=== PATIENT | male | born 1940 | race Caucasian/White ===

== ENCOUNTER 2019-02-28 17:36 | Inpatient (IN) ==
--- OUTSIDE RECORDS SUMMARY | 2019-02-28 17:40 | External Medical Summary | Continuity of Care Document ---
:1940 Author Name Taurus Albarado Address Unavailable Unavailable , Care Team Providers Name Role Phone NonMNPG Verena Unavailable [email or web address] Unavailable Unavailable Unavailable Unavailable Unavailable Problems Active medical history not documented Allergies and Adverse Reactions No Known Drug Allergies (Allergy) Medications MiraLax Oral Powder; MIX 1 CAPFUL (17GM) IN 8 OUNCES OF WATER, JUICE, OR TEA AND DRINK DAILY. Start: 23-May-2017 Refills: 0 Latanoprost 0.005 % Ophthalmic Solution; INSTILL 1 DROP IN BOTH EYES AT BEDTIME. Start: 23-May-2017 Refills: 0 2.5 ML Bottle Aspirin 81 MG Oral Tablet Delayed Release; TAKE 1 TABLET OUMAR LY DIRECTED. Start: 23-May-2017 Refills: 0 Labetalol HCl - 100 MG Oral Tablet; TAKE 1/2 TABLET EVERY 12 HOURS DAILY. Start: 23-May-2017 Refills: 0 Cosopt 22.3-6.8 MG/ML Ophthalmic Solutio n; INSTILL 1 DROP INTO BOTH EYES 2 TIMES DAILY. Start: 23-May-2017 Refills: 0 10 ML Bottle NovoLOG FlexPen 100 UNIT/ML Subcutaneous Solution Pen-injector; Inject 11 units with breakfast Start: 23-May-2017 Refills: 0 5 x 3 ML Pen Vitamin D3 2000 UNIT Oral Capsule; TAKE 3 CAPSULES DAILY Start: 23-May-2017 Refills: 0 amLODIPine Besylate 10 MG Oral Tablet; TAKE 1 TABLET DAILY. Start: 23-May-2017 Refills: 0 30 Tablet Bottle HumuLIN N KwikPen 100 UNIT/ML Subcutaneo us Suspension Pen-injector; Inject 11 units with breakfastm 12 units at bedtime Start: Refills: 0 3 ML Pen Atorvastatin Calcium 40 MG Oral Tablet; TAKE 1 TABLET DAILY. Start: 23-May-2017 Quantity: 90 Refills: 3 Finasteride 5 MG Oral Tablet; TAKE 1 TABLET DAILY. Start: 23-May-2017 Refills: 0 Tamsulosin HCl - 0.4 MG Oral Capsule; TAKE 1 CAPSULE BY LANDON H DAILY Start: 23-May-2017 Refills: 0 Renal Multivitamin Formula Oral Tablet; TAKE DIRECTED. Start: 23-May-2017 Refills: 0 Calcium Acetate (Phos Binder) 667 MG Ora l Capsule; TAKE 1 CAPSULE 3 TIMES DAILY WITH MEALS. Start: 23-May-2017 Refills: 0 Procedures History of laminectomy Status: Completed Immunizations Varicella On: 09-Apr-2016 Tdap On: 26-May-2016 Pneumovax 23 25 MCG/0.5ML Injection Injectable On: 09-Apr-20 17 Influenza On: 12-May-2017 Family History Unknown Family Member Family history of ESRD (end stage renal Status: Active Comments: Family History disease) (585.6) (N18.6) Social History - Smoking Status Former smoker Plan of Treatment Planned Observations Planned Goals not documented Results No Known Results Results not documented Encounters Appointment; Hilton Mosley PA-C 24-May-2017 15:00 Encounter Diagnosis: Problem not documented Appointment; Donna Gifford R.D. 24-May-2017 14:00 Encounter Diagnosis: Problem not documented
[2019-02-28] MEDS ORDERED: ALBUT/IPRATROP 3MG/0.5MG NEB 3 ML VIAL NEB STA (17:49)
[2019-02-28] MEDS ORDERED: ONDANSETRON INJ 2 MG/ML 2 ML VIAL IV STA (17:49)
[2019-02-28] MEDS ORDERED: ALBUTEROL 0.083% NEBU SOLN 3 ML VIAL ONE (17:50)
[2019-02-28] MEDS ORDERED: ALBUTEROL 0.083% NEBU SOLN 3 ML VIAL NEB STA (17:55)
[2019-02-28 18:21] LABS: Basophils # (auto) 0.02 K/uL (0-0.2); Basophils % (auto) 0.1 %; Eosinophils # (auto) 0.05 K/uL (0-0.5); Eosinophils % (auto) 0.4 %; Hematocrit (blood only) 29.2 % (42-52); Hemoglobin 9.4 g/dL (14.0-18.0); Immature Granulocytes # (auto) 0.04 K/uL (0.00-0.02); Immature Granulocytes % (auto) 0.3 %; Lymphocytes # (auto) 0.99 K/uL (1.2-3.4); Lymphocytes % (auto) 7.3 %; Mean Corpuscular Hgb Conc 32.2 g/dL (32-36); Mean Corpuscular Volume 99.3 fL (80-100); Mean Platelet Volume 9.6 fL (7.4-10.4); Monocytes % (auto) 8.9 %; Neutrophils # (auto) 11.23 K/uL (1.4-6.5); Platelet Count 303 K/uL (130-400); RDW Coefficient of Variation 17.4 % (11.5-14.5); Red Blood Count 2.94 M/uL (4.7-6.1); White Blood Count 13.53 K/uL (4.8-10.8)
[2019-02-28 18:28] LABS: iSTAT Creatinine 8.2 mg/dl (0.6-1.3); iSTAT Hemoglobin 9.9 g/dl (14.0-18.0); iSTAT Ionized Calcium 1.07 mmol/l (1.12-1.32); iSTAT Potassium 4.1 mEq/L (3.3-5.0)
[2019-02-28 19:06] LABS: Alanine Aminotransferase < 6 U/L (12-78); Albumin Globulin Ratio 0.6 (0.9-2); Albumin Level 2.3 gm/dl (3.4-5.0); Alkaline Phosphatase 111 U/L (45-117); Aspartate Aminotransferase 41 U/L (15-37); BUN Creatinine Ratio 9.8 (10-20); Bilirubin,Total 0.5 mg/dl (0.2-1); Blood Urea Nitrogen 79 mg/dl (7-18); Calcium 8.3 mg/dl (8.5-10.1); Carbon Dioxide 28 mmol/L (21-32); Chloride 93 mmol/L (98-107); Creatine Kinase 156 U/L (39-308); Est GFR (African American) 6.8; Est GFR (Non-African American) 5.9; Globulin 4.1 gm/dl (2.5-4.0); Glucose 225 mg/dl (70-99); Potassium 4.1 mmol/L (3.5-5.1); Sodium 131 mmol/L (136-145); Total Protein 6.4 gm/dl (6.4-8.2)
--- NOTE | 2019-02-28 19:12 | XRay Report ---
SINGLE VIEW CHEST CLINICAL HISTORY: Generalized weakness. FINDINGS: An AP, portable, upright chest radiograph is obtained. No prior studies are available for c omparison at the time of dictation. The examination is degraded by portable technique and patient rot ation. The heart is enlarged and there is atherosclerotic calcification of the thoracic aorta. There is pulmonary vascular congestion and interstitial edema. There are layering pleural effusions with b ibasilar consolidation. No pneumothorax is seen. The skeletal structures are osteopenic. The bony tho rax is grossly intact. Degenerative change is noted in the shoulders and thoracic spine. IMPRESSION: 1. Cardiomegaly with evidence of congestive failure and interstitial edema. 2. Layering pleural effusions with bibasilar consolidation. This likely represents atelectasis. Jess elijah clinically for evidence of superimposed pneumonia. Electronically signed by: Jeevan Puente M.D. 02/28/2019 7:11 PM
[2019-02-28] MEDS ORDERED: FUROSEMIDE 80 MG in SYRINGE 0 ML IV ONE (19:13)
[2019-02-28] MEDS ORDERED: ASPIRIN CHEW 324 MG PO STA (19:18)
--- NOTE | 2019-02-28 20:17 | Emergency Department Note ---
Entered by Rochelle Stroud acting as a scribe for Fam Sanchez DO History of Present Illness General Chief complaint: Shortness of Breath/Dyspnea Stated complaint: SOB Time Seen by Provider: 02/28/19 17:42 Source: patient History of Present Illness Provider complaint: breathing isues Onset (ago): hour(s) 10 Location: chest Pain Consistency: + intermittent Quality: + other (raspy breahting) Relieved By: + none Exacerbated By: + none Associated symptoms: + denies other symptoms and + nausea/vomiting The patient is a 78 y/o male who presents to the emergency department for evaluation of intermittent vomiting and breathing difficulty. The patient was brought in by EMS from [facility] where he was admitted for renal failure. They state that he was on CPAP when they brought him in but he has been vomiting. The patient states that he is not feeling well in his upper half. He reports that he is nauseous and has raspy breathing. The patient states that he has a cough and a little mucous out of his nose. He notes he is on home dialysis. He denies having trouble breathing, abdominal pain, and any other symptoms. Home Medications Home Medications Medication Instructions Recorded Confirmed Type B complex with C#20-folic acid 1 cap PO DAILY 02/28/19 02/28/19 History [Renal Caps] acetaminophen 650 mg PO Q4H PRN 02/28/19 02/28/19 History aspirin 81 mg PO DAILY 02/28/19 02/28/19 History atorvastatin 40 mg PO DAILY 02/28/19 02/28/19 History bisacodyl 10 mg NE DAILY PRN 02/28/19 02/28/19 History clopidogrel 75 mg PO DAILY 02/28/19 02/28/19 History docusate sodium 100 mg PO BID 02/28/19 02/28/19 History dorzolamide-timolol 1 drp OPB BID 02/28/19 02/28/19 History finasteride 5 mg PO DAILY 02/28/19 02/28/19 History heparin (porcine) 5,000 unit SUBCUT Q12H 02/28/19 02/28/19 History insulin aspart U-100 [Novolog 8 unit SUBCUT TIDM 02/28/19 02/28/19 History Flexpen U-100 Insulin] insulin aspart U-100 [Novolog 1 sliding scale dose SUBCUT 02/28/19 02/28/19 History U-100 Insulin aspart] USEASDIRECTD insulin glargine 14 unit SUBCUT DAILY 02/28/19 02/28/19 History latanoprost 1 drp OPB HS 02/28/19 02/28/19 History magnesium hydroxide [Milk Of 30 ml PO DAILY PRN 02/28/19 02/28/19 History Magnesia Concentrated] nitroglycerin 0.4 mg SUBLINGUAL DIRECTED PRN 02/28/19 02/28/19 History nystatin 1 applic TOPICAL BID 02/28/19 02/28/19 History oxycodone-acetaminophen 1 tab PO Q6H PRN 02/28/19 02/28/19 History pantoprazole 40 mg PO QAM 02/28/19 02/28/19 History polyethylene glycol 3350 [Miralax] 17 g PO .Q LUNCH PRN 02/28/19 02/28/19 History polyethylene glycol 3350 [Miralax] 17 g PO DAILY 02/28/19 02/28/19 History sennosides-docusate sodium 1 tab PO .Q LUNCH PRN 02/28/19 02/28/19 History [Senokot-S] sertraline 50 mg PO DAILY 02/28/19 02/28/19 History sevelamer carbonate 1,600 mg PO TIDM 02/28/19 02/28/19 History sodium phosphates [Fleet Enema] 133 ml NE DAILY PRN 02/28/19 02/28/19 History tamsulosin 0.4 mg PO DAILY 02/28/19 02/28/19 History Allergies Allergy/AdvReac Type Severity Reaction Status Date / Time No Known Allergies Allergy Verified 02/28/19 19:45 Past Med/Surg History Medical History Dialysis patient (Chronic) Social History Feels Safe at Home: Yes Review of Systems See HPI for pertinent positives & negatives. and A total of 10 systems reviewed and were otherwise negative Physical Exam Vital Signs Vital Signs - 24 hr 02/28/19 17:53 02/28/19 17:56 02/28/19 18:25 Temperature 36.8 C Temperature Source Oral Sepsis Recent Fever Within 48 Hours No Sepsis New/Unexplained Change in Mental Status No Sepsis Action Taken by Nursing No Action Required Fraction of Inspired Oxygen - Titration Pulse Oximetry Post Tiitration Pulse Rate 113 H Pulse Rate [Apical] 112 H Respiratory Rate 35 H 38 H Respiratory Effort / Characteristics Labored Short of Breath Spontaneous Short of Breath Respiratory Depth Respiratory Pattern Tachypnea Blood Pressure 105/73 Blood Pressure [Right Arm] Blood Pressure Mean 83 Blood Pressure Mean [Right Arm] Blood Pressure Position Left Lateral Pulse Oximetry 94 94 95 Oxygen Delivery Method Oxymask Oxymask Oxymask Oxygen Flow Rate 7 7 7 02/28/19 18:32 02/28/19 18:44 02/28/19 20:07 Temperature Temperature Source Sepsis Recent Fever Within 48 Hours Sepsis New/Unexplained Change in Mental Status Sepsis Action Taken by Nursing Fraction of Inspired Oxygen - Titration 7 Pulse Oximetry Post Tiitration 94 Pulse Rate Pulse Rate [Apical] 98 H 90 Respiratory Rate 26 H 20 Respiratory Effort / Characteristics Non-Labored Spontaneous Non-Labored Spontaneous Respiratory Depth Normal Normal Respiratory Pattern Blood Pressure Blood Pressure [Right Arm] 98/56 L 85/53 L Blood Pressure Mean Blood Pressure Mean [Right Arm] 70 63 Blood Pressure Position Pulse Oximetry 88 L 100 92 Oxygen Delivery Method Nasal Cannula Oxymask Room Air Oxygen Flow Rate 6 6 CONSTITUTIONAL/VITAL SIGNS: Reviewed / noted above. GENERAL: Non-toxic in appearance. INTEGUMENTARY: Warm, dry, and [place]. HEAD: Normocephalic. EYES: without scleral icterus or trauma. ENT/OROPHARYNX: clear and moist. LYMPHADENOPATHY/NECK: Is supple without lymphadenopathy or meningismus. RESPIRATORY: Rhonchi in bilateral lungs. Tachypnea CARDIOVASCULAR: Regular rate and rhythm. GI/ABDOMEN: Soft and nontender. No organomegaly or pulsatile mass. No rebound or guarding. Normal bowel sounds. Dialysis catheter in place in the left lower EXTREMITIES: Warm and well perfused. BACK: No CVA tenderness. NEUROLOGICAL: Intact without focal deficits. PSYCHIATRIC: normal affect. MUSCULOSKELETAL: Normally developed with good muscle tone. Course 1743: Past medical records reviewed. The patient was evaluated in room A03. A complete history and physical exam was performed. 1919:I checked on the patient and his family. They were updated him on his results. 1954: I spoke with Brigette DANIELS [facility] hospitalist. She will evaluate for further management. Consultations Consultation #1: I spoke with Brigette DANIELS [facility] hospitalist. She will evaluate for further management. Time: 19:55 Administered Medications Discontinued Medications Albuterol (Ventolin 0.083% 2.5mg/3ml) Confirm Administered Dose 2.5 mg .ROUTE .STK-MED ONE Stop: 02/28/19 17:51 Last Admin: 02/28/19 18:42 Dose: Not Given Documented by: [id number] Albuterol (Duoneb) 3 ml NEB NOW STA Stop: 02/28/19 17:50 Last Admin: 02/28/19 17:54 Dose: Not Given Documented by: [id number] Albuterol (Ventolin 0.083% 2.5mg/3ml) 2.5 mg NEB NOW STA Stop: 02/28/19 17:56 Last Admin: 02/28/19 17:56 Dose: 2.5 mg Documented by: [id number] Aspirin (Aspirin) 324 mg PO NOW STA Stop: 02/28/19 19:19 Last Admin: 02/28/19 19:25 Dose: 324 mg Documented by: [id number] Ondansetron HCl (Zofran) 4 mg IV NOW STA Stop: 02/28/19 17:50 Last Admin: 02/28/19 18:42 Dose: 4 mg Documented by: [id number] Medical Decision Making Differential Diagnosis Differential includes acute coronary syndrome, myocardial infarction, CVA, TIA, anemia, infection, pneumonia, UTI, pyelonephritis, poor nutrition, dehydration, electrolyte disturbance,hypoglycemia. Medical Records Attestation: I reviewed the patient's medical records. Home Medications Current Medication List: was personally reviewed by me Laboratory Data Attestation: I reviewed the patient's lab results. Result diagrams: 02/28/19 18:00 02/28/19 18:00 Lab Results 02/28/19 02/28/19 02/28/19 Range/Units 18:00 18:00 18:11 WBC 13.53 H (4.8-10.8) K/uL RBC 2.94 L (4.7-6.1) M/uL Hgb 9.4 L (14.0-18.0) g/dL POC Hgb (14.0-18.0) g/dl Hct 29.2 L (42-52) % POC Hct (42-52) % MCV 99.3 (80-100) fL MCH 32.0 (25-34) pg MCHC 32.2 (32-36) g/dL RDW Std Deviation 63.0 H (36.4-46.3) fL RDW Coeff of Mp 17.4 H (11.5-14.5) % Plt Count 303 (130-400) K/uL MPV 9.6 (7.4-10.4) fL Immature Gran % (Auto) 0.3 % Neut % (Auto) 83.0 % Lymph % (Auto) 7.3 % Burnett % (Auto) 8.9 % Eos % (Auto) 0.4 % Baso % (Auto) 0.1 % Immature Gran # (Auto) 0.04 H (0.00-0.02) K/uL Neut # (Auto) 11.23 H (1.4-6.5) K/uL Lymph # (Auto) 0.99 L (1.2-3.4) K/uL Burnett # (Auto) 1.20 H (0.11-0.59) K/uL Eos # (Auto) 0.05 (0-0.5) K/uL Baso # (Auto) 0.02 (0-0.2) K/uL POC Sodium (135-144) mEq/L Sodium 131 L (136-145) mmol/L POC Potassium (3.3-5.0) mEq/L Potassium 4.1 (3.5-5.1) mmol/L POC Chloride (101-112) mEq/L Chloride 93 L (98-107) mmol/L Carbon Dioxide 28 (21-32) mmol/L POC Total CO2 (24-31) mEq/l Anion Gap 10.0 (3-11) POC Anion Gap (16-25) mmol/L POC BUN (7-18) mg/dl BUN 79 H (7-18) mg/dl Creatinine 7.98 H* (0.6-1.4) mg/dl POC Creatinine (0.6-1.3) mg/dl Est Cr Clr Drug Dosing 10.0 ml/min Est GFR ( Amer) 6.8 Est GFR (Non-Af Amer) 5.9 BUN/Creatinine Ratio 9.8 L (10-20) Glucose 225 H (70-99) mg/dl POC Glucose (other) (70-99) mg/dl POC Lactic Acid Darell 1.45 (0.90-1.70) mmol/L Calcium 8.3 L (8.5-10.1) mg/dl POC Ioniz Calcium Jonah (1.12-1.32) mmol/l Total Bilirubin 0.5 (0.2-1) mg/dl AST 41 H (15-37) U/L ALT < 6 L (12-78) U/L Alkaline Phosphatase 111 (45-117) U/L Total Creatine Kinase 156 (39-308) U/L Troponin I 6.080 H* (0-0.045) ng/ml Total Protein 6.4 (6.4-8.2) gm/dl Albumin 2.3 L (3.4-5.0) gm/dl Globulin 4.1 H (2.5-4.0) gm/dl Albumin/Globulin Ratio 0.6 L (0.9-2) 07/17/19 Range/Units 18:15 WBC (4.8-10.8) K/uL RBC (4.7-6.1) M/uL Hgb (14.0-18.0) g/dL POC Hgb 9.9 L (14.0-18.0) g/dl Hct (42-52) % POC Hct 29 L (42-52) % MCV (80-100) fL MCH (25-34) pg MCHC (32-36) g/dL RDW Std Deviation (36.4-46.3) fL RDW Coeff of Mp (11.5-14.5) % Plt Count (130-400) K/uL MPV (7.4-10.4) fL Immature Gran % (Auto) % Neut % (Auto) % Lymph % (Auto) % Burnett % (Auto) % Eos % (Auto) % Baso % (Auto) % Immature Gran # (Auto) (0.00-0.02) K/uL Neut # (Auto) (1.4-6.5) K/uL Lymph # (Auto) (1.2-3.4) K/uL Burnett # (Auto) (0.11-0.59) K/uL Eos # (Auto) (0-0.5) K/uL Baso # (Auto) (0-0.2) K/uL POC Sodium 131 L (135-144) mEq/L Sodium (136-145) mmol/L POC Potassium 4.1 (3.3-5.0) mEq/L Potassium (3.5-5.1) mmol/L POC Chloride 91 L (101-112) mEq/L Chloride (98-107) mmol/L Carbon Dioxide (21-32) mmol/L POC Total CO2 25 (24-31) mEq/l Anion Gap (3-11) POC Anion Gap 20.0 (16-25) mmol/L POC BUN 76 H (7-18) mg/dl BUN (7-18) mg/dl Creatinine (0.6-1.4) mg/dl POC Creatinine 8.2 H* (0.6-1.3) mg/dl Est Cr Clr Drug Dosing ml/min Est GFR ( Amer) Est GFR (Non-Af Amer) BUN/Creatinine Ratio (10-20) Glucose (70-99) mg/dl POC Glucose (other) 231 H (70-99) mg/dl POC Lactic Acid Darell (0.90-1.70) mmol/L Calcium (8.5-10.1) mg/dl POC Ioniz Calcium Jonah 1.07 L (1.12-1.32) mmol/l Total Bilirubin (0.2-1) mg/dl AST (15-37) U/L ALT (12-78) U/L Alkaline Phosphatase (45-117) U/L Total Creatine Kinase (39-308) U/L Troponin I (0-0.045) ng/ml Total Protein (6.4-8.2) gm/dl Albumin (3.4-5.0) gm/dl Globulin (2.5-4.0) gm/dl Albumin/Globulin Ratio (0.9-2) ECG Data Attestation: I personally reviewed and interpreted this ECG as follows: Indication: SOB/dyspnea and vomiting Rate (beats per minute): 103 Rhythm: sinus tachycardia Findings: + 1st degree AV block and + T-wave inversion (Inferior, lateral ) Comparison ECG Date: no prior available Blood Pressure Blood Pressure Findings: Low blood pressure Blood Pressure Disposition: further management by hospitalist ANEESH Zapata This is a 78-year-old male who presents to the ED from [facility]. He is there for rehab. The patient normally goes to [facility]. He came in with a chief complaint of nausea all day today. He has an off-and-on cough. The patient denies any chest pains or shortness of breath. He denies any abdominal pains. Family reports history of stent 3 months ago. Family also reports history of congestive heart failure for which he was recently discharged from [facility] [address]. They also reported that his blood pressure has regularly been around 80 during cardiac rehab. His physical exam today reveals he appears to be tachypneic and having some mild increased work of breathing but denies shortness of breath. His CBC reveals a white count of 13.5. His hemog lobin is 9.4. Troponin was elevated at 6.08. BUN is 79 and creatinine is 7.98. He does do peritoneal dialysis. Wvrhj-ry-[id number] lactic was normal. Glucose was 239. EKG shows a sinus tach at a rate of 103 with a first-degree AV block and some T wave inversions inferior and lateral. No old EKG was available for comparison. The patient was treated with IV Zofran. This improved his nausea. Lasix IV was ordered but this was held because of his blood pressure in the 80s. On reassessment, the patient is on a couple of liters of oxygen and saturating around 95%. He appears to be comfortable and in no acute distress. He was given aspirin p.o. for the elevated troponin. [facility] for further inpatient evaluation and care. Impression & Plan Congestive heart failure, Elevated troponin Discharge Plan Visit Data Chief Complaint: Shortness of Breath/Dyspnea Stated Complaint: SOB ED Provider: Fam Sanchez Discharge Problem: Congestive heart failure, Elevated troponin Patient Disposition: Being Evaluated by Hospitalist Forms Stand Alone Forms: My [facility] [employer] Prescriptions Prescriptions: No Action latanoprost 0.005 % drops 1 drp OPB HS RF: 0 atorvastatin 40 mg tablet 40 mg PO DAILY RF: 0 acetaminophen 325 mg Tablet 650 mg PO Q4H PRN (Reason: Pain) RF: 0 insulin glargine 100 unit/mL Solution 14 unit SUBCUT DAILY RF: 0 sennosides-docusate sodium [Senokot-S] 8.6-50 mg Tablet 1 tab PO .Q LUNCH PRN (Reason: Constipation) RF: 0 clopidogrel 75 mg tablet 75 mg PO DAILY RF: 0 oxycodone-acetaminophen 5-325 mg Tablet 1 tab PO Q6H PRN (Reason: Pain) RF: 0 tamsulosin 0.4 mg capsule 0.4 mg PO DAILY RF: 0 Novolog U-100 Insulin aspart 100 unit/mL Solution 1 sliding scale dose SUBCUT USEASDIRECTD RF: 0 bisacodyl 10 mg Suppository 10 mg NE DAILY PRN (Reason: Constipation) RF: 0 pantoprazole 40 mg Tablet,Delayed Release (Dr/Ec) 40 mg PO QAM RF: 0 Fleet Enema 19-7 gram/118 mL Enema 133 ml NE DAILY PRN (Reason: Constipation) RF: 0 nitroglycerin 0.4 mg tablet, sublingual 0.4 mg sublingual DIRECTED PRN (Reason: Chest Pain) RF: 0 docusate sodium 100 mg Capsule 100 mg PO BID RF: 0 aspirin 81 mg Tablet,Chewable 81 mg PO DAILY RF: 0 dorzolamide-timolol 22.3-6.8 mg/mL drops 1 drp OPB BID RF: 0 nystatin 100,000 unit/gram Powder 1 applic TOPICAL BID RF: 0 Renal Caps 1 mg Capsule 1 cap PO DAILY RF: 0 polyethylene glycol 3350 [Miralax] 17 gram/dose Powder 17 g PO DAILY RF: 0 polyethylene glycol 3350 [Miralax] 17 gram/dose Powder 17 g PO .Q LUNCH PRN (Reason: Constipation) RF: 0 sertraline 50 mg Tablet 50 mg PO DAILY RF: 0 heparin (porcine) 5,000 unit/mL Solution 5,000 unit SUBCUT Q12H RF: 0 finasteride 5 mg tablet 5 mg PO DAILY RF: 0 Novolog Flexpen U-100 Insulin 100 unit/mL (3 mL) insulin pen 8 unit subcut TIDM RF: 0 Milk Of Magnesia Concentrated 2,400 mg/10 mL Suspension 30 ml PO DAILY PRN (Reason: Constipation) RF: 0 sevelamer carbonate 800 mg tablet 1,600 mg PO TIDM RF: 0 Referrals Referrals: PCP,NO [Primary Care Provider] - Discharge Problem: Congestive heart failure Qualifiers: Heart failure type: unspecified Heart failure chronicity: unspecified Qualified Code(s): I50.9 - Heart failure, unspecified The scribe's documentation has been prepared under my direction and personally reviewed by me in its entirety. I confirm that the note above accurately reflects all work, treatment, procedures, and medical decision making performed by me.
[2019-02-28] MEDS ORDERED: CONSULT PHARMACY STA (21:16)
--- NOTE | 2019-02-28 21:18 | History & Physical Report ---
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 In ED upon arrival initially patient was hypoxic, tachypneic He received albuterol nebulizer treatment and required oxygen mask supplementation His W BC was 13.53, H&H 9.4 and 29.2, platelet 303 Sodium 131, potassium 4.1, CO2 28, BUN 79, creatinine 7.98, glucose 220 His initial troponin was 6.08 Chest x-ray reveals cardiomegaly with evidence of congestive heart failure and interstitial edema along with layering pleural effusions with bibasilar consolidation likely representing atelectasis but correlate clinically for superimposed pneumonia. Initially patient was ordered Lasix 80 mg IV given CXR x-ray results however this was not given due to patient continuing to be hypotensive. He was able to be weaned off oxygen after albuterol nebulizer treatment. Possible Sepsis Upon admission pt met Sepsis criteria with hypotension, leukocytosis, tachypnea, tachycardia His lactate was WNL Blood cultures were obtained IV fluid was not administered given patient's end-stage renal disease Source: Possible aspiration pneumonitis; however sepsis criteria also met possibly secondary to respiratory distress given the pneumonitis and reactive airway disease admit to PCU Initiate broad spectrum IV antibiotics with Rocephin and Flagyl (avoid QT prolonging agents given QTC) aggressive pulmonary toilet with duoneb, incentive spirometry, flutter valve IV methylprednisolone 40 mg every 8 hours (2) CAD (coronary artery disease): Patient with known CAD and PCI to RCA with ANNIE 10/2018 On dual antiplatelet therapy with aspirin and Plavix Off coreg and lisinopril due to hypotension Continue high intensity statin last echo 01/2019 revealed slight improvement of EF to 40% with inferior, posterior, septal wall severe hypokinesia Troponin elevated today at 6.080, ECG with T wave inversion anterior laterally Patient currently without active chest pain or shortness of breath Will trend troponin every 6 hours Obtain repeat echocardiogram in a.m. consult cardiology - Dr. Sanchez spoke to Dr. Valerio who recommended conservative measures and monitoring for now (3) Ischemic cardiomyopathy: as above (4) Systolic CHF: as above daily weights strict I and Os [facility] baseline weight 98-100kg, today 108kg cardiology consulted (5) ESRD (end stage renal disease) on dialysis: Pt on nightly PD given hypotension will not tolerate PD this evening consult nephro renal diet continue sevelamer (6) IDDM (insulin dependent diabetes mellitus): Last A1c 6.0 on 10/2018 Currently on Lantus 14 units daily along with NovoLog with meals consult glycemic pharmacist for management given addition of steroids, appreciate their input given co morbidities loose control is acceptable to prevent hypoglycemia (7) ANI on CPAP: CPAP at bedtime (8) Anemia: H/H stable at 9.4 and 29.2 Monitor CBC closely (9) DVT prophylaxis: SQ Heparin, TEDS, SCDS Disposition: to be determined, case management consulted Follow up: PCP Dr. St upon discharge along with appropriate cardiology and nephrology follow up Patient was seen and examined in collaboration with Dr. Paulson, please see addendum for further details regarding assessment and plan Starting 03/01/2019 patient will be under the care of Dr. Cuba History of Present Illness Chief Complaint: Nausea, emesis and SOB x 1 day. 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 Brother is at bedside. Pt currently at [facility] for acute rehab. He recently underwent kyphoplasty for acute lumbar compression fracture in early February. When at rehab today he overall didn't feel well, nauseated and had episode of emesis. Per brother when patient was eating lunch today he had episode of choking. The choking episode preceded his other symptoms. Since choking he developed moist cough, rhinorrhea and SOB. He denies any fever, chills, sweats, lightheadedness, dizziness, chest pain, abdominal pain, diarrhea. He makes minimal urine given PD. According to brother he has been compliant with PD but he is unaware of patient's weights because he did not seem to be measuring his weights. Appetite has overall been poor. According to brother he has had fluctuating blood sugars. Of significant note patient was hospitalized at [facility] [place] 10/2018. Initially he was hospitalized at [facility] and was transferred to [facility] secondary to elevated troponin. He underwent heart catheterization and had ANNIE to RCA. He was diagnosed with ischemic cardiomyopathy and an EF of 35%. He was started on dual antiplatelet regimen of aspirin and Plavix, high intensity statin as well as carvedilol and lisinopril. Subsequent during hospitalization he developed acute anemia and was diagnosed with a femoral hematoma which required blood transfusion. Patient was discharged home and has been participating in cardiac rehab. He did undergo an echocardiogram on 01/16/2019 which did reveal slight improvement in his EF to 40% with inferior, posterior and septal wall severely hypokinetic. Because of the improvement in the EF at this time and AICD is no longer recommended. Unfortunately patient has been having difficulty with hypotension and due to this his lisinopril and Coreg have since been discontinued. Allergies Allergy/AdvReac Type Severity Reaction Status Date / Time No Known Allergies Allergy Verified 02/28/19 19:45 Home Medications Home Medications Medication Instructions Recorded Confirmed Type B complex with C#20-folic acid 1 cap PO DAILY 02/28/19 02/28/19 History [Renal Caps] acetaminophen 650 mg PO Q4H PRN 02/28/19 02/28/19 History aspirin 81 mg PO DAILY 02/28/19 02/28/19 History atorvastatin 40 mg PO DAILY 02/28/19 02/28/19 History bisacodyl 10 mg [place] DAILY PRN 02/28/19 02/28/19 History clopidogrel 75 mg PO DAILY 02/28/19 02/28/19 History dextrose [Glucose Gel] 15 g PO DIRECTED PRN 02/28/19 02/28/19 History docusate sodium 100 mg PO BID 02/28/19 02/28/19 History dorzolamide-timolol 1 drp OPB BID 02/28/19 02/28/19 History finasteride 5 mg PO DAILY 02/28/19 02/28/19 History glucagon HCl 1 mg SUBCUT DIRECTED PRN 02/28/19 02/28/19 History heparin (porcine) 5,000 unit SUBCUT Q12H 02/28/19 02/28/19 History insulin aspart U-100 [Novolog 8 unit SUBCUT TIDM 02/28/19 02/28/19 History Flexpen U-100 Insulin] insulin aspart U-100 [Novolog 1 sliding scale dose SUBCUT 02/28/19 02/28/19 History U-100 Insulin aspart] USEASDIRECTD insulin glargine 14 unit SUBCUT DAILY 02/28/19 02/28/19 History latanoprost 1 drp OPB HS 02/28/19 02/28/19 History magnesium hydroxide [Milk Of 30 ml PO DAILY PRN 02/28/19 02/28/19 History Magnesia Concentrated] nitroglycerin 0.4 mg SUBLINGUAL DIRECTED PRN 02/28/19 02/28/19 History nystatin 1 applic TOPICAL BID 02/28/19 02/28/19 History oxycodone-acetaminophen 1 tab PO Q6H PRN 02/28/19 02/28/19 History pantoprazole 40 mg PO QAM 02/28/19 02/28/19 History polyethylene glycol 3350 [Miralax] 17 g PO .Q LUNCH PRN 02/28/19 02/28/19 History polyethylene glycol 3350 [Miralax] 17 g PO DAILY 02/28/19 02/28/19 History sennosides-docusate sodium 1 tab PO .Q LUNCH PRN 02/28/19 02/28/19 History [Senokot-S] sertraline 50 mg PO DAILY 02/28/19 02/28/19 History sevelamer carbonate 1,600 mg PO TIDM 02/28/19 02/28/19 History sodium phosphates [Fleet Enema] 133 ml [place] DAILY PRN 02/28/19 02/28/19 History tamsulosin 0.4 mg PO DAILY 02/28/19 02/28/19 History Past Med/Surg History Medical History Ischemic cardiomyopathy (Chronic) Ischemic heart disease (Chronic) CAD (coronary artery disease) (Chronic) s/p ANNIE to RCA 10/2018 [facility] [place] IDDM (insulin dependent diabetes mellitus) (Chronic) ESRD (end stage renal disease) on dialysis (Chronic) ANI on CPAP (Chronic) HTN (hypertension) (Chronic) Anemia (Chronic) Dialysis patient (Chronic) Surgical History History of kyphoplasty (Chronic) History of lumbar laminectomy (Chronic) History of cardiac cath (Chronic) Family History Other Kidney disease Social History Preferred Language: Icelandic Communication Ability: Effective Fluid Pump Operator Required: No Beliefs That Will Affect Care: None marital status: / Current Living Situation: Family Feels Safe at Home: Yes Safety Concerns: Feels Safe At This Time Smoking Status: Former smoker Second Hand Exposure: No Tobacco Cessation Education Requested by Patient: No Hx Alcohol Use: No Hx Substance Use: No Review of Systems Review of Systems: As noted per HPI, 10 systems reviewed and negative unless noted above. Physical Exam Physical Exam: Gen: Tall, elderly, male, appears chronically ill, sitting up in bed, pleasant, conversing easily, mild respiratory distress Head: Normocephalic, Atraumatic, b/l temporal wasting Eyes: Sclera normal, no conjunctival injection, PERRLA, EOMI ENT: Gross hearing intact, normal pharynx, mucous membranes moist Neck: supple, no adenopathy, No JVD, no bruit, Resp: Diffuse inspiratory and expiratory rhonchi and wheezing noted throughout, increased inspiratory effort, abdominal accessory muscle use CV: Regular rate, regular rhythm, no murmur, rub, gallop, or ectopy Abd: +BS x 4, soft, nontender, nondistended Musculoskeletal: moves extremities active rom x 4, strength intact, 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 Extremities: No edema bilaterally Skin: warm, moist, no rash, negative turgor, cap refill < 2sec Neuro: Alert and oriented x 3, speech normal, flat mood/affect, cran nerve 2-12 intact grossly : deferred Results & Data Vital Signs (Past 12 Hours) Vital Signs Temp Pulse Pulse Resp BP BP Pulse Ox 02/28/19 21:15 88 20 84/49 L 93 02/28/19 20:07 90 20 85/53 L 92 02/28/19 18:44 98 H 26 H 98/56 L 100 02/28/19 18:32 88 L 02/28/19 18:25 95 02/28/19 17:56 112 H 38 H 94 02/28/19 17:53 36.8 C 113 H 35 H 105/73 94 Laboratory Results Short CBC 02/28/19 02/28/19 Range/Units 18:00 18:00 WBC 13.53 H (4.8-10.8) K/uL Hgb 9.4 L (14.0-18.0) g/dL Hct 29.2 L (42-52) % Plt Count 303 (130-400) K/uL Troponin I 6.080 H* (0-0.045) ng/ml BMP 02/28/19 18:00 Sodium 131 L Potassium 4.1 Chloride 93 L Carbon Dioxide 28 BUN 79 H Creatinine 7.98 H* Glucose 225 H Calcium 8.3 L Cardiac Enzymes 02/28/19 Range/Units 18:00 Total Creatine Kinase 156 (39-308) U/L Troponin I 6.080 H* (0-0.045) ng/ml Liver Function 02/28/19 Range/Units 18:00 Total Bilirubin 0.5 (0.2-1) mg/dl AST 41 H (15-37) U/L ALT < 6 L (12-78) U/L Alkaline Phosphatase 111 (45-117) U/L Albumin 2.3 L (3.4-5.0) gm/dl Diagnostic Findings CXR: IMPRESSION: 1. Cardiomegaly with evidence of congestive failure and interstitial edema. 2. Layering pleural effusions with bibasilar consolidation. This likely represents atelectasis. Cortical clinically for evidence of superimposed pneumonia. Medications Administered Discontinued Medications Albuterol (Ventolin 0.083% 2.5mg/3ml) Confirm Administered Dose 2.5 mg .ROUTE .[facility] Stop: 02/28/19 17:51 Last Admin: 02/28/19 18:42 Dose: Not Given Documented by: [id number] Albuterol (Duoneb) 3 ml NEB NOW STA Stop: 02/28/19 17:50 Last Admin: 02/28/19 17:54 Dose: Not Given Documented by: [id number] Albuterol (Ventolin 0.083% 2.5mg/3ml) 2.5 mg NEB NOW STA Stop: 02/28/19 17:56 Last Admin: 02/28/19 17:56 Dose: 2.5 mg Documented by: [id number] Aspirin (Aspirin) 324 mg PO NOW STA Stop: 02/28/19 19:19 Last Admin: 02/28/19 19:25 Dose: 324 mg Documented by: [id number] Furosemide 80 mg/ Syringe 8 mls @ 4 mls/min IV ONE ONE Stop: 02/28/19 19:14 Last Admin: 02/28/19 20:33 Dose: Not Given Documented by: [id number] Ondansetron HCl (Zofran) 4 mg IV NOW STA Stop: 02/28/19 17:50 Last Admin: 02/28/19 18:42 Dose: 4 mg Documented by: [id number] ECG Rate (beats per minute): 103 Rhythm: sinus tachycardia Findings: + 1st degree AV block and + T-wave inversion (inferolateral) Code Status & VTE Plan Code Status Full Code VTE Prophylaxis Plan VTE Prophylaxis will be ordered: Yes Supervising Physician Co-Signing Physician Notes I saw this patient with the physician assistant women's tennis coach, I participated in the history, physical, review of systems, and physical exam. I reviewed the medications with the patient and the physician assistant women's tennis coach and helped reconcile the medications. I helped take a detailed family and social history as well. I formulated the assessment and plan personally with the physician assistant women's tennis coach and went over it with the patient. His Troponins have bumped and Cards was notified, I started a heparin gtt, Not on BB sec to BP, is on ASA, Statin, Plavix ROS-No Headache, No Visual Changes, No Nausea, No Vomiting, No Fever, No Chills, No Neck Pain or Stiffness, No Chest Pain, No Palpitations, No SOB, No GALVAN, No Cough, No Sputum, No Wheezing, No Abdominal Pain, No Diarrhea, No Hematemesis, No Hemoptysis, No Unexpected Weight Loss, No Flank pain, No Melena, No Hematochezia, No Frequency, No Urgency, No Burning, No Hematuria, No Rashes, No Diaphoresis. Appetite is Normal, +SOB and Cough Physical Exam Gen-AAO x 3, NAD, Afebrile, Pleasant Head-NCAT, EOMI, PERRLA, Anicteric Sclera, No Posterior Pharyngeal Erythema Neck-Supple, No JVD, No Thyromegaly, No Masses, No LAD, No Bruits Lungs-Coarse BS Bilaterally, No Rales, + Rhonchi, + Wheezing, No Crepitus Chest-No S4, +S1, +S2, No S3, No Murmurs, No Rubs, No Gallops, No Ectopy Abdomen-Soft, Bowel Sounds Present, Non Tender, Non Distended, No Hepatomegaly, No Splenomegaly, No Palpable Masses, No Rebound, No Rigidity, No Guarding Musculoskeletal-Full Range of Motion Bilaterally, No CVAT Extremities-No Cyanosis, No Clubbing, No Edema Nuero-Cranial Nerves II-XII grossly intact, Motor WNL, DTRs WNL, Strength WNL, Non Focal Psych-Normal Mood
[2019-02-28] MEDS ORDERED: CARBOHYDRATES FOR HYPOGLYCEMIA PO PRN (22:12)
[2019-02-28] MEDS ORDERED: GLUCAGON FOR INJ 1 MG VIAL SQ PRN ×2 (22:12→22:45)
[2019-02-28] MEDS ORDERED: GLUCOSE 10 TABS/TUBE PO PRN ×2 (22:12→22:45)
[2019-02-28] MEDS ORDERED: GLUCOSE 40% GEL 15 GM TUBE PO PRN ×2 (22:12→22:45)
[2019-02-28] MEDS ORDERED: DEXTROSE 50% 50 ML SYRINGE IV PRN ×2 (22:12→22:45)
[2019-02-28] MEDS ORDERED: ACETAMINOPHEN 325 MG TAB PO PRN (22:12)
[2019-02-28] MEDS ORDERED: ONDANSETRON INJ 2 MG/ML 2 ML VIAL IV PRN (22:12)
[2019-02-28] MEDS ORDERED: POLYETHYLENE (MIRALAX) 17 GM PACK PO PRN (22:12)
[2019-02-28] MEDS ORDERED: NITROGLYCERIN SL 0.4 MG/TAB TAB SL PRN (22:12)
[2019-02-28] MEDS ORDERED: PHARMACY GLYCEMIC MGMT CONSULT PRN (22:28)
[2019-02-28] MEDS ORDERED: METRONIDAZOLE CONSULT ACTIVE PRN (22:29)
[2019-02-28] MEDS ORDERED: ROCEPHIN~PHARMACY CONSULT IN PROGRESS PRN (22:30)
[2019-02-28] MEDS ORDERED: INSULIN GLARGINE SOLOSTAR 100 UNITS/ML 3 ML PEN SC SCH (22:45)
[2019-02-28 22:53] LABS: INR 1.1 (0.9-1.1); Prothrombin Time 10.9 Seconds (9.0-12.0)
[2019-02-28] MEDS ORDERED: cefTRIAXone SODIUM 2,000 MG in DEXTROSE 5% 50 ML IV SCH (23:00)
[2019-02-28] MEDS: methylPREDNISolone 40 MG in SYRINGE 0 ML IV SCH (23:05)
[2019-02-28] MEDS: INSULIN ASPART 100 UNITS/ML 3 ML PEN SC SCH (23:10)
[2019-03-01] MEDS ORDERED: HEPARIN SOD 5,000 UNIT/0.5 ML VIAL SQ SCH
[2019-03-01] MEDS: metroNIDAZOLE 500 MG/100 ML BAG IV SCH ×2 (00:07→08:10)
[2019-03-01] MEDS ORDERED: Heparin Adult STANDARD Wt-Based Dextrose 5% 25,000 units/500 mL IV SCH (02:00)
[2019-03-01] MEDS ORDERED: HEPARIN IV BOLUS 7,000 UNITS in SYRINGE 0 ML IV ONE (02:00)
[2019-03-01] MEDS ORDERED: INSULIN ASPART 100 UNITS/ML 3 ML PEN SC SCH (02:00)
[2019-03-01 02:22] LABS: Hematocrit (blood only) 25.9 % (42-52); Hemoglobin 8.4 g/dL (14.0-18.0); Mean Corpuscular Hgb Conc 32.4 g/dL (32-36); Mean Corpuscular Volume 99.6 fL (80-100); Mean Platelet Volume 9.5 fL (7.4-10.4); Platelet Count 232 K/uL (130-400); RDW Coefficient of Variation 17.6 % (11.5-14.5); RDW Standard Deviation 63.9 fL (36.4-46.3); White Blood Count 11.68 K/uL (4.8-10.8)
[2019-03-01 02:31] LABS: Partial Thromboplastin Ratio 1.2; Partial Thromboplastin Time 32.2 Seconds (21.0-31.0)
[2019-03-01 02:51] LABS: Albumin Globulin Ratio 0.5 (0.9-2); Albumin Level 2.2 gm/dl (3.4-5.0); BUN Creatinine Ratio 10.3 (10-20); Bilirubin,Total 0.4 mg/dl (0.2-1); Creatinine Clr Calc Pharmacy 9.1 ml/min; Est GFR (African American) 6.6; Est GFR (Non-African American) 5.7; Globulin 4.1 gm/dl (2.5-4.0); Magnesium 3.2 mg/dl (1.8-2.4); Potassium 4.5 mmol/L (3.5-5.1); Total Protein 6.3 gm/dl (6.4-8.2)
[2019-03-01 03:04] LABS: Basophils # (auto) 0.01 K/uL (0-0.2); Basophils % (auto) 0.1 %; Eosinophils # (auto) 0.01 K/uL (0-0.5); Eosinophils % (auto) 0.1 %; Immature Granulocytes # (auto) 0.04 K/uL (0.00-0.02); Immature Granulocytes % (auto) 0.3 %; Lymphocytes # (auto) 0.55 K/uL (1.2-3.4); Lymphocytes % (auto) 4.7 %; Monocytes # (auto) 0.49 K/uL (0.11-0.59); Monocytes % (auto) 4.2 %; Neutrophils # (auto) 10.58 K/uL (1.4-6.5); Neutrophils % (auto) 90.6 %
[2019-03-01 06:05] LABS: Estimated Average Glucose 140 mg/dl; Hemoglobin A1C 6.5 % (4.5-5.6)
[2019-03-01] MEDS: methylPREDNISolone 40 MG in SYRINGE 0 ML IV SCH ×3 (06:14→20:31)
[2019-03-01] MEDS: ALBUT/IPRATROP 3MG/0.5MG NEB 3 ML VIAL NEB SCH ×4 (07:20→19:37)
[2019-03-01] MEDS ORDERED: HEPARIN SOD (PORCINE) 1000 UNIT/ML 10 ML VIAL IV SCH (07:47)
[2019-03-01] MEDS ORDERED: IRON SUCROSE 100 MG in SYRINGE 0 ML IV ONE ×2 (07:47→08:04)
[2019-03-01] MEDS ORDERED: SODIUM CHLORIDE 0.9% 1000ML 1,000 ML IV PRN ×2 (07:47→08:04)
[2019-03-01] MEDS ORDERED: EPOETIN ALFA 20,000 UNITS/ML VIAL IV ONE ×2 (07:47→08:04)
--- NOTE | 2019-03-01 07:57 | Nephrology Consultation ---
Date of Consultation March 01, 2019 Assessment & Plan (1) ESRD (end stage renal disease) on dialysis: pt is traditionally on PD but has functional AVF; will do daily HD gentle in interest of optimizing volume and not having him tied up on cycler in case urgent procedure needed. he was on hd in the past but did not tolerate d/t travel time and labile blood pressures on tx; plan to return to pd -for HD today; plan tentatively tomorrow and Sat as well depending on clinical status Present on Admission?: Yes (2) Congestive heart failure: f/u TTE from this AM and cardiology recs; work at optimizing volumes status Present on Admission?: Yes (3) Anemia: aggressive epo, IV iron on dialysis; add t stn to labs this am; no heparin since on gtt Present on Admission?: Yes (4) Pneumonia: on steroids, zosyn; will optimize volume status Present on Admission?: Yes History of Present Illness Reason for Consultation: ESRD on dialysis Requesting Physician: Dr Paulson Attending Physician: Byron Cuba MD History of Present Illness 78 y/o M admitted yesterday w/ acute respiratory failure suspected from aspiration PNA whom I'm asked to see for dialysis needs. PMH incdlues CAD w/ stent 10/2018, ischemic [employer] w/ EF 40% as of last month, ESRD on PD, IDDM, ANI on CPAP, anemia of chronic disease, vertebral kyphoplasty last month after fracture from a fall, depression. His brother is very involved in his care. Pt was sent from [facility] rehab d/t acutely worsened respiratory status late yesterday afternoon. He had N cough and choking yesterday AM at a meal, went and did PT at 1 pm; then by 5 pm was acutely short of breath. The pt is on PD; I have been directing this at [facility]. For each of the past 6 nights prior to admission he has been about 1 L negative. Wts have not been consistently obtained but are generally stable per report. Blood sugars have per brother's report been labile. The patient was admitted to [facility] last month w/ volume overload, acute l umbar vertebral fracture, and volume overload. We did hemodialysis for several days during that admission to optimize his volume status. On presentation here, pt noted to have troponin in teens and trending up as of this am. Cxr showed BL layering pleural effusions and interstitial edema. Cardiology is following; he had TTE today. I saw pt this am on rounds at 0850. Given volume overload and potential need for urgent cardiac procedures, I held PD w/ plan to do HD for a few treatments. Allergies Allergy/AdvReac Type Severity Reaction Status Date / Time No Known Allergies Allergy Verified 02/28/19 19:45 Home Medications Home Medications Medication Instructions Recorded Confirmed Type B complex with C#20-folic acid 1 cap PO DAILY 02/28/19 02/28/19 History [Renal Caps] acetaminophen 650 mg PO Q4H PRN 02/28/19 02/28/19 History aspirin 81 mg PO DAILY 02/28/19 02/28/19 History atorvastatin 40 mg PO DAILY 02/28/19 02/28/19 History bisacodyl 10 mg DC DAILY PRN 02/28/19 02/28/19 History clopidogrel 75 mg PO DAILY 02/28/19 02/28/19 History dextrose [Glucose Gel] 15 g PO DIRECTED PRN 02/28/19 02/28/19 History docusate sodium 100 mg PO BID 02/28/19 02/28/19 History dorzolamide-timolol 1 drp OPB BID 02/28/19 02/28/19 History finasteride 5 mg PO DAILY 02/28/19 02/28/19 History glucagon HCl 1 mg SUBCUT DIRECTED PRN 02/28/19 02/28/19 History heparin (porcine) 5,000 unit SUBCUT Q12H 02/28/19 02/28/19 History insulin aspart U-100 [Novolog 8 unit SUBCUT TIDM 02/28/19 02/28/19 History Flexpen U-100 Insulin] insulin aspart U-100 [Novolog 1 sliding scale dose SUBCUT 02/28/19 02/28/19 History U-100 Insulin aspart] USEASDIRECTD insulin glargine 14 unit SUBCUT DAILY 02/28/19 02/28/19 History latanoprost 1 drp OPB HS 02/28/19 02/28/19 History magnesium hydroxide [Milk Of 30 ml PO DAILY PRN 02/28/19 02/28/19 History Magnesia Concentrated] nitroglycerin 0.4 mg SUBLINGUAL DIRECTED PRN 02/28/19 02/28/19 History nystatin 1 applic TOPICAL BID 02/28/19 02/28/19 History oxycodone-acetaminophen 1 tab PO Q6H PRN 02/28/19 02/28/19 History pantoprazole 40 mg PO QAM 02/28/19 02/28/19 History polyethylene glycol 3350 [Miralax] 17 g PO .Q LUNCH PRN 02/28/19 02/28/19 History polyethylene glycol 3350 [Miralax] 17 g PO DAILY 02/28/19 02/28/19 History sennosides-docusate sodium 1 tab PO .Q LUNCH PRN 02/28/19 02/28/19 History [Senokot-S] sertraline 50 mg PO DAILY 02/28/19 02/28/19 History sevelamer carbonate 1,600 mg PO TIDM 02/28/19 02/28/19 History sodium phosphates [Fleet Enema] 133 ml DC DAILY PRN 02/28/19 02/28/19 History tamsulosin 0.4 mg PO DAILY 02/28/19 02/28/19 History Patient History Medical History Ischemic cardiomyopathy (Chronic) Ischemic heart disease (Chronic) CAD (coronary artery disease) (Chronic) s/p ANNIE to RCA 10/2018 [facility] IDDM (insulin dependent diabetes mellitus) (Chronic) ESRD (end stage renal disease) on dialysis (Chronic) ANI on CPAP (Chronic) HTN (hypertension) (Chronic) Anemia (Chronic) Dialysis patient (Chronic) Surgical History History of kyphoplasty (Chronic) History of lumbar laminectomy (Chronic) History of cardiac cath (Chronic) Family History Other Kidney disease Social History Preferred Language: Sinhala Communication Ability: Effective Hoist Operator Required: No Beliefs That Will Affect Care: None marital status: / Current Living Situation: Family Feels Safe at Home: Yes Safety Concerns: Feels Safe At This Time Smoking Status: Former smoker Second Hand Exposure: No Tobacco Cessation Education Requested by Patient: No Hx Alcohol Use: No Hx Substance Use: No Review of Systems Review of Systems: All systems reviewed & are unremarkable except as noted in HPI & below Constitutional: + fatigue, + malaise and + weakness; no weight gain Eyes: no worsening vision Ear, Nose, Mouth, Throat: no dry mouth Respiratory: as per Subjective / HPI, + cough, + chest congestion, + dyspnea and + dyspnea on exertion Cardiovascular: + dyspnea, + dyspnea on exertion and + orthopnea; no chest pain Gastrointestinal: as per Subjective / HPI, + nausea and + vomiting; no abdominal pain, no change in bowel habits and no constipation Genitourinary: + problem reported (makes minimal urine output daily; no change to chronic voiding habits) Musculoskeletal: + back pain, + stiffness and + body aches Integumentary: no rash and no non-healing lesions Neurologic: + generalized weakness Psychiatric: + depression Endocrine: + fatigue Hematologic / Lymphatic: no easy bleeding Physical Exam Constitutional: well developed, well nourished, + frail appearing and cooperative on RA, frequent cough in exam Eyes: EOM intact bilaterally ENMT: Ears: no external ear abnormality Nose: no external nose abnormality Mouth: + dry oral mucous membranes Neck: no nuchal rigidity Respiratory: normal respiratory effort, + cough and able to speak in complete sentences Auscultation: + diminished lung sounds (chance bl bases) and + crackles Cardiovascular: Rate/Rhythm: regular rate and regular rhythm Extremities: + AV fistula (+ t/b); no edema Gastrointestinal (Abdomen): Inspection/Auscultation: normal bowel sounds Percussion/Palpation: abdomen soft; abdomen nontender PD catheter present Musculoskeletal: Extremities: strength 5/5 throughout Skin: no rashes, warm and dry Neurologic: mojica, fluent speech, no tremor Psychiatric: Orientation: alert and oriented x 3 Affect: + depressed affect Results & Data Vital Signs (Past 12 Hours) Vital Signs Temp Pulse Pulse Resp BP Pulse Ox 03/01/19 07:41 36.8 C 86 20 119/63 96 03/01/19 07:26 85 20 92 03/01/19 06:30 96 03/01/19 04:11 36.6 C 88 20 101/66 99 03/01/19 00:16 96 H 03/01/19 00:03 36.6 C 93 H 19 94/58 L 92 02/28/19 22:39 96 H 36 H 95 02/28/19 22:21 36.9 C 89 23 91/56 L 90 02/28/19 21:15 88 20 84/49 L 93 02/28/19 20:07 90 20 85/53 L 92 Laboratory Results Abnormal lab results 02/28/19 02/28/19 02/28/19 Range/Units 18:00 18:00 18:00 WBC 13.53 H (4.8-10.8) K/uL RBC 2.94 L (4.7-6.1) M/uL Hgb 9.4 L (14.0-18.0) g/dL POC Hgb (14.0-18.0) g/dl Hct 29.2 L (42-52) % POC Hct (42-52) % RDW Std Deviation 63.0 H (36.4-46.3) fL RDW Coeff of Mp 17.4 H (11.5-14.5) % Immature Gran # (Auto) 0.04 H (0.00-0.02) K/uL Neut # (Auto) 11.23 H (1.4-6.5) K/uL Lymph # (Auto) 0.99 L (1.2-3.4) K/uL [place] # (Auto) 1.20 H (0.11-0.59) K/uL APTT (21.0-31.0) Seconds POC Sodium (135-144) mEq/L Sodium 131 L (136-145) mmol/L POC Chloride (101-112) mEq/L Chloride 93 L (98-107) mmol/L POC BUN (7-18) mg/dl BUN 79 H (7-18) mg/dl Creatinine 7.98 H* (0.6-1.4) mg/dl POC Creatinine (0.6-1.3) mg/dl BUN/Creatinine Ratio 9.8 L (10-20) Glucose 225 H (70-99) mg/dl POC Glucose (70-99) POC Glucose (other) (70-99) mg/dl Hemoglobin A1c (4.5-5.6) % Calcium 8.3 L (8.5-10.1) mg/dl POC Ioniz Calcium Jonah (1.12-1.32) mmol/l Magnesium (1.8-2.4) mg/dl AST 41 H (15-37) U/L ALT < 6 L (12-78) U/L Troponin I 6.080 H* (0-0.045) ng/ml Total Protein (6.4-8.2) gm/dl Albumin 2.3 L (3.4-5.0) gm/dl Globulin 4.1 H (2.5-4.0) gm/dl Albumin/Globulin Ratio 0.6 L (0.9-2) Procalcitonin 0.59 H (0-0.5) ng/ml 02/28/19 02/28/19 02/28/19 Range/Units 18:15 20:25 22:05 WBC (4.8-10.8) K/uL RBC (4.7-6.1) M/uL Hgb (14.0-18.0) g/dL POC Hgb 9.9 L (14.0-18.0) g/dl Hct (42-52) % POC Hct 29 L (42-52) % RDW Std Deviation (36.4-46.3) fL RDW Coeff of Mp (11.5-14.5) % Immature Gran # (Auto) (0.00-0.02) K/uL Neut # (Auto) (1.4-6.5) K/uL Lymph # (Auto) (1.2-3.4) K/uL [place] # (Auto) (0.11-0.59) K/uL APTT (21.0-31.0) Seconds POC Sodium 131 L (135-144) mEq/L Sodium (136-145) mmol/L POC Chloride 91 L (101-112) mEq/L Chloride (98-107) mmol/L POC BUN 76 H (7-18) mg/dl BUN (7-18) mg/dl Creatinine (0.6-1.4) mg/dl POC Creatinine 8.2 H* (0.6-1.3) mg/dl BUN/Creatinine Ratio (10-20) Glucose (70-99) mg/dl POC Glucose 202 H 199 H (70-99) POC Glucose (other) 231 H (70-99) mg/dl Hemoglobin A1c (4.5-5.6) % Calcium (8.5-10.1) mg/dl POC Ioniz Calcium Jonah 1.07 L (1.12-1.32) mmol/l Magnesium (1.8-2.4) mg/dl AST (15-37) U/L ALT (12-78) U/L Troponin I (0-0.045) ng/ml Total Protein (6.4-8.2) gm/dl Albumin (3.4-5.0) gm/dl Globulin (2.5-4.0) gm/dl Albumin/Globulin Ratio (0.9-2) Procalcitonin (0-0.5) ng/ml 02/28/19 03/01/19 03/01/19 Range/Units 23:42 01:51 02:04 WBC 11.68 H (4.8-10.8) K/uL RBC 2.60 L (4.7-6.1) M/uL Hgb 8.4 L (14.0-18.0) g/dL POC Hgb (14.0-18.0) g/dl Hct 25.9 L (42-52) % POC Hct (42-52) % RDW Std Deviation 63.9 H (36.4-46.3) fL RDW Coeff of Mp 17.6 H (11.5-14.5) % Immature Gran # (Auto) 0.04 H (0.00-0.02) K/uL Neut # (Auto) 10.58 H (1.4-6.5) K/uL Lymph # (Auto) 0.55 L (1.2-3.4) K/uL [place] # (Auto) (0.11-0.59) K/uL APTT (21.0-31.0) Seconds POC Sodium (135-144) mEq/L Sodium (136-145) mmol/L POC Chloride (101-112) mEq/L Chloride (98-107) mmol/L POC BUN (7-18) mg/dl BUN (7-18) mg/dl Creatinine (0.6-1.4) mg/dl POC Creatinine (0.6-1.3) mg/dl BUN/Creatinine Ratio (10-20) Glucose (70-99) mg/dl POC Glucose 182 H (70-99) POC Glucose (other) (70-99) mg/dl Hemoglobin A1c (4.5-5.6) % Calcium (8.5-10.1) mg/dl POC Ioniz Calcium Jonah (1.12-1.32) mmol/l Magnesium (1.8-2.4) mg/dl AST (15-37) U/L ALT (12-78) U/L Troponin I 11.700 H* (0-0.045) ng/ml Total Protein (6.4-8.2) gm/dl Albumin (3.4-5.0) gm/dl Globulin (2.5-4.0) gm/dl Albumin/Globulin Ratio (0.9-2) Procalcitonin (0-0.5) ng/ml 03/01/19 03/01/19 03/01/19 Range/Units 02:04 02:04 02:04 WBC (4.8-10.8) K/uL RBC (4.7-6.1) M/uL Hgb (14.0-18.0) g/dL POC Hgb (14.0-18.0) g/dl Hct (42-52) % POC Hct (42-52) % RDW Std Deviation (36.4-46.3) fL RDW Coeff of Mp (11.5-14.5) % Immature Gran # (Auto) (0.00-0.02) K/uL Neut # (Auto) (1.4-6.5) K/uL Lymph # (Auto) (1.2-3.4) K/uL [place] # (Auto) (0.11-0.59) K/uL APTT 32.2 H (21.0-31.0) Seconds POC Sodium (135-144) mEq/L Sodium 131 L (136-145) mmol/L POC Chloride (101-112) mEq/L Chloride 94 L (98-107) mmol/L POC BUN (7-18) mg/dl BUN 86 H (7-18) mg/dl Creatinine 8.26 H* (0.6-1.4) mg/dl POC Creatinine (0.6-1.3) mg/dl BUN/Creatinine Ratio (10-20) Glucose 180 H (70-99) mg/dl POC Glucose (70-99) POC Glucose (other) (70-99) mg/dl Hemoglobin A1c 6.5 H (4.5-5.6) % Calcium 8.0 L (8.5-10.1) mg/dl POC Ioniz Calcium Jonah (1.12-1.32) mmol/l Magnesium 3.2 H (1.8-2.4) mg/dl AST 64 H (15-37) U/L ALT 7 L (12-78) U/L Troponin I (0-0.045) ng/ml Total Protein 6.3 L (6.4-8.2) gm/dl Albumin 2.2 L (3.4-5.0) gm/dl Globulin 4.1 H (2.5-4.0) gm/dl Albumin/Globulin Ratio 0.5 L (0.9-2) Procalcitonin (0-0.5) ng/ml 03/01/19 03/01/19 Range/Units 05:42 07:27 WBC (4.8-10.8) K/uL RBC (4.7-6.1) M/uL Hgb (14.0-18.0) g/dL POC Hgb (14.0-18.0) g/dl Hct (42-52) % POC Hct (42-52) % RDW Std Deviation (36.4-46.3) fL RDW Coeff of Mp (11.5-14.5) % Immature Gran # (Auto) (0.00-0.02) K/uL Neut # (Auto) (1.4-6.5) K/uL Lymph # (Auto) (1.2-3.4) K/uL [place] # (Auto) (0.11-0.59) K/uL APTT (21.0-31.0) Seconds POC Sodium (135-144) mEq/L Sodium (136-145) mmol/L POC Chloride (101-112) mEq/L Chloride (98-107) mmol/L POC BUN (7-18) mg/dl BUN (7-18) mg/dl Creatinine (0.6-1.4) mg/dl POC Creatinine (0.6-1.3) mg/dl BUN/Creatinine Ratio (10-20) Glucose (70-99) mg/dl POC Glucose 204 H (70-99) POC Glucose (other) (70-99) mg/dl Hemoglobin A1c (4.5-5.6) % Calcium (8.5-10.1) mg/dl POC Ioniz Calcium Jonah (1.12-1.32) mmol/l Magnesium (1.8-2.4) mg/dl AST (15-37) U/L ALT (12-78) U/L Troponin I 19.200 H* (0-0.045) ng/ml Total Protein (6.4-8.2) gm/dl Albumin (3.4-5.0) gm/dl Globulin (2.5-4.0) gm/dl Albumin/Globulin Ratio (0.9-2) Procalcitonin (0-0.5) ng/ml Diagnostic Findings cxr 1. Cardiomegaly with evidence of congestive failure and interstitial edema. 2. Layering pleural effusions with bibasilar consolidation. This likely represents atelectasis. Cortical clinically for evidence of superimposed pneumonia. (1) Congestive heart failure Heart failure chronicity: unspecified Heart failure type: unspecified Qualified Code(s): I50.9 - Heart failure, unspecified
[2019-03-01] MEDS: ASPIRIN 81 MG ECTAB PO SCH (08:10)
[2019-03-01] MEDS: DOCUSATE SODIUM 100 MG CAP PO SCH ×2 (08:10→20:31)
[2019-03-01] MEDS: PANTOprazole 40 MG TAB PO SCH (08:10)
[2019-03-01] MEDS: INSULIN ASPART 100 UNITS/ML 3 ML PEN SC SCH ×4 (08:10→20:32)
[2019-03-01] MEDS: SERTRALINE HCL 50 MG TABLET PO SCH (08:11)
[2019-03-01] MEDS: NEPHROCAPS PO SCH (08:11)
[2019-03-01] MEDS: DORZOLAMIDE/TIMOLOL 22.3/6.8MG/ML 10 ML BTL OPB SCH ×2 (08:11→20:31)
[2019-03-01] MEDS: SEVELAMER HCL 800 MG TABLET PO SCH ×3 (08:11→17:00)
[2019-03-01] MEDS: CLOPIDOGREL BISULFATE 75 MG TAB PO SCH (08:11)
[2019-03-01] MEDS: ATORVASTATIN 40 MG TAB PO SCH (08:11)
--- NOTE | 2019-03-01 08:51 | Pharmacy Report ---
Glycemic Control Consultation - Date of Service March 01, 2019 - Scope Scope: Glycemic Pharmacist consulted by Brigette Butcher PA-C on 02/28/19 for glycemic control and to write orders per [facility] inpatient glycemic control protocol - Objective Weight: 93.4 kg Accuchecks BSG (last 24hrs): 02/28/19 02/28/19 02/28/19 18:00 18:15 20:25 Glucose 225 H POC Glucose 202 H POC Glucose (other) 231 H 02/28/19 03/01/19 03/01/19 22:05 01:51 02:04 Glucose 180 H POC Glucose 199 H 182 H POC Glucose (other) 03/01/19 07:27 Glucose POC Glucose 204 H POC Glucose (other) Laboratory Data (last 24hrs): 02/28/19 03/01/19 18:00 02:04 Potassium 4.1 4.5 Carbon Dioxide 28 28 Anion Gap 10.0 9.0 Creatinine 7.98 H* 8.26 H* Est Cr Clr Drug Dosing 10.0 9.1 HbA1c: Hemoglobin A1c 6.5 % (4.5-5.6) H 03/01/19 02:04 - Recent Pertinent Medications Outpatient Anti-diabetic Regimen: * Novolog 8 units TID with meals + Sliding scale 0-12 units * Lantus 14 units Daily * A1c = 6.5 % 03/01/19 Risk Factors for Insulin Resistance: * Steroids: Solu-medrol 40mg IV Q8H * Infection: Sepsis, aspiration pneumonitis, IV Rocephin and Flagyl * Diet: Type 2 DM - Assessment & Plan Assessment & Plan: ASSESSMENT: * 78 year old male admitted with sepsis, aspiration pneumonitis, on broad spectrum IV Antibiotics, avoiding QT prolonging agents, ESRD, CHF, CAD. * Type 2 diabetic on Novolog and Lantus at home, started last evening on admission, blood sugars above goal, will use higher doses at this time for IV steroids ATC. * Elevated troponin this morning, NPO this morning until cardiology sees patient. PLAN FOR INPATIENT GLYCEMIC CONTROL: * Basal insulin * Lantus 15 units SQ x 1 last night * Lantus 20 units daily starting today * Bolus insulin * NovoLog per scale ACHS or Q6hrs while NPO * Goal Range: Low 110 mg/dL - High 140 mg/dL * Correction Factor: 15 mg/dL/unit (tighten from 25mg/dL/unit started last night) * Nutritional / Prandial insulin per carb ratio of 1 unit per 5 grams CHO consumed (tightened from 8 started last night) * Please note that the plan above was derived based on current level of insulin resistance and hospital stress. These recommendations are appropriate for inpatient admission only. Plan of care upon discharge will need to be reassessed to avoid potential outpatient hypo/hyperglycemia. Thank you.
[2019-03-01] MEDS ORDERED: INSULIN GLARGINE SOLOSTAR 100 UNITS/ML 3 ML PEN SC SCH ×2 (09:00)
[2019-03-01 09:17] LABS: Partial Thromboplastin Ratio > 5.1
[2019-03-01 09:19] LABS: Partial Thromboplastin Time > 139.0 Seconds (21.0-31.0)
[2019-03-01 09:24] LABS: Iron 28 mcg/dl (35-175); Transferrin 136 mg/dl (200-360); Transferrin Percent Saturation 15 % (20-50)
[2019-03-01] MEDS ORDERED: CONSULT PHARMACY STA (09:36)
--- NOTE | 2019-03-01 09:38 | Cardiology Consultation ---
Date of Consultation March 01, 2019 Assessment & Plan (1) Non-ST elevation (NSTEMI) myocardial infarction: (2) Acute on chronic systolic and diastolic heart failure, NYHA class 4: (3) Ischemic cardiomyopathy: (4) CAD (coronary artery disease): (5) Pneumonia: (6) ESRD (end stage renal disease) on dialysis: (7) Hypotension: 78-year-old patient admitted with nausea and hypoxia. Ultimately diagnosed with acute decompensated systolic heart failure, pneumonia, and elevated troponin suggestive of NSTEMI. Volume status typically managed by peritoneal dialysis however scheduled for hemodialysis today to remove fluid. Await nephrology input however, consider transitioning to permanent hemodialysis to improve volume management. Elevated troponin may represent significant demand ischemia event in the setting of known fix coronary disease as described above in the setting of pneumonia and acute decompensated systolic heart failure. Plaque rupture event is possible however, there are no new regional wall motion abnormalities on echocardiogram which demonstrates posterior inferior severe hypokinesis to akinesis as documented on previous echocardiograms. Agree with treatment with intravenous heparin at this time. Currently, no indication for urgent cardiac catheterization as patient is asymptomatic. Recommend optimization volume status with hemodialysis and continue treatment with intravenous antibiotics at this time. Add low-dose beta-alexandria therapy, Toprol XL 12.5 mg daily as blood pressure allows. Continue aspirin, Plavix, and statin therapy as previously ordered. 45 minutes critical care time spent formulating plan of care, reviewing data and studies, discussion of plan of care with consultants, as well as reviewing plan of care with family member at bedside. History of Present Illness Reason for Consultation: Elevated troponin, congestive heart failure Requesting Physician: Dr. Byron Cuba Attending Physician: Byron Cuba MD History of Present Illness 78-year-old patient presented to the emergency department with nausea and a feeling of unwellness. Noted to be hypoxic in the ER. No chest pain reported. X-ray demonstrates congestive heart failure with bibasilar consolidations. Patient coughing with scant sputum production. Approximately 7 pound weight gain noted. Carries a history of chronic complex cardiovascular disease including multivessel coronary disease status post RCA intervention October 2018. During catheterization chronic proximal left circumflex occlusion filling via left to left collaterals as well as 70% PDA stenosis noted. The PDA was not treated with percutaneous intervention due to small caliber of the vessel. Patient treated with intravenous Lasix, IV heparin, and antibiotic therapy overnight. Currently resting comfortably. No dysrhythmias on telemetry. Brother, who is his primary engine installer, present at bedside. Patient denies any chest pain. Brother notes patient denied any chest pain at the time of myocardial infarction October 2018. EKGs demonstrate lateral ST-T wave abnormality which is chronic. 2D transthoracic echocardiogram demonstrates inferior posterior wall motion abnormality with severely reduced LV function. The inferior posterior wall motion abnormality is present on echocardiograms dating back to October 2018. Patient denies fever, chills, or sick contacts. He is a resident of [facility]. Brother typically manages his peritoneal dialysis watches his weight and edema closely. Patient denies orthopnea, paroxysmal nocturnal dyspnea, or worsening edema. In general his fluid accumulation tends to occur in his mid abdominal region. Allergies Allergy/AdvReac Type Severity Reaction Status Date / Time No Known Allergies Allergy Verified 02/28/19 19:45 Home Medications Home Medications Medication Instructions Recorded Confirmed Type B complex with C#20-folic acid 1 cap PO DAILY 02/28/19 02/28/19 History [Renal Caps] acetaminophen 650 mg PO Q4H PRN 02/28/19 02/28/19 History aspirin 81 mg PO DAILY 02/28/19 02/28/19 History atorvastatin 40 mg PO DAILY 02/28/19 02/28/19 History bisacodyl 10 mg MO DAILY PRN 02/28/19 02/28/19 History clopidogrel 75 mg PO DAILY 02/28/19 02/28/19 History dextrose [Glucose Gel] 15 g PO DIRECTED PRN 02/28/19 02/28/19 History docusate sodium 100 mg PO BID 02/28/19 02/28/19 History dorzolamide-timolol 1 drp OPB BID 02/28/19 02/28/19 History finasteride 5 mg PO DAILY 02/28/19 02/28/19 History glucagon HCl 1 mg SUBCUT DIRECTED PRN 02/28/19 02/28/19 History heparin (porcine) 5,000 unit SUBCUT Q12H 02/28/19 02/28/19 History insulin aspart U-100 [Novolog 8 unit SUBCUT TIDM 02/28/19 02/28/19 History Flexpen U-100 Insulin] insulin aspart U-100 [Novolog 1 sliding scale dose SUBCUT 02/28/19 02/28/19 History U-100 Insulin aspart] USEASDIRECTD insulin glargine 14 unit SUBCUT DAILY 02/28/19 02/28/19 History latanoprost 1 drp OPB HS 02/28/19 02/28/19 History magnesium hydroxide [Milk Of 30 ml PO DAILY PRN 02/28/19 02/28/19 History Magnesia Concentrated] nitroglycerin 0.4 mg SUBLINGUAL DIRECTED PRN 02/28/19 02/28/19 History nystatin 1 applic TOPICAL BID 02/28/19 02/28/19 History oxycodone-acetaminophen 1 tab PO Q6H PRN 02/28/19 02/28/19 History pantoprazole 40 mg PO QAM 02/28/19 02/28/19 History polyethylene glycol 3350 [Miralax] 17 g PO .Q LUNCH PRN 02/28/19 02/28/19 History polyethylene glycol 3350 [Miralax] 17 g PO DAILY 02/28/19 02/28/19 History sennosides-docusate sodium 1 tab PO .Q LUNCH PRN 02/28/19 02/28/19 History [Senokot-S] sertraline 50 mg PO DAILY 02/28/19 02/28/19 History sevelamer carbonate 1,600 mg PO TIDM 02/28/19 02/28/19 History sodium phosphates [Fleet Enema] 133 ml MO DAILY PRN 02/28/19 02/28/19 History tamsulosin 0.4 mg PO DAILY 02/28/19 02/28/19 History Patient History Medical History Ischemic cardiomyopathy (Chronic) Ischemic heart disease (Chronic) CAD (coronary artery disease) (Chronic) s/p ANNIE to RCA 10/2018 [facility] IDDM (insulin dependent diabetes mellitus) (Chronic) ESRD (end stage renal disease) on dialysis (Chronic) ANI on CPAP (Chronic) HTN (hypertension) (Chronic) Anemia (Chronic) Dialysis patient (Chronic) Surgical History History of kyphoplasty (Chronic) History of lumbar laminectomy (Chronic) History of cardiac cath (Chronic) Family History Other Kidney disease Social History Preferred Language: French Communication Ability: Effective Business Attorney Required: No Beliefs That Will Affect Care: None marital status: / Current Living Situation: Family Feels Safe at Home: Yes Safety Concerns: Feels Safe At This Time Smoking Status: Former smoker Second Hand Exposure: No Tobacco Cessation Education Requested by Patient: No Hx Alcohol Use: No Hx Substance Use: No Review of Systems Review of Systems: All systems reviewed & are unremarkable except as noted in HPI & below Physical Exam Physical Exam: General: NAD, AAO x3, chronically ill. HEENT: Normocephalic. Atraumatic. Conjunctiva pink, no scleral icterus. Neck: No carotid bruits, the carotid upstrokes are brisk. No JVD. No HJR Heart: Regular normal S-1 and S-2 no S-3 or S-4 gallop. 2/6 mid peaking systolic ejection murmur heard best at the right second intercostal space. PMI is not displaced. No RV heave. Lungs: Diminished breath sounds at the bases bilaterally. Crackles noted at the left base and mid lung sykes. Scattered rhonchi. Abdomen: Mild distention, no tenderness or guarding. Normal bowel sounds. No masses or organomegaly. No abdominal bruits. Extremities: Left upper extremity fistula with palpable thrill. No clubbing, cyanosis, or edema. Pulses: Diminished femoral pulses bilaterally. Radial=1/4 on right. Neuro: Cranial nerves grossly intact. No focal motor deficit. Results & Data Vital Signs (Past 12 Hours) Vital Signs Temp Pulse Pulse Resp BP Pulse Ox 03/01/19 07:41 36.8 C 86 20 119/63 96 03/01/19 07:26 85 20 92 03/01/19 06:30 96 03/01/19 04:11 36.6 C 88 20 101/66 99 03/01/19 00:16 96 H 03/01/19 00:03 36.6 C 93 H 19 94/58 L 92 02/28/19 22:39 96 H 36 H 95 02/28/19 22:21 36.9 C 89 23 91/56 L 90
[2019-03-01] MEDS ORDERED: PIPERACILL/TAZOBAC CONSULT ACTIVE PRN (10:00)
[2019-03-01] MEDS ORDERED: PIPERACILLIN/TAZOBACTAM 3.375 GM in DEXTROSE 5% 100 ML IV ONE (10:15)
[2019-03-01 10:56] LABS: Partial Thromboplastin Ratio > 5.1
[2019-03-01 10:59] LABS: Partial Thromboplastin Time > 139.0 Seconds (21.0-31.0)
[2019-03-01] MEDS: HEPARIN SOD (PORCINE) 1000 UNIT/ML 10 ML VIAL IV SCH ×2 (11:58→11:59)
[2019-03-01 13:01] LABS: Partial Thromboplastin Ratio > 5.1
[2019-03-01 13:04] LABS: Partial Thromboplastin Time > 139.0 Seconds (21.0-31.0)
[2019-03-01] MEDS: DOXYCYCLINE HYCLATE 100 MG CAP PO SCH ×2 (14:19→20:31)
[2019-03-01] MEDS: METOPROLOL SUCC 25MG EXT REL TAB PO SCH (14:19)
[2019-03-01 15:02] LABS: Partial Thromboplastin Ratio 2.2
--- NOTE | 2019-03-01 15:03 | Communication Note ---
Date of Service: March 01, 2019 Notified by nursing that pt's PTT remains elevated > 139 s , despite having held heparin. Pt did not received additional heparin with hemodialysis. Will continue to hold, and will transition to low dose protocol.
[2019-03-01 15:08] LABS: Partial Thromboplastin Time 59.5 Seconds (21.0-31.0)
[2019-03-01] MEDS ORDERED: Heparin IV Low Dose *NO* Bolus IV SCH (15:30)
[2019-03-01] MEDS: PIPERACILLIN/TAZOBACTAM 4.5 GM in DEXTROSE 5% 100 ML IV SCH (15:56)
[2019-03-01] MEDS: HEPARIN SODIUM/DEXTROSE 25,000 UNITS/500 ML BAG IV SCH (15:56)
[2019-03-01] MEDS ORDERED: PIPERACILLIN/TAZOBACTAM 3.375 GM in DEXTROSE 5% 100 ML IV SCH (16:00)
--- NOTE | 2019-03-01 17:50 | Hospitalist Progress Note ---
Date of Service March 01, 2019 Assessment & Plan (1) Acute on chronic systolic and diastolic heart failure, NYHA class 4: Updated echo ordered Volume management with hemodialysis per wire annealer (2) Pneumonia: With possible sepsis Possible aspiration pneumonia versus healthcare associated pneumonia Sputum culture, blood cultures ordered, follow-up Lactate checked, normal Change antibiotic from ceftriaxone and Flagyl to Zosyn and doxycycline Check nasal MRSA Speech therapist ordered for evaluation of possible dysphasia, aspiration risk (3) Non-ST elevation (NSTEMI) myocardial infarction: Troponin trended up, highest 16,000 Chest pain-free Discussed with maintenance inspector Dr. Valerio In light of ongoing pneumonia, volume overload, will continue medical management at this time Continue heparin drip (4) CAD (coronary artery disease): Patient with known CAD and PCI to RCA with ANNIE 10/2018 On dual antiplatelet therapy with aspirin and Plavix Off coreg and lisinopril due to hypotension Continue high intensity statin last echo 01/2019 revealed slight improvement of EF to 40% with inferior, posterior, septal wall severe hypokinesia Management per above (5) ESRD (end stage renal disease) on dialysis: On peritoneal dialysis Discussed with Dr. Mendoza, for hemodialysis today for volume management (6) IDDM (insulin dependent diabetes mellitus): Last A1c 6.0 on 10/2018 Currently on Lantus 14 units daily along with NovoLog with meals consult glycemic pharmacist for management given addition of steroids, appreciate their input given co morbidities loose control is acceptable to prevent hypoglycemia (7) ANI on CPAP: CPAP at bedtime (8) Anemia: Hemoglobin 8.4 No signs of active bleeding Continue to monitor (9) DVT prophylaxis: SQ Heparin, TEDS, SCDS Disposition: to be determined, case management consulted Follow up: PCP Dr. St upon discharge along with appropriate cardiology and nephrology follow up Subjective Follow-up for shortness of breath, non-ST elevation IA, pneumonia, ESRD Seen sitting up in bed, not in distress but appears weak Awake alert oriented x3 Reports cough productive of thick sputum Denies chest pain, shortness of breath Abdominal pain, nausea vomiting Denies other symptoms Review of Systems Review of Systems: All systems reviewed & are unremarkable except as noted in HPI & below Physical Exam Physical Exam: General- oriented x 3, not in distress, speaks in sentences with no effort or accessory muscle use Eyes- anicteric Neck- no JVD Lungs-decreased breath sounds bilateral bases, occasional rales, no wheezing Heart- normal rate, regular rhythm; no murmurs Abdomen- normal bowel sounds, nondistended, soft, nontender Extremities- no pretibial edema, no calf tenderness Neuro- alert, oriented x 3; no gross focal neurologic deficits Skin- warm & dry Results & Data Vital Signs (Past 12 Hours) Vital Signs Temp Pulse Pulse Resp BP BP Pulse Ox 03/01/19 16:00 83 03/01/19 15:54 37.0 C 97 H 19 97/63 L 97 03/01/19 15:30 76 18 95 03/01/19 14:45 36.8 C 90 110/70 03/01/19 14:34 90 110/70 03/01/19 14:15 83 104/56 L 03/01/19 14:00 97 H 88/65 L 03/01/19 13:45 97 H 112/74 03/01/19 13:30 87 114/56 L 03/01/19 13:15 85 103/70 03/01/19 13:00 86 117/71 03/01/19 12:45 100 H 121/69 03/01/19 12:30 100 H 121/69 03/01/19 12:15 84 107/67 03/01/19 12:00 36.7 C 83 83 18 118/72 113/59 L 98 03/01/19 11:45 83 120/73 03/01/19 11:30 82 122/72 03/01/19 11:15 98 H 117/72 03/01/19 11:00 83 104/73 03/01/19 10:45 83 114/72 03/01/19 10:34 82 112/68 03/01/19 10:30 36.8 C 84 03/01/19 10:00 36.9 C 84 18 102/57 L 96 03/01/19 07:41 36.8 C 86 20 119/63 96 03/01/19 07:26 85 20 92 03/01/19 06:30 96
[2019-03-01] MEDS: LATANOPROST 0.005% OP SOLN 2.5 ML BTL OPB SCH (20:31)
[2019-03-01] MEDS ORDERED: COUGH DROP (SUGAR FREE) LOZ 24 LOZ/1 BOX BUCCAL PRN (21:18)
[2019-03-01 22:56] LABS: Partial Thromboplastin Ratio 1.6; Partial Thromboplastin Time 44.7 Seconds (21.0-31.0)
[2019-03-01] MEDS ORDERED: HEPARIN IV BOLUS 3,000 UNITS in SYRINGE 0 ML IV ONE (23:15)
[2019-03-02] MEDS: PIPERACILLIN/TAZOBACTAM 4.5 GM in DEXTROSE 5% 100 ML IV SCH ×2 (03:30→20:35)
[2019-03-02] MEDS: methylPREDNISolone 40 MG in SYRINGE 0 ML IV SCH ×3 (04:55→20:35)
[2019-03-02 06:15] LABS: Partial Thromboplastin Ratio 4.6
[2019-03-02 06:17] LABS: Partial Thromboplastin Time 124.3 Seconds (21.0-31.0)
[2019-03-02] MEDS: ALBUT/IPRATROP 3MG/0.5MG NEB 3 ML VIAL NEB SCH ×4 (07:00→20:14)
[2019-03-02] MEDS ORDERED: SODIUM CHLORIDE 0.9% 1000ML 1,000 ML IV PRN (07:54)
[2019-03-02] MEDS ORDERED: IRON SUCROSE 100 MG in SYRINGE 0 ML IV ONE (07:54)
[2019-03-02] MEDS ORDERED: EPOETIN ALFA 20,000 UNITS/ML VIAL IV ONE (07:54)
[2019-03-02] MEDS: PANTOprazole 40 MG TAB PO SCH (07:59)
[2019-03-02] MEDS: ATORVASTATIN 40 MG TAB PO SCH (07:59)
[2019-03-02] MEDS: SEVELAMER HCL 800 MG TABLET PO SCH ×3 (07:59→16:58)
[2019-03-02] MEDS: DOXYCYCLINE HYCLATE 100 MG CAP PO SCH ×2 (08:00→20:36)
[2019-03-02] MEDS: SERTRALINE HCL 50 MG TABLET PO SCH (08:00)
[2019-03-02] MEDS: ASPIRIN 81 MG ECTAB PO SCH (08:00)
[2019-03-02] MEDS: CLOPIDOGREL BISULFATE 75 MG TAB PO SCH (08:00)
[2019-03-02] MEDS: NEPHROCAPS PO SCH (08:00)
[2019-03-02] MEDS: DORZOLAMIDE/TIMOLOL 22.3/6.8MG/ML 10 ML BTL OPB SCH ×2 (08:09→20:36)
[2019-03-02] MEDS: INSULIN ASPART 100 UNITS/ML 3 ML PEN SC SCH ×4 (08:09→21:31)
[2019-03-02] MEDS ORDERED: INSULIN GLARGINE SOLOSTAR 100 UNITS/ML 3 ML PEN SC SCH (09:00)
[2019-03-02] MEDS: METOPROLOL SUCC 25MG EXT REL TAB PO SCH (09:32)
[2019-03-02] MEDS: DOCUSATE SODIUM 100 MG CAP PO SCH ×2 (09:32→20:36)
--- NOTE | 2019-03-02 09:39 | Cardiology Progress Note ---
Date of Service March 02, 2019 Assessment & Plan (1) Non-ST elevation (NSTEMI) myocardial infarction: (2) Acute on chronic systolic and diastolic heart failure, NYHA class 4: (3) Ischemic cardiomyopathy: (4) CAD (coronary artery disease): (5) Pneumonia: (6) ESRD (end stage renal disease) on dialysis: (7) Hypotension: 78-year-old patient admitted with nausea and hypoxia. Ultimately diagnosed with acute decompensated systolic heart failure, pneumonia, and elevated troponin suggestive of NSTEMI. Volume status improving with hemodialysis treatment. Weight is down 2 kg overnight. Respiratory status improved. Hypoxia has resolved. O2 saturations within normal limits on room air. Patient scheduled for repeat hemodialysis treatment today without heparin boluses due to labile APTT is noted. Continue low-dose Toprol-XL, aspirin Plavix in addition to IV heparin infusion. Invasive strategy versus conservative medical management discussed with patient and family at bedside. We will continue conservative medical management at this time. Cardiology will continue to follow during hospitalization. Will titrate metoprolol as tolerated. Antibiotics per internal medicine. Subjective Patient seen and examined at the bedside. Feeling better from a cardiovascular perspective. Notes sore throat overnight. Cough with minimal sputum production noted. No chest discomfort. Troponin trending down to 8.9 this morning. Re peat ECG pending. No chest discomfort or heaviness. No dysrhythmias on telemetry. Brother is present at bedside. Offers no additional concerns/complaints. Nursing reports labile APTT levels. Transition to low dose heparin protocol yesterday afternoon. Patient is scheduled for dialysis today without heparin boluses. Review of Systems Review of Systems: All systems reviewed & are unremarkable except as noted in HPI & below Physical Exam Physical Exam: General: NAD, AAO x3, chronically ill. HEENT: Normocephalic. Atraumatic. Conjunctiva pink, no scleral icterus. Neck: No carotid bruits, the carotid upstrokes are brisk. No JVD. No HJR Heart: Regular normal S-1 and S-2 no S-3 or S-4 gallop. 2/6 mid peaking systolic ejection murmur heard best at the right second intercostal space. PMI is not displaced. No RV heave. Lungs: Diminished breath sounds at the bases bilaterally. Crackles noted at the left base and mid lung sykes. Scattered rhonchi. Abdomen: Mild distention, no tenderness or guarding. Normal bowel sounds. No masses or organomegaly. No abdominal bruits. Extremities: Left upper extremity fistula with palpable thrill. No clubbing, cyanosis, or edema. Pulses: Diminished femoral pulses bilaterally. Radial=1/4 on right. Femoral pulse: 1/4 on right, 3/4 on the left. Neuro: Cranial nerves grossly intact. No focal motor deficit. Results & Data Vital Signs (Past 12 Hours) Vital Signs Temp Pulse Pulse Resp BP Pulse Ox 03/02/19 08:05 36.5 C 90 18 117/72 94 03/02/19 07:04 88 16 96 03/02/19 03:31 36.8 C 88 16 118/76 92 03/01/19 23:24 36.8 C 90 16 123/67 98 03/01/19 22:23 87 16 96 Laboratory Results Laboratory Results - last 24 hr 03/01/19 03/01/19 03/01/19 10:22 10:30 11:24 APTT > 139.0 H* PTT Ratio > 5.1 POC Glucose 133 H Troponin I Nasal Screen MRSA (PCR) Negative 03/01/19 03/01/19 03/01/19 12:34 14:29 19:18 APTT > 139.0 H* 59.5 H* PTT Ratio > 5.1 2.2 POC Glucose 170 H Troponin I Nasal Screen MRSA (PCR) 03/01/19 03/01/19 03/02/19 20:26 22:37 05:30 APTT 44.7 H 124.3 H* PTT Ratio 1.6 4.6 POC Glucose 156 H Troponin I Nasal Screen MRSA (PCR) 03/02/19 03/02/19 05:31 07:29 APTT PTT Ratio POC Glucose 177 H Troponin I 8.560 H* Nasal Screen MRSA (PCR)
[2019-03-02] MEDS ORDERED: INSULIN GLARGINE SOLOSTAR 100 UNITS/ML 3 ML PEN SC STA (12:07)
--- NOTE | 2019-03-02 13:05 | Pharmacy Report ---
Pharmacy Glycemic Short Note 2 - Date of Service March 02, 2019 - Glycemic Short BSG Results (Last 24 hours): 03/01/19 03/01/19 03/02/19 19:18 20:26 07:29 POC Glucose 170 H 156 H 177 H 03/02/19 11:24 POC Glucose 205 H Outpatient Anti-diabetic Regimen: * Novolog 8 units TID with meals + Sliding scale 0-12 units * Lantus 14 units Daily * A1c = 6.5 % 03/01/19 Risk Factors for Insulin Resistance: * Steroids: Solu-medrol 40mg IV Q8H * Infection: Sepsis 2nd aspiration pneumonitis - on Zosyn and doxycycline * Diet: T2DM ASSESSMENT: * 78 yo M with hx IDDM, ESRD admitted with sepsis 2nd aspiration pneumonitis. He utilizes peritoneal dialysis as an outpatient but has been transitioned to HD as inpatient, last session x4 hours on 03/01 with anticipated daily schedule for now per nephrology * BSG's ranged 133-204 mg/dL yesterday. * CHO ratio was tightened yesterday AM, but patient did not consume significant CHO yesterday. 30 g CHO consumed at breakfast today with slight increase in BSG noted from 177 to 205 mg/dL. Hesitant to tighten further as parameters are already tighter than weight-based severe stress estimate and this is the only CHO coverage the patient has thus far received. * Will increase Lantus dose slightly 2nd fasting BSG of 177 mg/dL this AM. Patient received a total of 29 units yesterday with minimal po intake. Will therefore increase Lantus to a total of 30 units today (as 20+10 units). Will give additional 5 units tonight for persistent BSG >180 mg/dL IN THE ABSCENCE OF STEROID TAPER * Patient will require a significant adjustment of his glycemic regimen if/when steroids are tapered. PLAN FOR INPATIENT GLYCEMIC CONTROL: * Basal insulin: Lantus * 20 units x1 this AM * Additional 10 units x1 at lunch * 5 units tonight if BSG >180 mg/dL AND steroids have not been tapered * Ongoing Lantus tomorrow not currently ordered to allow for assessment of steroid taper * Bolus insulin * NovoLog per scale ACHS or Q6hrs while NPO * Goal Range: Low 110 mg/dL - High 140 mg/dL * Correction Factor: 15 mg/dL/unit * Nutritional / Prandial insulin per carb ratio of 1 unit per 5 grams CHO co nsumed
[2019-03-02] MEDS: HEPARIN SODIUM/DEXTROSE 25,000 UNITS/500 ML BAG IV SCH (13:09)
--- NOTE | 2019-03-02 13:14 | Fluoroscopy Report ---
MODIFIED BARIUM SWALLOW CLINICAL HISTORY: assess for aspiration COMPARISON STUDY: None. FLUOROSCOPY TIME: 2.5 minutes. TECHNIQUE: A modified barium swallow was performed in conjunction with Speech Pathology. The patient ingested varying consistencies of barium containing material. Video fluoroscopy was performed. FINDINGS: Penetration was noted with thin liquids by spoon. There were multiple episodes of tracheal aspiration with swallows of thin liquids. There was no aspiration with nectar thick liquids, pudding or crackers with paste. Moderate to severe esophageal dysmotility was noted. The esophagus is subopti debra assessed utilizing this technique. IMPRESSION: 1. Several episodes of tracheal aspiration with swallows of thin liquids. No aspiration with the rafaela gustavo of the consistencies. 2. Moderate to severe esophageal dysmotility. 3. Full recommendations by speech pathology to follow. Electronically signed by: Brian Daniels M.D. 03/02/2019 1:13 PM
[2019-03-02 13:45] LABS: Partial Thromboplastin Ratio 1.7
[2019-03-02 13:47] LABS: Partial Thromboplastin Time 46.8 Seconds (21.0-31.0)
[2019-03-02] MEDS: NYSTATIN SUSP 500,000 U/5 ML UDC PO SCH ×2 (16:57→20:35)
--- NOTE | 2019-03-02 17:38 | Hospitalist Progress Note ---
Date of Service March 02, 2019 Assessment & Plan (1) Acute on chronic systolic and diastolic heart failure, NYHA class 4: Updated echo, noted Improved today For hemodialysis again today Volume management with hemodialysis per manufacturing recruiter (2) Pneumonia: With possible sepsis Possible aspiration pneumonia versus healthcare associated pneumonia Sputum culture, blood cultures ordered, pending results Next nasal MRSA: Negative Lactate checked, normal Changed antibiotic from ceftriaxone and Flagyl to Zosyn and doxycycline day 2 Afebrile, breath sounds improving Speech therapist ordered for evaluation of failure, aspiration risk VFSS performed today: Positive for aspiration of thin liquids, silent Recommending slippery diet, thin liquids with chin tuck Patient therapist will be monitoring patient over the weekend We need to transition to Thick if patient does not tolerate thin liquids in the coming days (3) Non-ST elevation (NSTEMI) myocardial infarction: Troponin trended up, highest 16,000 Randy chest pain-free Discussed with developer architect Dr. Valerio In light of ongoing pneumonia, volume overload, will continue medical management at this time Continue heparin drip (4) CAD (coronary artery disease): Patient with known CAD and PCI to RCA with ANNIE 10/2018 On dual antiplatelet therapy with aspirin and Plavix Off coreg and lisinopril due to hypotension Continue high intensity statin last echo 01/2019 revealed slight improvement of EF to 40% with inferior, posterior, septal wall severe hypokinesia Management per above (5) ESRD (end stage renal disease) on dialysis: On peritoneal dialysis Discussed with Dr. Mendoza, for hemodialysis today for volume management (6) IDDM (insulin dependent diabetes mellitus): Last A1c 6.0 on 10/2018 Currently on Lantus 14 units daily along with NovoLog with meals consult glycemic pharmacist for management given addition of steroids, appreciate their input given co morbidities loose control is acceptable to prevent hypoglycemia (7) ANI on CPAP: CPAP at bedtime (8) Anemia: Hemoglobin 8.4 No signs of active bleeding Continue to monitor (9) DVT prophylaxis: SQ Heparin, TEDS, SCDS Disposition: to be determined, case management consulted Follow up: PCP Dr. St upon discharge along with appropriate cardiology and nephrology follow up Subjective Follow-up for acute CHF exacerbation, pneumonia Seen resting in bed, comfortable, not in distress States he feels improved compared to yesterday Shortness of breath, still has cough, productive of white phlegm Denies chills, chest pain, dizziness, palpitations Patient said he tolerated diet today No other symptoms Review of Systems Review of Systems: All systems reviewed & are unremarkable except as noted in HPI & below Physical Exam Physical Exam: General- oriented x 3, not in distress, speaks in sentences with no effort or accessory muscle use Eyes- anicteric Neck- no JVD Lungs-positive rales at the bases, improved air entry compared to yesterday, no wheezing Heart- normal rate, regular rhythm; no murmurs Abdomen- normal bowel sounds, nondistended, soft, nontender Extremities- no pretibial edema, no calf tenderness Neuro- alert, oriented x 3; no gross focal neurologic deficits Skin- warm & dry Results & Data Vital Signs (Past 12 Hours) Vital Signs Temp Pulse Pulse Pulse Resp BP BP 03/02/19 17:20 81 197/89 H 03/02/19 17:00 79 194/78 H 03/02/19 16:42 80 193/90 H 03/02/19 16:20 74 178/87 H 03/02/19 16:00 80 193/84 H 03/02/19 15:40 80 152/108 H 03/02/19 15:20 81 164/114 H 03/02/19 15:11 37.1 C 65 65 139/91 03/02/19 14:53 81 16 03/02/19 11:39 37.3 C 84 18 107/65 03/02/19 11:08 83 16 03/02/19 08:05 36.5 C 90 18 117/72 03/02/19 07:04 88 16 Pulse Ox 03/02/19 17:20 03/02/19 17:00 03/02/19 16:42 03/02/19 16:20 03/02/19 16:00 03/02/19 15:40 03/02/19 15:20 03/02/19 15:11 03/02/19 14:53 99 03/02/19 11:39 98 03/02/19 11:08 100 03/02/19 08:05 94 03/02/19 07:04 96 Laboratory Results Laboratory Results - last 24 hr 03/01/19 03/01/19 03/01/19 19:18 20:26 22:37 APTT 44.7 H PTT Ratio 1.6 POC Glucose 170 H 156 H Troponin I 03/02/19 03/02/19 03/02/19 05:30 05:31 07:29 APTT 124.3 H* PTT Ratio 4.6 POC Glucose 177 H Troponin I 8.560 H* 03/02/19 03/02/19 03/02/19 11:24 13:06 16:52 APTT 46.8 H* PTT Ratio 1.7 POC Glucose 205 H 84 Troponin I
--- NOTE | 2019-03-02 20:30 | Nephrology Progress Note ---
Date of Service March 02, 2019 Assessment & Plan (1) ESRD (end stage renal disease) on dialysis: pt is traditionally on PD but has functional AVF; will do daily HD gentle in interest of optimizing volume and not having him tied up on cycler. challenging case b/c he has had multiple admissions in past w/ symptomatic hypotension on HD; also did not tolerate d/t travel time and labile blood pressures on tx; plan to return to pd after hospital and rehab d/c but for now intensive dialysis. 5.5 L off so far this admission -for HD tmorrow and reassess on 03/04 depending on clinical status -consider CXR 03/[address]usions after aggressive hd (2) Congestive heart failure: carddiology following closely; for conservative mgt; work at optimizing volumes status (3) Anemia: aggressive epo, IV iron on dialysis; t stn 15% this admission; no heparin since on gtt (4) Pneumonia: on steroids, zosyn; will optimize volume status Subjective seen on rounds at 1445; pt resting quietly; feels breathing a bit better, marked fatigue. got 3L fluid off yesterday, 2.5 off today. Review of Systems Review of Systems: All systems reviewed & are unremarkable except as noted in HPI & below Cardiovascular: + edema; no chest pain and no palpitations Gastrointestinal: + early satiety Musculoskeletal: + back pain Physical Exam Constitutional: well developed, well nourished, + frail appearing and cooperative on RA Eyes: EOM intact bilaterally ENMT: Ears: no external ear abnormality Nose: no external nose abnormality Mouth: + dry oral mucous membranes Neck: no nuchal rigidity Respiratory: normal respiratory effort, + cough and able to speak in complete sentences Auscultation: + diminished lung sounds (chance bl bases) and + crackles Cardiovascular: Rate/Rhythm: regular rate and regular rhythm Heart Sounds: + murmur Extremities: + AV fistula (+ t/b); no edema Gastrointestinal (Abdomen): Inspection/Auscultation: normal bowel sounds Percussion/Palpation: abdomen soft; abdomen nontender Musculoskeletal: Extremities: strength 5/5 throughout Skin: no rashes, warm and dry Neurologic: mojica, fluent speech Psychiatric: Orientation: oriented x 3 Affect: + depressed affect Results & Data Vital Signs (Past 12 Hours) Vital Signs Temp Pulse Pulse Pulse Pulse Resp BP 03/02/19 20:16 94 H 20 07/19/19 20:02 37.1 C 93 H 16 03/02/19 19:34 36.7 C 60 03/02/19 19:11 60 134/70 03/02/19 18:20 59 L 118/68 03/02/19 18:00 79 117/68 03/02/19 17:40 74 107/74 03/02/19 17:20 81 197/89 H 03/02/19 17:00 79 194/78 H 03/02/19 16:42 80 193/90 H 03/02/19 16:20 74 178/87 H 03/02/19 16:00 80 193/84 H 03/02/19 15:40 80 152/108 H 03/02/19 15:20 81 164/114 H 03/02/19 15:11 37.1 C 65 65 139/91 03/02/19 14:53 81 16 03/02/19 11:39 37.3 C 84 18 03/02/19 11:08 83 16 BP Pulse Ox 03/02/19 20:16 92 03/02/19 20:02 120/73 100 03/02/19 19:34 134/70 03/02/19 19:11 03/02/19 18:20 03/02/19 18:00 03/02/19 17:40 03/02/19 17:20 03/02/19 17:00 03/02/19 16:42 03/02/19 16:20 03/02/19 16:00 03/02/19 15:40 03/02/19 15:20 03/02/19 15:11 03/02/19 14:53 99 03/02/19 11:39 107/65 98 03/02/19 11:08 100 Laboratory Results Abnormal lab results 03/01/19 03/01/19 03/02/19 Range/Units 20:26 22:37 05:30 APTT 44.7 H 124.3 H* (21.0-31.0) Seconds POC Glucose 156 H (70-99) Troponin I (0-0.045) ng/ml 03/02/19 03/02/19 03/02/19 Range/Units 05:31 07:29 11:24 APTT (21.0-31.0) Seconds POC Glucose 177 H 205 H (70-99) Troponin I 8.560 H* (0-0.045) ng/ml 03/02/19 Range/Units 13:06 APTT 46.8 H* (21.0-31.0) Seconds POC Glucose (70-99) Troponin I (0-0.045) ng/ml (1) Congestive heart failure Heart failure chronicity: unspecified Heart failure type: unspecified Qualified Code(s): I50.9 - Heart failure, unspecified
[2019-03-02] MEDS: LATANOPROST 0.005% OP SOLN 2.5 ML BTL OPB SCH (20:36)
[2019-03-02] MEDS: INSULIN GLARGINE SOLOSTAR 100 UNITS/ML 3 ML PEN SC SCH (21:31)
[2019-03-03] MEDS: PIPERACILLIN/TAZOBACTAM 4.5 GM in DEXTROSE 5% 100 ML IV SCH (04:20)
[2019-03-03 06:01] LABS: Hematocrit (blood only) 25.4 % (42-52); Immature Granulocytes # (auto) 0.02 K/uL (0.00-0.02); Immature Granulocytes % (auto) 0.2 %; Lymphocytes # (auto) 0.98 K/uL (1.2-3.4); Lymphocytes % (auto) 10.2 %; Mean Corpuscular Hgb Conc 31.5 g/dL (32-36); Mean Corpuscular Volume 101.6 fL (80-100); Mean Platelet Volume 9.7 fL (7.4-10.4); Monocytes # (auto) 1.44 K/uL (0.11-0.59); Monocytes % (auto) 14.9 %; Neutrophils # (auto) 7.21 K/uL (1.4-6.5); Neutrophils % (auto) 74.7 %; Nucleated RBC # (auto) 0.06 K/uL (0-0); Nucleated RBC % (auto) 0.6 %; Platelet Count 231 K/uL (130-400); RDW Coefficient of Variation 18.1 % (11.5-14.5); RDW Standard Deviation 67.6 fL (36.4-46.3); White Blood Count 9.65 K/uL (4.8-10.8)
[2019-03-03] MEDS: methylPREDNISolone 40 MG in SYRINGE 0 ML IV SCH ×2 (06:04→14:29)
[2019-03-03 06:44] LABS: BUN Creatinine Ratio 8.2 (10-20); Calcium 7.4 mg/dl (8.5-10.1); Creatinine Clr Calc Pharmacy 17.1 ml/min; Est GFR (African American) 15.6; Est GFR (Non-African American) 13.5; Potassium 3.4 mmol/L (3.5-5.1)
[2019-03-03] MEDS ORDERED: EPOETIN ALFA 20,000 UNITS/ML VIAL IV SCH (07:00)
[2019-03-03] MEDS ORDERED: SODIUM CHLORIDE 0.9% 1000ML 1,000 ML IV PRN (07:00)
[2019-03-03] MEDS ORDERED: IRON SUCROSE 100 MG in SYRINGE 0 ML IV ONE (07:00)
[2019-03-03] MEDS: ALBUT/IPRATROP 3MG/0.5MG NEB 3 ML VIAL NEB SCH ×4 (07:05→19:05)
[2019-03-03 07:46] LABS: Partial Thromboplastin Ratio 1.3; Partial Thromboplastin Time 36.3 Seconds (21.0-31.0)
[2019-03-03] MEDS: SERTRALINE HCL 50 MG TABLET PO SCH (07:52)
[2019-03-03] MEDS: ASPIRIN 81 MG ECTAB PO SCH (07:52)
[2019-03-03] MEDS: NEPHROCAPS PO SCH (07:52)
[2019-03-03] MEDS: PANTOprazole 40 MG TAB PO SCH (07:52)
[2019-03-03] MEDS: DOCUSATE SODIUM 100 MG CAP PO SCH ×2 (07:52→20:30)
[2019-03-03] MEDS: METOPROLOL SUCC 25MG EXT REL TAB PO SCH (07:52)
[2019-03-03] MEDS: SEVELAMER HCL 800 MG TABLET PO SCH ×3 (07:52→16:35)
[2019-03-03] MEDS: DORZOLAMIDE/TIMOLOL 22.3/6.8MG/ML 10 ML BTL OPB SCH ×2 (07:52→20:29)
[2019-03-03 07:53] LABS: BUN Creatinine Ratio 9.3 (10-20); Calcium 8.4 mg/dl (8.5-10.1); Creatinine Clr Calc Pharmacy 16.6 ml/min; Est GFR (African American) 15.1; Potassium 3.8 mmol/L (3.5-5.1)
[2019-03-03] MEDS: NYSTATIN SUSP 500,000 U/5 ML UDC PO SCH ×4 (07:53→20:27)
[2019-03-03] MEDS: INSULIN ASPART 100 UNITS/ML 3 ML PEN SC SCH ×4 (07:53→20:27)
[2019-03-03] MEDS: ATORVASTATIN 40 MG TAB PO SCH (07:53)
[2019-03-03] MEDS: DOXYCYCLINE HYCLATE 100 MG CAP PO SCH ×2 (07:53→20:30)
[2019-03-03] MEDS: CLOPIDOGREL BISULFATE 75 MG TAB PO SCH (07:53)
--- NOTE | 2019-03-03 08:59 | Cardiology Progress Note ---
Date of Service March 03, 2019 Assessment & Plan (1) Non-ST elevation (NSTEMI) myocardial infarction: (2) Acute on chronic systolic and diastolic heart failure, NYHA class 4: (3) Ischemic cardiomyopathy: (4) CAD (coronary artery disease): (5) Pneumonia: (6) ESRD (end stage renal disease) on dialysis: (7) Hypotension: 78-year-old patient admitted with nausea and hypoxia. Ultimately diagnosed with acute decompensated systolic heart failure, pneumonia, and elevated troponin suggestive of NSTEMI. Volume status improving with hemodialysis treatment. Weight is down 6 Kg since admission with hemodialysis. Diagnosed with silent aspiration. Currently followed closely by speech therapy. Respiratory status and hypoxia have improved. Oxygen saturation normal on room air. Increase Toprol-XL to 25 mg daily. Continue aspirin and Plavix. Will continue IV heparin for a total of 48 hours then discontinue. Nursing instructed to not give additional bolus of heparin at this time. Drip will be increased per protocol with repeat aptt as scheduled. Will continue to follow during h ospitalization. Subjective Patient seen and examined at the bedside. Diagnosed with silent aspiration. Prescribed slippery diet and allowed to continue thin liquids for the time being. He may be transition to thick liquids. Patient denies chest pain or palpitations. Shortness of breath improved. No orthopnea, PND, or or lower extremity edema. Tolerating hemodialysis. No other concerns/complaints at this time. Review of Systems Review of Systems: All systems reviewed & are unremarkable except as noted in HPI & below Physical Exam Physical Exam: General: NAD, AAO x3, chronically ill. HEENT: Normocephalic. Atraumatic. Conjunctiva pink, no scleral icterus. Neck: No carotid bruits, the carotid upstrokes are brisk. No JVD. No HJR Heart: Regular normal S-1 and S-2 no S-3 or S-4 gallop. 2/6 mid peaking systolic ejection murmur heard best at the right second intercostal space. PMI is not displaced. No RV heave. Lungs: Diminished breath sounds at the bases bilaterally. Crackles noted at the left base and mid lung sykes. No rhonchi or wheeze. Abdomen: Mild distention, no tenderness or guarding. Normal bowel sounds. No masses or organomegaly. No abdominal bruits. Extremities: Left upper extremity fistula with palpable thrill. No clubbing, cyanosis, or edema. Pulses: Diminished femoral pulses bilaterally. Radial=1/4 on right. Femoral pulse: 1/4 on right, 3/4 on the left. Neuro: Cranial nerves grossly intact. No focal motor deficit. Results & Data Vital Signs (Past 12 Hours) Vital Signs Temp Pulse Pulse Pulse Resp BP Pulse Ox 03/03/19 07:14 90 20 95 03/03/19 06:45 36.6 C 85 18 129/76 97 03/03/19 03:04 37.1 C 78 16 99/58 L 98 03/02/19 23:09 36.6 C 88 16 124/75 100 03/02/19 23:02 87 03/02/19 22:39 85 18 91
[2019-03-03] MEDS ORDERED: INSULIN GLARGINE SOLOSTAR 100 UNITS/ML 3 ML PEN SC SCH (09:00)
[2019-03-03 15:39] LABS: Partial Thromboplastin Ratio 1.9
[2019-03-03 15:42] LABS: Partial Thromboplastin Time 52.4 Seconds (21.0-31.0)
--- NOTE | 2019-03-03 15:59 | Nephrology Progress Note ---
Date of Service March 03, 2019 Assessment & Plan (1) ESRD (end stage renal disease) on dialysis: pt is traditionally on PD but has functional AVF; will do daily HD gentle in interest of optimizing volume and not having him tied up on cycler. challenging case b/c he has had multiple admissions in past w/ symptomatic hypotension on HD; also did not tolerate d/t travel time and labile blood pressures on tx; plan to return to pd after hospital and rehab d/c but for now intensive dialysis. Patient tolerating HD well today. Next HD Tuesday (2) Congestive heart failure: carddiology following closely; for conservative mgt; work at optimizing volumes status (3) Anemia: aggressive epo, IV iron on dialysis; t stn 15% this admission; no heparin since on gtt (4) Pneumonia: on steroids, zosyn; will optimize volume status Subjective ESRD patient seen and examined on dialysis. No SOB or pain. Has PD catheter but now doing HD. Eating well. Review of Systems Review of Systems: All systems reviewed & are unremarkable except as noted in HPI & below Physical Exam Physical Exam: General exam: Appears comfortable, no acute distress HEENT: Pupils are equal and reactive to light Neck: No JVD, neck is supple trachea is midline Respiratory system: Clear breath sounds bilaterally. Gastrointestinal: Abdomen is soft, non distended, non tender, bowel sounds are present. PD catheter present CVS: Regular rate and rhythm. No murmurs, rubs or gallops Musculoskeletal: No joint or muscle tenderness Extremities: Non tender, no edema, peripheral pulses are present Neuro: Oriented, no tremors, no focal neurological deficits Skin: No rashes Access: left UA AVF, good bruit Results & Data Vital Signs (Past 12 Hours) Vital Signs Temp Pulse Pulse Resp BP Pulse Ox 03/03/19 15:00 37.1 C 76 19 112/65 99 03/03/19 07:14 90 20 95 03/03/19 06:45 36.6 C 85 18 129/76 97 Diagnostic Findings Laboratory Results - last 24 hr 03/02/19 03/02/19 03/03/19 16:52 20:26 05:43 WBC 9.65 RBC 2.50 L Hgb 8.0 L Hct 25.4 L MCV 101.6 H MCH 32.0 MCHC 31.5 L RDW Std Deviation 67.6 H RDW Coeff of Mp 18.1 H Plt Count 231 MPV 9.7 Immature Gran % (Auto) 0.2 Neut % (Auto) 74.7 Lymph % (Auto) 10.2 [place] % (Auto) 14.9 Eos % (Auto) 0.0 Baso % (Auto) 0.0 Immature Gran # (Auto) 0.02 Neut # (Auto) 7.21 H Lymph # (Auto) 0.98 L [place] # (Auto) 1.44 H Eos # (Auto) 0.00 Baso # (Auto) 0.00 Absolute Nucleated RBC 0.06 H Nucleated RBC % (auto) 0.6 APTT PTT Ratio Sodium Potassium Chloride Carbon Dioxide Anion Gap BUN Creatinine Est Cr Clr Drug Dosing Est GFR ( Amer) Est GFR (Non-Af Amer) BUN/Creatinine Ratio Glucose POC Glucose 84 112 H Calcium Beta-Hydroxybutyric Acd Specimen Hemolysis 03/03/19 03/03/19 03/03/19 05:43 06:44 07:18 WBC RBC Hgb Hct MCV MCH MCHC RDW Std Deviation RDW Coeff of Mp Plt Count MPV Immature Gran % (Auto) Neut % (Auto) Lymph % (Auto) [place] % (Auto) Eos % (Auto) Baso % (Auto) Immature Gran # (Auto) Neut # (Auto) Lymph # (Auto) [place] # (Auto) Eos # (Auto) Baso # (Auto) Absolute Nucleated RBC Nucleated RBC % (auto) APTT PTT Ratio Sodium 129 L 135 L Potassium 3.4 L 3.8 Chloride 87 L 95 L Carbon Dioxide 28 30 Anion Gap 14.0 H 10.0 BUN 33 H 39 H Creatinine 4.03 H 4.16 H Est Cr Clr Drug Dosing 17.1 16.6 Est GFR ( Amer) 15.6 15.1 Est GFR (Non-Af Amer) 13.5 13.0 BUN/Creatinine Ratio 8.2 L 9.3 L Glucose 425 H* 119 H POC Glucose 117 H Calcium 7.4 L 8.4 L Beta-Hydroxybutyric Acd Specimen Hemolysis 03/03/19 03/03/19 03/03/19 07:18 07:18 07:34 WBC RBC Hgb Hct MCV MCH MCHC RDW Std Deviation RDW Coeff of Mp Plt Count MPV Immature Gran % (Auto) Neut % (Auto) Lymph % (Auto) [place] % (Auto) Eos % (Auto) Baso % (Auto) Immature Gran # (Auto) Neut # (Auto) Lymph # (Auto) [place] # (Auto) Eos # (Auto) Baso # (Auto) Absolute Nucleated RBC Nucleated RBC % (auto) APTT 36.3 H PTT Ratio 1.3 Sodium Potassium Chloride Carbon Dioxide Anion Gap BUN Creatinine Est Cr Clr Drug Dosing Est GFR ( Amer) Est GFR (Non-Af Amer) BUN/Creatinine Ratio Glucose POC Glucose 116 H Calcium Beta-Hydroxybutyric Acd 2.06 Specimen Hemolysis 03/03/19 03/03/19 12:16 15:01 WBC RBC Hgb Hct MCV MCH MCHC RDW Std Deviation RDW Coeff of Mp Plt Count MPV Immature Gran % (Auto) Neut % (Auto) Lymph % (Auto) [place] % (Auto) Eos % (Auto) Baso % (Auto) Immature Gran # (Auto) Neut # (Auto) Lymph # (Auto) [place] # (Auto) Eos # (Auto) Baso # (Auto) Absolute Nucleated RBC Nucleated RBC % (auto) APTT 52.4 H* PTT Ratio 1.9 Sodium Potassium Chloride Carbon Dioxide Anion Gap BUN Creatinine Est Cr Clr Drug Dosing Est GFR ( Amer) Est GFR (Non-Af Amer) BUN/Creatinine Ratio Glucose POC Glucose 117 H Calcium Beta-Hydroxybutyric Acd Specimen Hemolysis (1) Congestive heart failure Heart failure chronicity: unspecified Heart failure type: unspecified Qualified Code(s): I50.9 - Heart failure, unspecified
[2019-03-03] MEDS: HEPARIN SODIUM/DEXTROSE 25,000 UNITS/500 ML BAG IV SCH (16:36)
[2019-03-03] MEDS: PIPERACILLIN/TAZOBACTAM 3.375 GM in DEXTROSE 5% 100 ML IV SCH (16:36)
--- NOTE | 2019-03-03 18:01 | Hospitalist Progress Note ---
Date of Service March 03, 2019 Assessment & Plan (1) Acute on chronic systolic and diastolic heart failure, NYHA class 4: Updated echo, noted improving For hemodialysis again today Volume management with hemodialysis per windlace machine operator (2) Pneumonia: With possible sepsis Possible aspiration pneumonia versus healthcare associated pneumonia Sputum culture, blood cultures ordered, pending results Next nasal MRSA: Negative Lactate checked, normal Changed antibiotic from ceftriaxone and Flagyl to Zosyn and doxycycline day 3 remains afebrile, improving Speech therapist ordered for evaluation of failure, aspiration risk VFSS performed: Positive for aspiration of thin liquids, silent Recommending slippery diet, thin liquids with chin tuck Patient therapist will be monitoring patient over the weekend We need to transition to Thick if patient does not tolerate thin liquids in the coming days (3) Non-ST elevation (NSTEMI) myocardial infarction: Troponin trended up, highest 16,000 Randy chest pain-free Discussed with tool rental technician Dr. Valerio In light of ongoing pneumonia, volume overload, will continue medical management at this time Continue heparin drip (4) CAD (coronary artery disease): Patient with known CAD and PCI to RCA with ANNIE 10/2018 On dual antiplatelet therapy with aspirin and Plavix Off coreg and lisinopril due to hypotension Continue high intensity statin last echo 01/2019 revealed slight improvement of EF to 40% with inferior, posterior, septal wall severe hypokinesia Management per above (5) ESRD (end stage renal disease) on dialysis: On peritoneal dialysis Discussed with Dr. Mendoza, for hemodialysis today for volume management (6) IDDM (insulin dependent diabetes mellitus): Last A1c 6.0 on 10/2018 Currently on Lantus 14 units daily along with NovoLog with meals consult glycemic pharmacist for management given addition of steroids, appr eciate their input given co morbidities loose control is acceptable to prevent hypoglycemia (7) ANI on CPAP: CPAP at bedtime (8) Anemia: Hemoglobin 8.4 No signs of active bleeding Continue to monitor (9) DVT prophylaxis: SQ Heparin, TEDS, SCDS Disposition: to be determined, case management consulted Follow up: PCP Dr. St upon discharge along with appropriate cardiology and nephrology follow up Subjective ff up for CHF, Pneumonia, ESRD seen resting in bed, just completed HD states he feels improved, just tired denies dyspnea, less cough and sputum no chest pain no other symptoms Review of Systems Review of Systems: All systems reviewed & are unremarkable except as noted in HPI & below Physical Exam Physical Exam: General- oriented x 2, not in distress, speaks in sentences with no effort or accessory muscle use Eyes- anicteric Neck- no JVD Lungs- clear BS BL, no wheezing Heart- normal rate, regular rhythm; no murmurs Abdomen- normal bowel sounds, nondistended, soft, nontender Extremities- no pretibial edema, no calf tenderness Neuro- alert, oriented x 3; no gross focal neurologic deficits Skin- warm & dry Results & Data Vital Signs (Past 12 Hours) Vital Signs Temp Pulse Pulse Resp BP Pulse Ox 03/03/19 16:14 79 20 92 03/03/19 15:00 37.1 C 76 19 112/65 99 03/03/19 07:14 90 20 95 03/03/19 06:45 36.6 C 85 18 129/76 97 Laboratory Results Laboratory Results - last 24 hr 03/02/19 03/03/19 03/03/19 20:26 05:43 05:43 WBC 9.65 RBC 2.50 L Hgb 8.0 L Hct 25.4 L MCV 101.6 H MCH 32.0 MCHC 31.5 L RDW Std Deviation 67.6 H RDW Coeff of Mp 18.1 H Plt Count 231 MPV 9.7 Immature Gran % (Auto) 0.2 Neut % (Auto) 74.7 Lymph % (Auto) 10.2 [place] % (Auto) 14.9 Eos % (Auto) 0.0 Baso % (Auto) 0.0 Immature Gran # (Auto) 0.02 Neut # (Auto) 7.21 H Lymph # (Auto) 0.98 L [place] # (Auto) 1.44 H Eos # (Auto) 0.00 Baso # (Auto) 0.00 Absolute Nucleated RBC 0.06 H Nucleated RBC % (auto) 0.6 APTT PTT Ratio Sodium 129 L Potassium 3.4 L Chloride 87 L Carbon Dioxide 28 Anion Gap 14.0 H BUN 33 H Creatinine 4.03 H Est Cr Clr Drug Dosing 17.1 Est GFR ( Amer) 15.6 Est GFR (Non-Af Amer) 13.5 BUN/Creatinine Ratio 8.2 L Glucose 425 H* POC Glucose 112 H Calcium 7.4 L Beta-Hydroxybutyric Acd Specimen Hemolysis 03/03/19 03/03/19 03/03/19 06:44 07:18 07:18 WBC RBC Hgb Hct MCV MCH MCHC RDW Std Deviation RDW Coeff of Mp Plt Count MPV Immature Gran % (Auto) Neut % (Auto) Lymph % (Auto) [place] % (Auto) Eos % (Auto) Baso % (Auto) Immature Gran # (Auto) Neut # (Auto) Lymph # (Auto) [place] # (Auto) Eos # (Auto) Baso # (Auto) Absolute Nucleated RBC Nucleated RBC % (auto) APTT PTT Ratio Sodium 135 L Potassium 3.8 Chloride 95 L Carbon Dioxide 30 Anion Gap 10.0 BUN 39 H Creatinine 4.16 H Est Cr Clr Drug Dosing 16.6 Est GFR ( Amer) 15.1 Est GFR (Non-Af Amer) 13.0 BUN/Creatinine Ratio 9.3 L Glucose 119 H POC Glucose 117 H Calcium 8.4 L Beta-Hydroxybutyric Acd 2.06 Specimen Hemolysis 03/03/19 03/03/19 03/03/19 07:18 07:34 12:16 WBC RBC Hgb Hct MCV MCH MCHC RDW Std Deviation RDW Coeff of Mp Plt Count MPV Immature Gran % (Auto) Neut % (Auto) Lymph % (Auto) [place] % (Auto) Eos % (Auto) Baso % (Auto) Immature Gran # (Auto) Neut # (Auto) Lymph # (Auto) [place] # (Auto) Eos # (Auto) Baso # (Auto) Absolute Nucleated RBC Nucleated RBC % (auto) APTT 36.3 H PTT Ratio 1.3 Sodium Potassium Chloride Carbon Dioxide Anion Gap BUN Creatinine Est Cr Clr Drug Dosing Est GFR ( Amer) Est GFR (Non-Af Amer) BUN/Creatinine Ratio Glucose POC Glucose 116 H 117 H Calcium Beta-Hydroxybutyric Acd Specimen Hemolysis 03/03/19 03/03/19 15:01 16:07 WBC RBC Hgb Hct MCV MCH MCHC RDW Std Deviation RDW Coeff of Mp Plt Count MPV Immature Gran % (Auto) Neut % (Auto) Lymph % (Auto) [place] % (Auto) Eos % (Auto) Baso % (Auto) Immature Gran # (Auto) Neut # (Auto) Lymph # (Auto) [place] # (Auto) Eos # (Auto) Baso # (Auto) Absolute Nucleated RBC Nucleated RBC % (auto) APTT 52.4 H* PTT Ratio 1.9 Sodium Potassium Chloride Carbon Dioxide Anion Gap BUN Creatinine Est Cr Clr Drug Dosing Est GFR ( Amer) Est GFR (Non-Af Amer) BUN/Creatinine Ratio Glucose POC Glucose 121 H Calcium Beta-Hydroxybutyric Acd Specimen Hemolysis
[2019-03-03] MEDS: INSULIN GLARGINE SOLOSTAR 100 UNITS/ML 3 ML PEN SC SCH (20:28)
[2019-03-03] MEDS: LATANOPROST 0.005% OP SOLN 2.5 ML BTL OPB SCH (20:29)
[2019-03-04] MEDS: METOPROLOL SUCC 25MG EXT REL TAB PO SCH ×3 (00:18→20:42)
[2019-03-04] MEDS: PIPERACILLIN/TAZOBACTAM 3.375 GM in DEXTROSE 5% 100 ML IV SCH ×2 (04:13→16:01)
[2019-03-04] MEDS ORDERED: ALBUT/IPRATROP 3MG/0.5MG NEB 3 ML VIAL NEB STA (05:27)
[2019-03-04 06:36] LABS: Basophils # (auto) 0.01 K/uL (0-0.2); Basophils % (auto) 0.1 %; Eosinophils # (auto) 0.01 K/uL (0-0.5); Eosinophils % (auto) 0.1 %; Hematocrit (blood only) 30.7 % (42-52); Hemoglobin 9.9 g/dL (14.0-18.0); Immature Granulocytes # (auto) 0.06 K/uL (0.00-0.02); Immature Granulocytes % (auto) 0.6 %; Lymphocytes # (auto) 1.32 K/uL (1.2-3.4); Lymphocytes % (auto) 13.3 %; Mean Corpuscular Hgb Conc 32.2 g/dL (32-36); Mean Corpuscular Volume 100.7 fL (80-100); Mean Platelet Volume 9.9 fL (7.4-10.4); Monocytes % (auto) 17.1 %; Neutrophils # (auto) 6.84 K/uL (1.4-6.5); Neutrophils % (auto) 68.8 %; Nucleated RBC # (auto) 0.42 K/uL (0-0); Nucleated RBC % (auto) 4.2 %; Platelet Count 267 K/uL (130-400); RDW Coefficient of Variation 18.3 % (11.5-14.5); RDW Standard Deviation 65.6 fL (36.4-46.3); Red Blood Count 3.05 M/uL (4.7-6.1); White Blood Count 9.94 K/uL (4.8-10.8)
[2019-03-04 06:53] LABS: Base Excess ABG 1.5 mEq/L (-9-1.8); HCO3 ABG 24 mmol/L (19-24); Oxygen Saturation ABG 96.1 % (90-95); PCO2 ABG 31 mmHg (35-46); PO2 ABG 82 mm/Hg (80-95)
--- NOTE | 2019-03-04 06:59 | XRay Report ---
XR chest 1V portable CLINICAL HISTORY: sob, cp dyspnea COMPARISON STUDY: 02/28/2019 FINDINGS: Improved exam. Improved aeration both lung bases. Slight decrease in cardiac size. Small re sidual bilateral pleural effusions. IMPRESSION: Improved exam with small residual bilateral pleural effusions. The above report was generated using voice recognition software. It may contain grammatical, syntax or spelling errors. Electronically signed by: Devendra Bishop M.D. 03/04/2019 6:58 AM
[2019-03-04 07:01] LABS: Allen Test Pos (Pos)
[2019-03-04] MEDS: ALBUT/IPRATROP 3MG/0.5MG NEB 3 ML VIAL NEB SCH (07:02)
[2019-03-04 07:03] LABS: pH ABG 7.51 (7.35-7.45)
[2019-03-04 07:05] LABS: Partial Thromboplastin Time 53.1 Seconds (21.0-31.0)
[2019-03-04 07:08] LABS: BUN Creatinine Ratio 8.1 (10-20); Calcium 8.4 mg/dl (8.5-10.1); Creatinine Clr Calc Pharmacy 17.7 ml/min; Est GFR (African American) 16.3; Potassium 3.6 mmol/L (3.5-5.1)
[2019-03-04 07:14] LABS: Anisocytosis Present; Polychromasia 1+
[2019-03-04 07:31] LABS: Troponin I 4.67 ng/ml (0-0.045)
[2019-03-04] MEDS ORDERED: SODIUM CHLORIDE 0.9% 500 ML IV SCH (07:45)
[2019-03-04] MEDS ORDERED: AMIODARONE / D5W 150 MG/100 ML BAG IV STA (07:48)
[2019-03-04] MEDS ORDERED: AMIODARONE IV BOLUS / DRIP IV STA (07:48)
--- NOTE | 2019-03-04 07:54 | Hospitalist Progress Note ---
Date of Service March 04, 2019 Assessment & Plan (1) Acute on chronic systolic and diastolic heart failure, NYHA class 4: Updated echo, noted Euvolemic For hemodialysis tomorrow Volume management with hemodialysis per middle school technology teacher (2) Pneumonia: With possible sepsis Possible aspiration pneumonia versus healthcare associated pneumonia Sputum culture, blood cultures: Negative Next nasal MRSA: Negative Lactate checked, normal Changed antibiotic from ceftriaxone and Flagyl to Zosyn and doxycycline day 4 --> changed to Augmentin, Doxy remains afebrile, improving Speech therapist ordered for evaluation of failure, aspiration risk VFSS performed: Positive for aspiration of thin liquids, silent Recommending slippery diet, thin liquids with chin tuck (3) Non-ST elevation (NSTEMI) myocardial infarction: Troponin trended up, highest 16,000 Randy chest pain-free Discussed with snuff grinder Dr. Valerio In light of ongoing pneumonia, volume overload, and underwent medical management Heparin IV drip, discontinued today March 05, 2019 (4) CAD (coronary artery disease): Patient with known CAD and PCI to RCA with ANNIE 10/2018 On dual antiplatelet therapy with aspirin and Plavix Off coreg and lisinopril due to hypotension Continue high intensity statin last echo 01/2019 revealed slight improvement of EF to 40% with inferior, posterior, septal wall severe hypokinesia Management per above (5) ESRD (end stage renal disease) on dialysis: On peritoneal dialysis Discussed with Dr. Mendoza, for hemodialysis today for volume management (6) IDDM (insulin dependent diabetes mellitus): Last A1c 6.0 on 10/2018 Currently on Lantus 14 units daily along with NovoLog with meals consult glycemic pharmacist for management given addition of steroids, appreciate their input given co morbidities loose control is acceptable to prevent hypoglycemia (7) ANI on CPAP: CPAP at bedtime (8) Anemia: Hemoglobin 9.5 No signs of active bleeding Continue to monitor (9) DVT prophylaxis: TEDS, SCDS Disposition: to be determined, case management consulted Follow up: PCP Dr. St upon discharge along with appropriate cardiology and nephrology follow up Subjective Follow-up for acute CHF, aspiration pneumonia Seen resting in bed, appears weak, but better than yesterday States he feels improved compared to yesterday No shortness of breath, chest pain, palpitations Less coughing, sputum production Tolerated breakfast today No other symptoms Review of Systems Review of Systems: All systems reviewed & are unremarkable except as noted in HPI & below Physical Exam Physical Exam: General- oriented x 3, not in distress, speaks in sentences with no effort or accessory muscle use Eyes- anicteric Neck- no JVD Lungs-very faint rales bilaterally at the bases, no wheezing, good air entry bilaterally Heart- normal rate, regular rhythm; no murmurs Abdomen- normal bowel sounds, nondistended, soft, nontender Extremities-trace pretibial edema, no calf tenderness Neuro- alert, oriented x 3; no gross focal neurologic deficits Skin- warm & dry Results & Data Vital Signs (Past 12 Hours) Vital Signs Temp Pulse Pulse Pulse Resp BP Pulse Ox 03/04/19 07:42 146 H 82/52 L 03/04/19 07:17 36.6 C 113/70 03/04/19 07:02 115 H 20 92 03/04/19 05:37 82 16 95 03/04/19 04:10 36.7 C 81 20 113/70 96 03/03/19 23:14 36.8 C 73 16 113/60 98 03/03/19 23:00 70
--- NOTE | 2019-03-04 07:57 | XRay Report ---
XR chest 1V portable CLINICAL HISTORY: hypoxia dimension COMPARISON STUDY: 5:42 AM 03/04/2019 FINDINGS: Unchanged small bilateral pleural effusions. Mild stable cardiomegaly. IMPRESSION: 1. Small bilateral pleural effusions. Mild stable cardiomegaly. No change from the prior study. The above report was generated using voice recognition software. It may contain grammatical, syntax or spelling errors. Electronically signed by: Devendra Bishop M.D. 03/04/2019 7:54 AM
[2019-03-04] MEDS ORDERED: AMIODARONE / D5W 360 MG/200 ML BAG IV SCH ×3 (08:00→13:48)
[2019-03-04] MEDS: INSULIN ASPART 100 UNITS/ML 3 ML PEN SC SCH ×4 (08:12→20:20)
[2019-03-04] MEDS: SEVELAMER HCL 800 MG TABLET PO SCH ×3 (08:17→16:51)
[2019-03-04] MEDS: PANTOprazole 40 MG TAB PO SCH (08:17)
[2019-03-04] MEDS: DOCUSATE SODIUM 100 MG CAP PO SCH ×2 (08:17→20:44)
[2019-03-04] MEDS: CLOPIDOGREL BISULFATE 75 MG TAB PO SCH (08:18)
[2019-03-04] MEDS: DORZOLAMIDE/TIMOLOL 22.3/6.8MG/ML 10 ML BTL OPB SCH ×2 (08:18→20:44)
[2019-03-04] MEDS: ASPIRIN 81 MG ECTAB PO SCH (08:18)
[2019-03-04] MEDS: NYSTATIN SUSP 500,000 U/5 ML UDC PO SCH ×4 (08:18→20:44)
[2019-03-04] MEDS: NEPHROCAPS PO SCH (08:19)
[2019-03-04] MEDS: SERTRALINE HCL 50 MG TABLET PO SCH (08:19)
[2019-03-04] MEDS: DOXYCYCLINE HYCLATE 100 MG CAP PO SCH ×2 (08:19→20:44)
[2019-03-04] MEDS: ATORVASTATIN 40 MG TAB PO SCH (08:19)
[2019-03-04] MEDS ORDERED: INSULIN GLARGINE SOLOSTAR 100 UNITS/ML 3 ML PEN SC SCH (09:00)
[2019-03-04] MEDS ORDERED: methylPREDNISolone 40 MG in SYRINGE 0 ML IV SCH (09:00)
[2019-03-04] MEDS ORDERED: SODIUM CHLORIDE 0.9% 1000ML 250 ML IV ONE ×2 (09:09→15:57)
--- NOTE | 2019-03-04 10:57 | Nephrology Progress Note ---
Date of Service March 04, 2019 Assessment & Plan (1) ESRD (end stage renal disease) on dialysis: pt is traditionally on PD but has functional AVF; he tolerated HD yesterday. Patient had episode of hypotension and rapid A. fib this morning. They have given about 1.5 L of fluids and on amiodarone drip. Recommend stopping IV fluids as blood pressure has improved. Continue rate control agents. Next dialysis planned for Tuesday (2) Congestive heart failure: Now has rapid A. fib on amiodarone. Cardiology following closely; for conservative mgt; work at optimizing volumes status (3) Anemia: aggressive epo, IV iron on dialysis; t stn 15% this admission; no heparin since on gtt (4) Pneumonia: on steroids, zosyn; will optimize volume status Subjective Patient tolerated HD yesterday. He had an episode of hypotension this morning and rapid A. fib. He is now on amiodarone drip and normal saline bolus. No shortness of breath. He feels better this morning. No palpitations. Blood pressure is now better at 100/62. Heart rate in the 70s Review of Systems Review of Systems: All systems reviewed & are unremarkable except as noted in HPI & below Physical Exam Physical Exam: General exam: Appears comfortable, no acute distress HEENT: Pupils are equal and reactive to light Neck: No JVD, neck is supple trachea is midline Respiratory system: Clear breath sounds bilaterally. Gastrointestinal: Abdomen is soft, non distended, non tender, bowel sounds are present. PD catheter present CVS: Regular rate and rhythm. No murmurs, rubs or gallops Musculoskeletal: No joint or muscle tenderness Extremities: Non tender, no edema, peripheral pulses are present Neuro: Oriented, no tremors, no focal neurological deficits Skin: No rashes Access: AV fistula with good bruit Results & Data Vital Signs (Past 12 Hours) Vital Signs Temp Pulse Pulse Pulse Resp BP BP 03/04/19 10:30 68 20 101/62 03/04/19 10:15 69 19 94/58 L 03/04/19 10:00 65 21 82/50 L 03/04/19 09:45 71 20 86/55 L 03/04/19 09:35 73 22 80/53 L 03/04/19 09:30 71 25 H 77/51 L 03/04/19 09:25 71 22 80/51 L 03/04/19 09:20 71 23 81/50 L 03/04/19 09:15 70 19 79/51 L 03/04/19 09:10 71 23 78/49 L 03/04/19 09:05 70 25 H 75/54 L 03/04/19 09:01 63 19 76/46 L 03/04/19 08:55 72 22 81/49 L 03/04/19 08:50 68 27 H 94/51 L 03/04/19 08:45 72 28 H 85/54 L 03/04/19 08:40 67 18 96/54 L 03/04/19 08:35 68 25 H 94/63 L 03/04/19 08:31 74 28 H 83/54 L 03/04/19 08:25 72 20 89/49 L 03/04/19 08:20 73 21 86/53 L 03/04/19 08:15 73 73 18 92/55 L 92/55 L 03/04/19 08:10 77 20 80/51 L 03/04/19 08:06 118 H 88/54 L 03/04/19 08:05 91 H 22 88/54 L 03/04/19 08:02 112 H 71/52 L 03/04/19 08:01 109 H 19 71/52 L 03/04/19 07:55 124 H 23 91/74 L 03/04/19 07:54 122 H 98/32 L 03/04/19 07:53 119 H 21 98/32 L 03/04/19 07:49 122 H 26 H 64/49 L 03/04/19 07:45 147 H 29 H 03/04/19 07:42 146 H 82/52 L 03/04/19 07:30 151 H 03/04/19 07:17 36.6 C 113/70 03/04/19 07:15 119 H 03/04/19 07:02 115 H 20 03/04/19 07:00 108 H 03/04/19 06:00 100 H 03/04/19 05:37 82 16 03/04/19 05:15 113 H 03/04/19 04:10 36.7 C 81 20 113/70 03/03/19 23:14 36.8 C 73 16 113/60 03/03/19 23:00 70 Pulse Ox 03/04/19 10:30 100 03/04/19 10:15 100 03/04/19 10:00 100 03/04/19 09:45 100 03/04/19 09:35 100 03/04/19 09:30 100 03/04/19 09:25 100 03/04/19 09:20 100 03/04/19 09:15 100 03/04/19 09:10 100 03/04/19 09:05 100 03/04/19 09:01 100 03/04/19 08:55 100 03/04/19 08:50 100 03/04/19 08:45 03/04/19 08:40 100 03/04/19 08:35 100 03/04/19 08:31 03/04/19 08:25 100 03/04/19 08:20 100 03/04/19 08:15 100 03/04/19 08:10 92 03/04/19 08:06 03/04/19 08:05 89 L 03/04/19 08:02 03/04/19 08:01 79 L 03/04/19 07:55 100 03/04/19 07:54 03/04/19 07:53 03/04/19 07:49 03/04/19 07:45 100 03/04/19 07:42 03/04/19 07:30 03/04/19 07:17 03/04/19 07:15 03/04/19 07:02 92 03/04/19 07:00 03/04/19 06:00 03/04/19 05:37 95 03/04/19 05:15 03/04/19 04:10 96 03/03/19 23:14 98 03/03/19 23:00 Laboratory Results Laboratory Results - last 24 hr 03/03/19 03/03/19 03/03/19 12:16 15:01 16:07 WBC RBC Hgb Hct MCV MCH MCHC RDW Std Deviation RDW Coeff of Mp Plt Count MPV Immature Gran % (Auto) Neut % (Auto) Lymph % (Auto) [place] % (Auto) Eos % (Auto) Baso % (Auto) Immature Gran # (Auto) Neut # (Auto) Lymph # (Auto) [place] # (Auto) Eos # (Auto) Baso # (Auto) Absolute Nucleated RBC Nucleated RBC % (auto) Polychromasia Anisocytosis APTT 52.4 H* PTT Ratio 1.9 ABG pH ABG pCO2 ABG pO2 ABG HCO3 ABG O2 Saturation ABG Base Excess [place] Test Barometric Pressure Oxygen Given Sodium Potassium Chloride Carbon Dioxide Anion Gap BUN Creatinine Est Cr Clr Drug Dosing Est GFR ( Amer) Est GFR (Non-Af Amer) BUN/Creatinine Ratio Glucose POC Glucose 117 H 121 H Calcium Troponin I 03/03/19 03/04/19 03/04/19 20:05 06:21 06:21 WBC 9.94 RBC 3.05 L Hgb 9.9 L Hct 30.7 L MCV 100.7 H MCH 32.5 MCHC 32.2 RDW Std Deviation 65.6 H RDW Coeff of Mp 18.3 H Plt Count 267 MPV 9.9 Immature Gran % (Auto) 0.6 Neut % (Auto) 68.8 Lymph % (Auto) 13.3 [place] % (Auto) 17.1 Eos % (Auto) 0.1 Baso % (Auto) 0.1 Immature Gran # (Auto) 0.06 H Neut # (Auto) 6.84 H Lymph # (Auto) 1.32 [place] # (Auto) 1.70 H Eos # (Auto) 0.01 Baso # (Auto) 0.01 Absolute Nucleated RBC 0.42 H Nucleated RBC % (auto) 4.2 Polychromasia 1+ Anisocytosis Present APTT 53.1 H* PTT Ratio 2.0 ABG pH ABG pCO2 ABG pO2 ABG HCO3 ABG O2 Saturation ABG Base Excess [place] Test Barometric Pressure Oxygen Given Sodium Potassium Chloride Carbon Dioxide Anion Gap BUN Creatinine Est Cr Clr Drug Dosing Est GFR ( Amer) Est GFR (Non-Af Amer) BUN/Creatinine Ratio Glucose POC Glucose 170 H Calcium Troponin I 03/04/19 03/04/19 03/04/19 06:21 06:43 07:13 WBC RBC Hgb Hct MCV MCH MCHC RDW Std Deviation RDW Coeff of Mp Plt Count MPV Immature Gran % (Auto) Neut % (Auto) Lymph % (Auto) [place] % (Auto) Eos % (Auto) Baso % (Auto) Immature Gran # (Auto) Neut # (Auto) Lymph # (Auto) [place] # (Auto) Eos # (Auto) Baso # (Auto) Absolute Nucleated RBC Nucleated RBC % (auto) Polychromasia Anisocytosis APTT PTT Ratio ABG pH 7.51 H* ABG pCO2 31 L ABG pO2 82 ABG HCO3 24 ABG O2 Saturation 96.1 H ABG Base Excess 1.5 [place] Test Pos Barometric Pressure 729.7 Oxygen Given RA Sodium 134 L Potassium 3.6 Chloride 94 L Carbon Dioxide 30 Anion Gap 10.0 BUN 32 H Creatinine 3.90 H Est Cr Clr Drug Dosing 17.7 Est GFR ( Amer) 16.3 Est GFR (Non-Af Amer) 14.0 BUN/Creatinine Ratio 8.1 L Glucose 126 H POC Glucose 127 H Calcium 8.4 L Troponin I 4.670 H* (1) Congestive heart failure Heart failure chronicity: unspecified Heart failure type: unspecified Qualified Code(s): I50.9 - Heart failure, unspecified
--- NOTE | 2019-03-04 12:28 | Cardiology Progress Note ---
Date of Service March 04, 2019 Assessment & Plan (1) Paroxysmal atrial fibrillation with RVR: (2) Non-ST elevation (NSTEMI) myocardial infarction: (3) Acute on chronic systolic and diastolic heart failure, NYHA class 4: (4) Ischemic cardiomyopathy: (5) CAD (coronary artery disease): (6) Pneumonia: (7) ESRD (end stage renal disease) on dialysis: (8) Hypotension: 78-year-old patient admitted with aspiration pneumonia, congestive heart failure, and non-STEMI. Developed rapid atrial fibrillation earlier this a.m. I suspect related to volume depletion. Patient treated with IV normal saline bolus and IV amiodarone. Subsequently converted to normal sinus rhythm. IV heparin infusing. Continue IV amiodarone today with plans to transition to at least short-term amiodarone for the next 3 months. 200 mg twice daily will be initiated in the a.m. Continue aspirin, Plavix and IV heparin at this time. Overall prognosis remains guarded. Subjective Patient seen and examined at the bedside. Developed rapid atrial fibrillation earlier this morning. IV amiodarone initiated. Patient subsequently converted to normal sinus rhythm. Patient also treated with IV fluid due to mild volume depletion. Reports chest pressure during episode of atrial fibrillation. Denies syncope or near syncope. Currently resting comfortably. Brother is present at bedside. Review of Systems Review of Systems: All systems reviewed & are unremarkable except as noted in HPI & below Physical Exam Physical Exam: General: NAD, AAO x3, chronically ill. HEENT: Normocephalic. Atraumatic. Conjunctiva pink, no scleral icterus. Neck: No carotid bruits, the carotid upstrokes are brisk. No JVD. No HJR Heart: Regular normal S-1 and S-2 no S-3 or S-4 gallop. 2/6 mid peaking systolic ejection murmur heard best at the right second intercostal space. PMI is not displaced. No RV heave. Lungs: Diminished breath sounds at the bases bilaterally. No rhonchi or wheeze. Abdomen: Mild distention, no tenderness or guarding. Normal bowel sounds. No masses or organomegaly. No abdominal bruits. Extremities: Left upper extremity fistula with palpable thrill. No clubbing, cyanosis, or edema. Pulses: Diminished femoral pulses bilaterally. Radial=1/4 on right. Femoral pulse: 1/4 on right, 3/4 on the left. Neuro: Cranial nerves grossly intact. No focal motor deficit. Results & Data Vital Signs (Past 12 Hours) Vital Signs Temp Pulse Pulse Pulse Resp BP BP 03/04/19 12:01 66 24 80/55 L 03/04/19 11:30 62 22 94/54 L 03/04/19 11:15 68 26 H 96/61 L 03/04/19 11:00 36.5 C 70 69 23 97/60 L 97/60 L 03/04/19 10:45 70 21 100/59 L 03/04/19 10:30 68 20 101/62 03/04/19 10:15 69 19 94/58 L 03/04/19 10:00 65 21 82/50 L 03/04/19 09:45 71 20 86/55 L 03/04/19 09:35 73 22 80/53 L 03/04/19 09:30 71 25 H 77/51 L 03/04/19 09:25 71 22 80/51 L 03/04/19 09:20 71 23 81/50 L 03/04/19 09:15 70 19 79/51 L 03/04/19 09:10 71 23 78/49 L 03/04/19 09:05 70 25 H 75/54 L 03/04/19 09:01 63 19 76/46 L 03/04/19 08:55 72 22 81/49 L 03/04/19 08:50 68 27 H 94/51 L 03/04/19 08:45 72 28 H 85/54 L 03/04/19 08:40 67 18 96/54 L 03/04/19 08:35 68 25 H 94/63 L 03/04/19 08:31 74 28 H 83/54 L 03/04/19 08:25 72 20 89/49 L 03/04/19 08:20 73 21 86/53 L 03/04/19 08:15 73 73 18 92/55 L 92/55 L 03/04/19 08:10 77 20 80/51 L 03/04/19 08:06 118 H 88/54 L 03/04/19 08:05 91 H 22 88/54 L 03/04/19 08:02 112 H 71/52 L 03/04/19 08:01 109 H 19 71/52 L 03/04/19 07:55 124 H 23 91/74 L 03/04/19 07:54 122 H 98/32 L 03/04/19 07:53 119 H 21 98/32 L 03/04/19 07:49 122 H 26 H 64/49 L 03/04/19 07:45 147 H 29 H 03/04/19 07:42 146 H 82/52 L 03/04/19 07:30 151 H 03/04/19 07:17 36.6 C 113/70 03/04/19 07:15 119 H 03/04/19 07:02 115 H 20 03/04/19 07:00 108 H 03/04/19 06:00 100 H 03/04/19 05:37 82 16 03/04/19 05:15 113 H 03/04/19 04:10 36.7 C 81 20 113/70 Pulse Ox 03/04/19 12:01 99 03/04/19 11:30 03/04/19 11:15 03/04/19 11:00 100 03/04/19 10:45 100 03/04/19 10:30 100 03/04/19 10:15 100 03/04/19 10:00 100 03/04/19 09:45 100 03/04/19 09:35 100 03/04/19 09:30 100 03/04/19 09:25 100 03/04/19 09:20 100 03/04/19 09:15 100 03/04/19 09:10 100 03/04/19 09:05 100 03/04/19 09:01 100 03/04/19 08:55 100 03/04/19 08:50 100 03/04/19 08:45 03/04/19 08:40 100 03/04/19 08:35 100 03/04/19 08:31 03/04/19 08:25 100 03/04/19 08:20 100 03/04/19 08:15 100 03/04/19 08:10 92 03/04/19 08:06 03/04/19 08:05 89 L 03/04/19 08:02 03/04/19 08:01 79 L 03/04/19 07:55 100 03/04/19 07:54 03/04/19 07:53 03/04/19 07:49 03/04/19 07:45 100 03/04/19 07:42 03/04/19 07:30 03/04/19 07:17 03/04/19 07:15 03/04/19 07:02 92 03/04/19 07:00 03/04/19 06:00 03/04/19 05:37 95 03/04/19 05:15 03/04/19 04:10 96
[2019-03-04] MEDS: HEPARIN SODIUM/DEXTROSE 25,000 UNITS/500 ML BAG IV SCH (14:06)
--- NOTE | 2019-03-04 14:28 | Pharmacy Report ---
Pharmacy Glycemic Short Note 2 - Date of Service March 04, 2019 - Glycemic Short BSG Results (Last 24 hours): 03/03/19 03/03/19 03/04/19 16:07 20:05 06:21 Glucose 126 H POC Glucose 121 H 170 H 03/04/19 03/04/19 07:13 11:00 Glucose POC Glucose 127 H 218 H Outpatient Anti-diabetic Regimen: * Novolog 8 units TID with meals + Sliding scale 0-12 units * Lantus 14 units Daily * A1c = 6.5 % 03/01/19 Risk Factors for Insulin Resistance: * Steroids: Solu-medrol 40mg IV Q8H --> last dose was this morning * Infection: Sepsis 2nd aspiration pneumonitis - on Zosyn and doxycycline PO * IV Fluids: Heparin drip & started amiodarone drip today for AFib * Diet: T2DM ASSESSMENT: 03/04/19 * Solu-medrol discontinued after dose this morning, reduced lantus for today in anticipation in decrease insulin needs with tapering steroids. BSG 218mg/dl and patient to receive 40mg PO Prednisone taper starting tomorrow. Will wait until blood sugars drop to loosen CF and CR or decrease Lantus further. * Amiodarone drip started today for Afib. 03/02/19 * 78 yo M with hx IDDM, ESRD admitted with sepsis 2nd aspiration pneumonitis. He utilizes peritoneal dialysis as an outpatient but has been transitioned to HD as inpatient, last session x4 hours on 03/01 with anticipated daily schedule for now per nephrology * BSG's ranged 133-204 mg/dL yesterday. * CHO ratio was tightened yesterday AM, but patient did not consume significant CHO yesterday. 30 g CHO consumed at breakfast today with slight increase in BSG noted from 177 to 205 mg/dL. Hesitant to tighten further as parameters are already tighter than weight-based severe stress estimate and this is the only CHO coverage the patient has thus far received. * Will increase Lantus dose slightly 2nd fasting BSG of 177 mg/dL this AM. Patient received a total of 29 units yesterday with minimal po intake. Will therefore increase Lantus to a total of 30 units today (as 20+10 units). Will give additional 5 units tonight for persistent BSG >180 mg/dL IN THE ABSCENCE OF STEROID TAPER * Patient will require a significant adjustment of his glycemic regimen if/when steroids are tapered. PLAN FOR INPATIENT GLYCEMIC CONTROL: * Basal insulin: Lantus 20 units SQ Qam * Bolus insulin * NovoLog per scale ACHS or Q6hrs while NPO * Goal Range: Low 110 mg/dL - High 140 mg/dL * Correction Factor: 15 mg/dL/unit * Nutritional / Prandial insulin per carb ratio of 1 unit per 5 grams CHO consumed
[2019-03-04] MEDS ORDERED: XOPENEX/ATROVENT 0.63mg/0.5MG NEB COMBO NEB PRN (17:03)
[2019-03-04] MEDS: AMIODARONE 200 MG TAB PO SCH (17:35)
[2019-03-04] MEDS: LEVALBUTEROL HCL 0.63 MG/3 ML NEB NEB PRN (17:41)
[2019-03-04] MEDS: IPRATROPIUM BROMIDE NEB SOLN 0.02% 2.5 ML VIAL INH PRN (17:41)
[2019-03-04] MEDS: LATANOPROST 0.005% OP SOLN 2.5 ML BTL OPB SCH (20:43)
[2019-03-05] MEDS: PIPERACILLIN/TAZOBACTAM 3.375 GM in DEXTROSE 5% 100 ML IV SCH ×2 (04:18→15:29)
[2019-03-05 06:10] LABS: Basophils # (auto) 0.01 K/uL (0-0.2); Basophils % (auto) 0.1 %; Eosinophils # (auto) 0.06 K/uL (0-0.5); Eosinophils % (auto) 0.6 %; Hematocrit (blood only) 28.7 % (42-52); Hemoglobin 9.5 g/dL (14.0-18.0); Immature Granulocytes # (auto) 0.08 K/uL (0.00-0.02); Immature Granulocytes % (auto) 0.9 %; Lymphocytes % (auto) 18.3 %; Mean Corpuscular Hgb Conc 33.1 g/dL (32-36); Mean Platelet Volume 9.7 fL (7.4-10.4); Monocytes # (auto) 1.42 K/uL (0.11-0.59); Monocytes % (auto) 15.3 %; Neutrophils # (auto) 6.03 K/uL (1.4-6.5); Neutrophils % (auto) 64.8 %; Nucleated RBC # (auto) 0.24 K/uL (0-0); Nucleated RBC % (auto) 2.6 %; Platelet Count 221 K/uL (130-400); RDW Coefficient of Variation 18.4 % (11.5-14.5); RDW Standard Deviation 64.3 fL (36.4-46.3)
[2019-03-05 06:36] LABS: Partial Thromboplastin Ratio 2.5
[2019-03-05 06:44] LABS: Partial Thromboplastin Time 68.4 Seconds (21.0-31.0)
[2019-03-05 06:48] LABS: BUN Creatinine Ratio 9.4 (10-20); Calcium 8.2 mg/dl (8.5-10.1); Creatinine Clr Calc Pharmacy 13.2 ml/min; Est GFR (African American) 11.4; Est GFR (Non-African American) 9.8; Potassium 3.4 mmol/L (3.5-5.1)
[2019-03-05 06:59] LABS: Anisocytosis Present; Macrocytosis Present; Ovalocytes 1+; Polychromasia 1+
[2019-03-05] MEDS: CARBOHYDRATES FOR HYPOGLYCEMIA PO PRN (07:15)
[2019-03-05] MEDS: INSULIN ASPART 100 UNITS/ML 3 ML PEN SC SCH ×4 (07:34→21:13)
[2019-03-05] MEDS: NEPHROCAPS PO SCH (07:43)
[2019-03-05] MEDS: SERTRALINE HCL 50 MG TABLET PO SCH (07:43)
[2019-03-05] MEDS: METOPROLOL SUCC 25MG EXT REL TAB PO SCH (07:43)
[2019-03-05] MEDS: DOCUSATE SODIUM 100 MG CAP PO SCH ×2 (07:43→19:52)
[2019-03-05] MEDS: SEVELAMER HCL 800 MG TABLET PO SCH ×3 (07:45→16:37)
[2019-03-05] MEDS: ASPIRIN 81 MG ECTAB PO SCH (07:45)
[2019-03-05] MEDS: CLOPIDOGREL BISULFATE 75 MG TAB PO SCH (07:45)
[2019-03-05] MEDS: ATORVASTATIN 40 MG TAB PO SCH (07:45)
[2019-03-05] MEDS: PANTOprazole 40 MG TAB PO SCH (07:45)
[2019-03-05] MEDS: AMIODARONE 200 MG TAB PO SCH ×2 (07:45→19:52)
[2019-03-05] MEDS: DORZOLAMIDE/TIMOLOL 22.3/6.8MG/ML 10 ML BTL OPB SCH ×2 (07:47→19:54)
[2019-03-05] MEDS: NYSTATIN SUSP 500,000 U/5 ML UDC PO SCH ×4 (07:47→19:53)
[2019-03-05] MEDS: DOXYCYCLINE HYCLATE 100 MG CAP PO SCH ×2 (07:48→19:53)
[2019-03-05] MEDS: INSULIN GLARGINE SOLOSTAR 100 UNITS/ML 3 ML PEN SC SCH (07:49)
--- NOTE | 2019-03-05 12:41 | Nephrology Progress Note ---
Date of Service March 05, 2019 Assessment & Plan (1) ESRD (end stage renal disease) on dialysis: pt is traditionally on PD but has functional AVF; Now doing HD. Patient had episode of hypotension and rapid A. fib 03/04. BP better this morning. Electrolytes stable. Next dialysis planned for Tuesday (2) Congestive heart failure: Appears well compensated now. Cardiology following closely; for conservative mgt; work at optimizing volumes status (3) Anemia: aggressive epo, IV iron on dialysis; t stn 15% this admission; no heparin since on gtt (4) Pneumonia: on steroids, zosyn; will optimize volume status Subjective Patient seen in follow up for ESRD. He had low BP yesterday. he feels better today. No SOB or dizziness. No palpitations. No leg edema. eating well. Brother at bedside, all questions answered Review of Systems Review of Systems: All systems reviewed & are unremarkable except as noted in HPI & below Physical Exam Physical Exam: General exam: Appears comfortable, no acute distress HEENT: Pupils are equal and reactive to light Neck: No JVD, neck is supple trachea is midline Respiratory system: Clear breath sounds bilaterally. Gastrointestinal: Abdomen is soft, non distended, non tender, bowel sounds are present. PD catheter present CVS: Regular rate and rhythm. No murmurs, rubs or gallops Musculoskeletal: No joint or muscle tenderness Extremities: Non tender, no edema, peripheral pulses are present Neuro: Oriented, no tremors, no focal neurological deficits Skin: No rashes Access: AVF Results & Data Vital Signs (Past 12 Hours) Vital Signs Temp Pulse Pulse Resp BP Pulse Ox 03/05/19 12:23 36.6 C 64 20 89/52 L 99 03/05/19 08:49 55 L 03/05/19 07:13 36.5 C 70 16 115/64 99 03/05/19 04:15 36.4 C L 63 26 H 112/62 100 Laboratory Results Laboratory Results - last 24 hr 03/04/19 03/04/19 03/04/19 11:54 16:12 17:06 WBC RBC Hgb Hct MCV MCH MCHC RDW Std Deviation RDW Coeff of Mp Plt Count MPV Immature Gran % (Auto) Neut % (Auto) Lymph % (Auto) [place] % (Auto) Eos % (Auto) Baso % (Auto) Immature Gran # (Auto) Neut # (Auto) Lymph # (Auto) [place] # (Auto) Eos # (Auto) Baso # (Auto) Absolute Nucleated RBC Nucleated RBC % (auto) Polychromasia Anisocytosis Macrocytosis Ovalocytes APTT PTT Ratio Sodium Potassium Chloride Carbon Dioxide Anion Gap BUN Creatinine Est Cr Clr Drug Dosing Est GFR ( Amer) Est GFR (Non-Af Amer) BUN/Creatinine Ratio Glucose POC Glucose 149 H Calcium Troponin I 3.830 H* 3.720 H* 03/04/19 03/05/19 03/05/19 20:05 05:53 05:53 WBC 9.30 RBC 2.90 L Hgb 9.5 L Hct 28.7 L MCV 99.0 MCH 32.8 MCHC 33.1 RDW Std Deviation 64.3 H RDW Coeff of Mp 18.4 H Plt Count 221 MPV 9.7 Immature Gran % (Auto) 0.9 Neut % (Auto) 64.8 Lymph % (Auto) 18.3 [place] % (Auto) 15.3 Eos % (Auto) 0.6 Baso % (Auto) 0.1 Immature Gran # (Auto) 0.08 H Neut # (Auto) 6.03 Lymph # (Auto) 1.70 [place] # (Auto) 1.42 H Eos # (Auto) 0.06 Baso # (Auto) 0.01 Absolute Nucleated RBC 0.24 H Nucleated RBC % (auto) 2.6 Polychromasia 1+ Anisocytosis Present Macrocytosis Present Ovalocytes 1+ APTT PTT Ratio Sodium 134 L Potassium 3.4 L Chloride 95 L Carbon Dioxide 25 Anion Gap 13.0 H BUN 50 H D Creatinine 5.24 H* D Est Cr Clr Drug Dosing 13.2 Est GFR ( Amer) 11.4 Est GFR (Non-Af Amer) 9.8 BUN/Creatinine Ratio 9.4 L Glucose 65 L POC Glucose 103 H Calcium 8.2 L Troponin I 03/05/19 03/05/19 03/05/19 05:53 07:11 07:34 WBC RBC Hgb Hct MCV MCH MCHC RDW Std Deviation RDW Coeff of Mp Plt Count MPV Immature Gran % (Auto) Neut % (Auto) Lymph % (Auto) [place] % (Auto) Eos % (Auto) Baso % (Auto) Immature Gran # (Auto) Neut # (Auto) Lymph # (Auto) [place] # (Auto) Eos # (Auto) Baso # (Auto) Absolute Nucleated RBC Nucleated RBC % (auto) Polychromasia Anisocytosis Macrocytosis Ovalocytes APTT 68.4 H* PTT Ratio 2.5 Sodium Potassium Chloride Carbon Dioxide Anion Gap BUN Creatinine Est Cr Clr Drug Dosing Est GFR ( Amer) Est GFR (Non-Af Amer) BUN/Creatinine Ratio Glucose POC Glucose 68 L* 85 Calcium Troponin I 03/05/19 11:16 WBC RBC Hgb Hct MCV MCH MCHC RDW Std Deviation RDW Coeff of Mp Plt Count MPV Immature Gran % (Auto) Neut % (Auto) Lymph % (Auto) [place] % (Auto) Eos % (Auto) Baso % (Auto) Immature Gran # (Auto) Neut # (Auto) Lymph # (Auto) [place] # (Auto) Eos # (Auto) Baso # (Auto) Absolute Nucleated RBC Nucleated RBC % (auto) Polychromasia Anisocytosis Macrocytosis Ovalocytes APTT PTT Ratio Sodium Potassium Chloride Carbon Dioxide Anion Gap BUN Creatinine Est Cr Clr Drug Dosing Est GFR ( Amer) Est GFR (Non-Af Amer) BUN/Creatinine Ratio Glucose POC Glucose 142 H Calcium Troponin I (1) Congestive heart failure Heart failure chronicity: unspecified Heart failure type: unspecified Qualified Code(s): I50.9 - Heart failure, unspecified
--- NOTE | 2019-03-05 13:25 | Cardiology Progress Note ---
Date of Service March 05, 2019 Assessment & Plan (1) Paroxysmal atrial fibrillation with RVR: (2) Non-ST elevation (NSTEMI) myocardial infarction: (3) Acute on chronic systolic and diastolic heart failure, NYHA class 4: (4) Ischemic cardiomyopathy: (5) CAD (coronary artery disease): (6) Pneumonia: (7) ESRD (end stage renal disease) on dialysis: (8) Hypotension: 78-year-old patient admitted with aspiration pneumonia, congestive heart failure, and non-STEMI. Transient atrial fibrillation with rapid ventricular response noted 03/04/2019. Patient is return to sinus rhythm currently receiving oral amiodarone. I suspect transient atrial fibrillation in part due to mild volume depletion. Received gentle IV fluid 03/04 and appears euvolemic/compensated today. Recommend reducing Toprol-XL to 12.5 mg daily. Continue amiodarone 200 mg twice daily. IV heparin will be discontinued at this time. Will continue to follow patient during hospitalization. Subjective Patient seen and examined the bedside. No recurrent atrial fibrillation overnight. IV amiodarone discontinued. Oral amiodarone, 200 mg twice daily added. Patient feeling better today. Appetite improved. Denies palpitations, chest discomfort, unusual shortness of breath. No lower extremity edema. Weight is down approximately 6 kg since admission. Review of Systems Review of Systems: All systems reviewed & are unremarkable except as noted in HPI & below Physical Exam Physical Exam: General: NAD, AAO x3, chronically ill. HEENT: Normocephalic. Atraumatic. Conjunctiva pink, no scleral icterus. Neck: No carotid bruits, the carotid upstrokes are brisk. No JVD. No HJR Heart: Regular normal S-1 and S-2 no S-3 or S-4 gallop. 2/6 mid peaking systolic ejection murmur heard best at the right second intercostal space. PMI is not displaced. No RV heave. Lungs: Diminished breath sounds at the bases bilaterally. No rhonchi. + Right sided expiratory wheeze. Abdomen: Mild distention, no tenderness or guarding. Normal bowel sounds. No masses or organomegaly. No abdominal bruits. Extremities: Left upper extremity fistula with palpable thrill. No clubbing, cyanosis, or edema. Pulses: Diminished femoral pulses bilaterally. Radial=1/4 on right. Femoral pulse: 1/4 on right, 3/4 on the left. Neuro: Cranial nerves grossly intact. No focal motor deficit. Results & Data Vital Signs (Past 12 Hours) Vital Signs Temp Pulse Pulse Resp BP Pulse Ox 03/05/19 12:23 36.6 C 64 20 89/52 L 99 03/05/19 08:49 55 L 03/05/19 07:13 36.5 C 70 16 115/64 99 03/05/19 04:15 36.4 C L 63 26 H 112/62 100 Laboratory Results Laboratory Results - last 24 hr 03/04/19 03/04/19 03/04/19 16:12 17:06 20:05 WBC RBC Hgb Hct MCV MCH MCHC RDW Std Deviation RDW Coeff of Mp Plt Count MPV Immature Gran % (Auto) Neut % (Auto) Lymph % (Auto) [place] % (Auto) Eos % (Auto) Baso % (Auto) Immature Gran # (Auto) Neut # (Auto) Lymph # (Auto) [place] # (Auto) Eos # (Auto) Baso # (Auto) Absolute Nucleated RBC Nucleated RBC % (auto) Polychromasia Anisocytosis Macrocytosis Ovalocytes APTT PTT Ratio Sodium Potassium Chloride Carbon Dioxide Anion Gap BUN Creatinine Est Cr Clr Drug Dosing Est GFR ( Amer) Est GFR (Non-Af Amer) BUN/Creatinine Ratio Glucose POC Glucose 149 H 103 H Calcium Troponin I 3.720 H* 03/05/19 03/05/19 03/05/19 05:53 05:53 05:53 WBC 9.30 RBC 2.90 L Hgb 9.5 L Hct 28.7 L MCV 99.0 MCH 32.8 MCHC 33.1 RDW Std Deviation 64.3 H RDW Coeff of Mp 18.4 H Plt Count 221 MPV 9.7 Immature Gran % (Auto) 0.9 Neut % (Auto) 64.8 Lymph % (Auto) 18.3 [place] % (Auto) 15.3 Eos % (Auto) 0.6 Baso % (Auto) 0.1 Immature Gran # (Auto) 0.08 H Neut # (Auto) 6.03 Lymph # (Auto) 1.70 [place] # (Auto) 1.42 H Eos # (Auto) 0.06 Baso # (Auto) 0.01 Absolute Nucleated RBC 0.24 H Nucleated RBC % (auto) 2.6 Polychromasia 1+ Anisocytosis Present Macrocytosis Present Ovalocytes 1+ APTT 68.4 H* PTT Ratio 2.5 Sodium 134 L Potassium 3.4 L Chloride 95 L Carbon Dioxide 25 Anion Gap 13.0 H BUN 50 H D Creatinine 5.24 H* D Est Cr Clr Drug Dosing 13.2 Est GFR ( Amer) 11.4 Est GFR (Non-Af Amer) 9.8 BUN/Creatinine Ratio 9.4 L Glucose 65 L POC Glucose Calcium 8.2 L Troponin I 03/05/19 03/05/19 03/05/19 07:11 07:34 11:16 WBC RBC Hgb Hct MCV MCH MCHC RDW Std Deviation RDW Coeff of Mp Plt Count MPV Immature Gran % (Auto) Neut % (Auto) Lymph % (Auto) [place] % (Auto) Eos % (Auto) Baso % (Auto) Immature Gran # (Auto) Neut # (Auto) Lymph # (Auto) [place] # (Auto) Eos # (Auto) Baso # (Auto) Absolute Nucleated RBC Nucleated RBC % (auto) Polychromasia Anisocytosis Macrocytosis Ovalocytes APTT PTT Ratio Sodium Potassium Chloride Carbon Dioxide Anion Gap BUN Creatinine Est Cr Clr Drug Dosing Est GFR ( Amer) Est GFR (Non-Af Amer) BUN/Creatinine Ratio Glucose POC Glucose 68 L* 85 142 H Calcium Troponin I
--- NOTE | 2019-03-05 14:04 | Pharmacy Report ---
Pharmacy Glycemic Short Note 2 - Date of Service March 05, 2019 - Glycemic Short BSG Results (Last 24 hours): 03/04/19 03/04/19 03/05/19 16:12 20:05 05:53 Glucose 65 L POC Glucose 149 H 103 H 03/05/19 03/05/19 03/05/19 07:11 07:34 11:16 Glucose POC Glucose 68 L* 85 142 H Outpatient Anti-diabetic Regimen: * Novolog 8 units TID with meals + Sliding scale 0-12 units * Lantus 14 units Daily * A1c = 6.5 % 03/01/19 Risk Factors for Insulin Resistance: * Steroids: Solu-medrol 40mg IV Q8H --> last dose was this morning * Infection: Sepsis 2nd aspiration pneumonitis - on Zosyn and doxycycline PO * IV Fluids: Heparin drip & started amiodarone drip today for AFib * Diet: T2DM ASSESSMENT: 03/05 * Prednisone taper not currently scheduled (contacted provider if to start) * Fasting this AM 65, reduced lantus to home dose of 14 units * As prednisone currently not ordered loosened CF/CR to 20/7, can adjust as necessary, per po intake per nursing notes 03/04/19 * Solu-medrol discontinued after dose this morning, reduced lantus for today in anticipation in decrease insulin needs with tapering steroids. BSG 218mg/dl and patient to receive 40mg PO Prednisone taper starting tomorrow. Will wait until blood sugars drop to loosen CF and CR or decrease Lantus further. * Amiodarone drip started today for Afib. 03/02/19 * 78 yo M with hx IDDM, ESRD admitted with sepsis 2nd aspiration pneumonitis. He utilizes peritoneal dialysis as an outpatient but has been transitioned to HD as inpatient, last session x4 hours on 03/01 with anticipated daily schedule for now per nephrology * BSG's ranged 133-204 mg/dL yesterday. * CHO ratio was tightened yesterday AM, but patient did not consume significant CHO yesterday. 30 g CHO consumed at breakfast today with slight increase in BSG noted from 177 to 205 mg/dL. Hesitant to tighten further as parameters are already tighter than weight-based severe stress estimate and this is the only CHO coverage the patient has thus far received. * Will increase Lantus dose slightly 2nd fasting BSG of 177 mg/dL this AM. Patient received a total of 29 units yesterday with minimal po intake. Will therefore increase Lantus to a total of 30 units today (as 20+10 units). Will give additional 5 units tonight for persistent BSG >180 mg/dL IN THE ABSCENCE OF STEROID TAPER * Patient will require a significant adjustment of his glycemic regimen if/when steroids are tapered. PLAN FOR INPATIENT GLYCEMIC CONTROL: * Basal insulin: Lantus 14 units SQ Qam * Bolus insulin * NovoLog per scale ACHS or Q6hrs while NPO * Goal Range: Low 110 mg/dL - High 140 mg/dL * Correction Factor: 20 mg/dL/unit * Nutritional / Prandial insulin per carb ratio of 1 unit per 7 grams CHO consumed
[2019-03-05] MEDS ORDERED: predniSONE 20 MG TAB PO ONE (14:15)
[2019-03-05] MEDS: LATANOPROST 0.005% OP SOLN 2.5 ML BTL OPB SCH (19:53)
[2019-03-05] MEDS: IPRATROPIUM BROMIDE NEB SOLN 0.02% 2.5 ML VIAL INH PRN (22:47)
[2019-03-05] MEDS: LEVALBUTEROL HCL 0.63 MG/3 ML NEB NEB PRN (22:49)
[2019-03-05 23:01] LABS: Appearance Urine Clear (Clear); Bacteria Urine Automated Negative (Negative); Bilirubin Urine Negative (Negative); Blood Urine 1+ (Negative); Color Urine Dark Yellow; Glucose Urine UA 2+ (Negative); Ketones Urine Negative (Negative); Leukocyte Esterase Urine Negative (Negative); Nitrite Urine Negative (Negative); Protein Urine 2+ (Negative); Specific Gravity Urine 1.018 (1.000-1.030); Urobilinogen Urine Negative (Negative)
[2019-03-06 06:23] LABS: Eosinophils # (auto) 0.02 K/uL (0-0.5); Eosinophils % (auto) 0.2 %; Hematocrit (blood only) 31.3 % (42-52); Hemoglobin 10.2 g/dL (14.0-18.0); Immature Granulocytes # (auto) 0.09 K/uL (0.00-0.02); Immature Granulocytes % (auto) 0.9 %; Lymphocytes # (auto) 1.27 K/uL (1.2-3.4); Lymphocytes % (auto) 12.7 %; Mean Corpuscular Hgb Conc 32.6 g/dL (32-36); Mean Corpuscular Volume 100.6 fL (80-100); Mean Platelet Volume 9.7 fL (7.4-10.4); Monocytes # (auto) 1.19 K/uL (0.11-0.59); Monocytes % (auto) 11.9 %; Neutrophils # (auto) 7.43 K/uL (1.4-6.5); Neutrophils % (auto) 74.3 %; Platelet Count 229 K/uL (130-400); RDW Coefficient of Variation 18.9 % (11.5-14.5); Red Blood Count 3.11 M/uL (4.7-6.1)
[2019-03-06 06:47] LABS: Echinocytes 1+; Polychromasia 1+
[2019-03-06 07:09] LABS: BUN Creatinine Ratio 9.9 (10-20); Calcium 7.9 mg/dl (8.5-10.1); Creatinine Clr Calc Pharmacy 10.3 ml/min; Est GFR (African American) 8.5; Est GFR (Non-African American) 7.3
[2019-03-06 07:10] LABS: Potassium 4.1 mmol/L (3.5-5.1)
[2019-03-06] MEDS: PANTOprazole 40 MG TAB PO SCH (07:58)
[2019-03-06] MEDS: CLOPIDOGREL BISULFATE 75 MG TAB PO SCH (07:58)
[2019-03-06] MEDS: ATORVASTATIN 40 MG TAB PO SCH (07:58)
[2019-03-06] MEDS: METOPROLOL SUCC 25MG EXT REL TAB PO SCH (07:58)
[2019-03-06] MEDS: DOXYCYCLINE HYCLATE 100 MG CAP PO SCH ×2 (07:59→20:26)
[2019-03-06] MEDS: ASPIRIN 81 MG ECTAB PO SCH (07:59)
[2019-03-06] MEDS: NEPHROCAPS PO SCH (07:59)
[2019-03-06] MEDS: DOCUSATE SODIUM 100 MG CAP PO SCH ×2 (07:59→20:24)
[2019-03-06] MEDS: AMIODARONE 200 MG TAB PO SCH ×2 (07:59→20:25)
[2019-03-06] MEDS: SEVELAMER HCL 800 MG TABLET PO SCH ×3 (07:59→16:58)
[2019-03-06] MEDS: predniSONE 20 MG TAB PO SCH (08:00)
[2019-03-06] MEDS: SERTRALINE HCL 50 MG TABLET PO SCH (08:00)
[2019-03-06] MEDS: AMOXICILLIN/CLAVULANATE 500 MG TAB PO SCH (08:00)
[2019-03-06] MEDS: NYSTATIN SUSP 500,000 U/5 ML UDC PO SCH ×4 (08:06→20:26)
[2019-03-06] MEDS: INSULIN GLARGINE SOLOSTAR 100 UNITS/ML 3 ML PEN SC SCH (08:08)
[2019-03-06] MEDS: INSULIN ASPART 100 UNITS/ML 3 ML PEN SC SCH ×4 (08:08→20:42)
[2019-03-06] MEDS: DORZOLAMIDE/TIMOLOL 22.3/6.8MG/ML 10 ML BTL OPB SCH ×2 (08:09→20:27)
[2019-03-06] MEDS ORDERED: SODIUM CHLORIDE 0.9% 1000ML 1,000 ML IV PRN (08:32)
--- NOTE | 2019-03-06 10:22 | Nephrology Progress Note ---
Date of Service March 06, 2019 Assessment & Plan (1) ESRD (end stage renal disease) on dialysis: pt is traditionally on PD but has functional AVF; Now doing HD. Patient had episode of hypotension and rapid A. fib 03/04. Patient seen on dialysis this morning. He is tolerating dialysis well. Blood pressure is stable. We will aim for 1 L UF (2) Congestive heart failure: Appears well compensated now. Cardiology following closely; for conservative mgt; continue to optimize volume status with dialysis. (3) Anemia: aggressive epo, IV iron on dialysis; t stn 15% this admission; no heparin since on gtt (4) Pneumonia: Improving on steroids, zosyn; will optimize volume status Subjective ESRD patient seen and examined on dialysis. He is tolerating dialysis well this morning. No shortness of breath. No leg swelling. Blood pressure is stable. Review of Systems Review of Systems: All systems reviewed & are unremarkable except as noted in HPI & below Physical Exam Physical Exam: General exam: Appears comfortable, no acute distress HEENT: Pupils are equal and reactive to light Neck: No JVD, neck is supple trachea is midline Respiratory system: Clear breath sounds bilaterally. Gastrointestinal: Abdomen is soft, non distended, non tender, bowel sounds are present CVS: Regular rate and rhythm. No murmurs, rubs or gallops Musculoskeletal: No joint or muscle tenderness Extremities: Non tender, no edema, peripheral pulses are present Neuro: Oriented, no tremors, no focal neurological deficits Skin: No rashes Access: AV fistula Results & Data Vital Signs (Past 12 Hours) Vital Signs Temp Pulse Pulse Pulse Resp BP Pulse Ox 03/06/19 08:00 52 L 03/06/19 07:47 36.4 C L 60 16 113/58 L 100 03/06/19 04:08 36.4 C L 61 19 111/58 L 99 03/05/19 23:59 35.9 C L 64 24 116/60 100 03/05/19 23:50 63 16 95 03/05/19 22:49 62 18 98 Laboratory Results Laboratory Results - last 24 hr 03/05/19 03/05/19 03/05/19 11:16 16:36 20:43 WBC RBC Hgb Hct MCV MCH MCHC RDW Std Deviation RDW Coeff of Mp Plt Count MPV Immature Gran % (Auto) Neut % (Auto) Lymph % (Auto) [place] % (Auto) Eos % (Auto) Baso % (Auto) Immature Gran # (Auto) Neut # (Auto) Lymph # (Auto) [place] # (Auto) Eos # (Auto) Baso # (Auto) Absolute Nucleated RBC Nucleated RBC % (auto) Polychromasia Echinocytes Sodium Potassium Chloride Carbon Dioxide Anion Gap BUN Creatinine Est Cr Clr Drug Dosing Est GFR ( Amer) Est GFR (Non-Af Amer) BUN/Creatinine Ratio Glucose POC Glucose 142 H 113 H 183 H Calcium Urine Color Urine Appearance Urine pH Ur Specific [place] Urine Protein Urine Glucose (UA) Urine Ketones Urine Blood Urine Nitrite Urine Bilirubin Urine Urobilinogen Ur Leukocyte Esterase Urine WBC (Auto) Urine RBC (Auto) U Hyaline Cast (Auto) U Epithel Cells (Auto) Urine Bacteria (Auto) Urine Yeast 03/05/19 03/06/19 03/06/19 22:50 06:11 06:11 WBC 10.00 RBC 3.11 L Hgb 10.2 L Hct 31.3 L MCV 100.6 H MCH 32.8 MCHC 32.6 RDW Std Deviation 64.0 H RDW Coeff of Mp 18.9 H Plt Count 229 MPV 9.7 Immature Gran % (Auto) 0.9 Neut % (Auto) 74.3 Lymph % (Auto) 12.7 [place] % (Auto) 11.9 Eos % (Auto) 0.2 Baso % (Auto) 0.0 Immature Gran # (Auto) 0.09 H Neut # (Auto) 7.43 H Lymph # (Auto) 1.27 [place] # (Auto) 1.19 H Eos # (Auto) 0.02 Baso # (Auto) 0.00 Absolute Nucleated RBC 0.20 H Nucleated RBC % (auto) 2.0 Polychromasia 1+ Echinocytes 1+ Sodium 130 L Potassium 4.1 D Chloride 91 L Carbon Dioxide 24 Anion Gap 15.0 H BUN 66 H Creatinine 6.69 H* D Est Cr Clr Drug Dosing 10.3 Est GFR ( Amer) 8.5 Est GFR (Non-Af Amer) 7.3 BUN/Creatinine Ratio 9.9 L Glucose 116 H POC Glucose Calcium 7.9 L Urine Color Dark Yellow Urine Appearance Clear Urine pH 5.0 Ur Specific [place] 1.018 Urine Protein 2+ H Urine Glucose (UA) 2+ H Urine Ketones Negative Urine Blood 1+ H Urine Nitrite Negative Urine Bilirubin Negative Urine Urobilinogen Negative Ur Leukocyte Esterase Negative Urine WBC (Auto) 1-5 Urine RBC (Auto) 5-10 H U Hyaline Cast (Auto) 1-5 U Epithel Cells (Auto) 10-20 H Urine Bacteria (Auto) Negative Urine Yeast Not Reportable 03/06/19 07:11 WBC RBC Hgb Hct MCV MCH MCHC RDW Std Deviation RDW Coeff of Mp Plt Count MPV Immature Gran % (Auto) Neut % (Auto) Lymph % (Auto) [place] % (Auto) Eos % (Auto) Baso % (Auto) Immature Gran # (Auto) Neut # (Auto) Lymph # (Auto) [place] # (Auto) Eos # (Auto) Baso # (Auto) Absolute Nucleated RBC Nucleated RBC % (auto) Polychromasia Echinocytes Sodium Potassium Chloride Carbon Dioxide Anion Gap BUN Creatinine Est Cr Clr Drug Dosing Est GFR ( Amer) Est GFR (Non-Af Amer) BUN/Creatinine Ratio Glucose POC Glucose 110 H Calcium Urine Color Urine Appearance Urine pH Ur Specific [place] Urine Protein Urine Glucose (UA) Urine Ketones Urine Blood Urine Nitrite Urine Bilirubin Urine Urobilinogen Ur Leukocyte Esterase Urine WBC (Auto) Urine RBC (Auto) U Hyaline Cast (Auto) U Epithel Cells (Auto) Urine Bacteria (Auto) Urine Yeast (1) Congestive heart failure Heart failure chronicity: unspecified Heart failure type: unspecified Qualified Code(s): I50.9 - Heart failure, unspecified
--- NOTE | 2019-03-06 15:18 | Cardiology Progress Note ---
Date of Service March 06, 2019 Assessment & Plan (1) Paroxysmal atrial fibrillation with RVR: (2) Non-ST elevation (NSTEMI) myocardial infarction: (3) Acute on chronic systolic and diastolic heart failure, NYHA class 4: (4) Ischemic cardiomyopathy: (5) CAD (coronary artery disease): (6) Pneumonia: (7) ESRD (end stage renal disease) on dialysis: (8) Hypotension: 78-year-old patient admitted with aspiration pneumonia, congestive heart failure, and NSTEMI Developed rapid atrial fibrillation 03/04. Treated with amiodarone and IV fluids subsequently converting to sinus rhythm. Patient has remained in sinus rhythm over the past 48 hours. IV heparin discontinued. Continue current cardiovascular medications including amiodarone, metoprolol, and aspirin. Volume status management per hemodialysis. Consider transition to long-term hemodialysis in the outpatient setting due to difficulties maintaining euvolemia with peritoneal dialysis while residing at the [facility]. Overall clinical status improving with medical management. Possible transfer to rehab in the next 24 to 48 hours. Subjective Patient seen and examined the bedside after dialysis. Feeling well from a cardiovascular perspective. Remains borderline hypotensive. No recurrent atrial fibrillation on telemetry. Denies chest pain or shortness of breath. No orthopnea, PND, lower extremity edema. Review of Systems Review of Systems: All systems reviewed & are unremarkable except as noted in HPI & below Physical Exam Physical Exam: General: NAD, AAO x3, chronically ill. HEENT: Normocephalic. Atraumatic. Conjunctiva pink, no scleral icterus. Neck: No carotid bruits, the carotid upstrokes are brisk. No JVD. No HJR Heart: Regular normal S-1 and S-2 no S-3 or S-4 gallop. 2/6 mid peaking systolic ejection murmur heard best at the right second intercostal space. PMI is not displaced. No RV heave. Lungs: Diminished breath sounds at the bases bilaterally. No rhonchi or wheeze. Abdomen: Mild distention, no tenderness or guarding. Normal bowel sounds. No masses or organomegaly. No abdominal bruits. Extremities: Left upper extremity fistula with palpable thrill. No clubbing, cyanosis, or edema. Pulses: Diminished femoral pulses bilaterally. Radial=1/4 on right. Femoral pulse: 1/4 on right, 3/4 on the left. Neuro: Cranial nerves grossly intact. No focal motor deficit. Results & Data Vital Signs (Past 12 Hours) Vital Signs Temp Pulse Pulse Pulse Resp BP BP 03/06/19 13:45 36.9 C 62 117/57 L 03/06/19 13:40 51 L 115/60 03/06/19 13:20 50 L 128/53 L 03/06/19 13:00 56 L 118/56 L 03/06/19 12:40 62 107/54 L 03/06/19 12:20 62 132/57 L 03/06/19 12:00 53 L 126/53 L 03/06/19 11:40 58 L 109/56 L 03/06/19 11:20 62 117/62 03/06/19 11:00 67 111/61 03/06/19 10:42 61 109/59 L 03/06/19 10:20 51 L 112/55 L 03/06/19 10:00 60 98/53 L 03/06/19 09:35 36.9 C 52 L 03/06/19 08:00 52 L 03/06/19 07:47 36.4 C L 60 16 113/58 L 03/06/19 04:08 36.4 C L 61 19 111/58 L Pulse Ox 03/06/19 13:45 03/06/19 13:40 03/06/19 13:20 03/06/19 13:00 03/06/19 12:40 03/06/19 12:20 03/06/19 12:00 03/06/19 11:40 03/06/19 11:20 03/06/19 11:00 03/06/19 10:42 03/06/19 10:20 03/06/19 10:00 03/06/19 09:35 03/06/19 08:00 03/06/19 07:47 100 03/06/19 04:08 99 Laboratory Results Laboratory Results - last 24 hr 03/05/19 03/05/19 03/05/19 16:36 20:43 22:50 WBC RBC Hgb Hct MCV MCH MCHC RDW Std Deviation RDW Coeff of Mp Plt Count MPV Immature Gran % (Auto) Neut % (Auto) Lymph % (Auto) [place] % (Auto) Eos % (Auto) Baso % (Auto) Immature Gran # (Auto) Neut # (Auto) Lymph # (Auto) [place] # (Auto) Eos # (Auto) Baso # (Auto) Absolute Nucleated RBC Nucleated RBC % (auto) Polychromasia Echinocytes Sodium Potassium Chloride Carbon Dioxide Anion Gap BUN Creatinine Est Cr Clr Drug Dosing Est GFR ( Amer) Est GFR (Non-Af Amer) BUN/Creatinine Ratio Glucose POC Glucose 113 H 183 H Calcium Urine Color Dark Yellow Urine Appearance Clear Urine pH 5.0 Ur Specific [place] 1.018 Urine Protein 2+ H Urine Glucose (UA) 2+ H Urine Ketones Negative Urine Blood 1+ H Urine Nitrite Negative Urine Bilirubin Negative Urine Urobilinogen Negative Ur Leukocyte Esterase Negative Urine WBC (Auto) 1-5 Urine RBC (Auto) 5-10 H U Hyaline Cast (Auto) 1-5 U Epithel Cells (Auto) 10-20 H Urine Bacteria (Auto) Negative Urine Yeast Not Reportable 03/06/19 03/06/19 03/06/19 06:11 06:11 07:11 WBC 10.00 RBC 3.11 L Hgb 10.2 L Hct 31.3 L MCV 100.6 H MCH 32.8 MCHC 32.6 RDW Std Deviation 64.0 H RDW Coeff of Mp 18.9 H Plt Count 229 MPV 9.7 Immature Gran % (Auto) 0.9 Neut % (Auto) 74.3 Lymph % (Auto) 12.7 [place] % (Auto) 11.9 Eos % (Auto) 0.2 Baso % (Auto) 0.0 Immature Gran # (Auto) 0.09 H Neut # (Auto) 7.43 H Lymph # (Auto) 1.27 [place] # (Auto) 1.19 H Eos # (Auto) 0.02 Baso # (Auto) 0.00 Absolute Nucleated RBC 0.20 H Nucleated RBC % (auto) 2.0 Polychromasia 1+ Echinocytes 1+ Sodium 130 L Potassium 4.1 D Chloride 91 L Carbon Dioxide 24 Anion Gap 15.0 H BUN 66 H Creatinine 6.69 H* D Est Cr Clr Drug Dosing 10.3 Est GFR ( Amer) 8.5 Est GFR (Non-Af Amer) 7.3 BUN/Creatinine Ratio 9.9 L Glucose 116 H POC Glucose 110 H Calcium 7.9 L Urine Color Urine Appearance Urine pH Ur Specific [place] Urine Protein Urine Glucose (UA) Urine Ketones Urine Blood Urine Nitrite Urine Bilirubin Urine Urobilinogen Ur Leukocyte Esterase Urine WBC (Auto) Urine RBC (Auto) U Hyaline Cast (Auto) U Epithel Cells (Auto) Urine Bacteria (Auto) Urine Yeast 03/06/19 14:29 WBC RBC Hgb Hct MCV MCH MCHC RDW Std Deviation RDW Coeff of Mp Plt Count MPV Immature Gran % (Auto) Neut % (Auto) Lymph % (Auto) [place] % (Auto) Eos % (Auto) Baso % (Auto) Immature Gran # (Auto) Neut # (Auto) Lymph # (Auto) [place] # (Auto) Eos # (Auto) Baso # (Auto) Absolute Nucleated RBC Nucleated RBC % (auto) Polychromasia Echinocytes Sodium Potassium Chloride Carbon Dioxide Anion Gap BUN Creatinine Est Cr Clr Drug Dosing Est GFR ( Amer) Est GFR (Non-Af Amer) BUN/Creatinine Ratio Glucose POC Glucose 111 H Calcium Urine Color Urine Appearance Urine pH Ur Specific [place] Urine Protein Urine Glucose (UA) Urine Ketones Urine Blood Urine Nitrite Urine Bilirubin Urine Urobilinogen Ur Leukocyte Esterase Urine WBC (Auto) Urine RBC (Auto) U Hyaline Cast (Auto) U Epithel Cells (Auto) Urine Bacteria (Auto) Urine Yeast
[2019-03-06] MEDS ORDERED: AMOXICILLIN/CLAVULANATE 500 MG TAB PO SCH (16:00)
[2019-03-06] MEDS: LATANOPROST 0.005% OP SOLN 2.5 ML BTL OPB SCH (20:26)
--- NOTE | 2019-03-06 20:48 | Hospitalist Progress Note ---
Date of Service March 06, 2019 Assessment & Plan (1) Acute on chronic systolic and diastolic heart failure, NYHA class 4: Updated echo EF 25 to 30%, moderate to severe mitral regurgitation, Euvolemic For hemodialysis tomorrow Volume management with hemodialysis per associate account manager (2) Pneumonia: With possible sepsis Possible aspiration pneumonia versus healthcare associated pneumonia Sputum culture, blood cultures: Negative Next nasal MRSA: Negative Lactate checked, normal Changed antibiotic from ceftriaxone and Flagyl to Zosyn and doxycycline day 4 --> changed to Augmentin, Doxy, last day of antibiotics tomorrow March 07, 2019 remains afebrile, improving, cough resolved Speech therapist ordered for evaluation of failure, aspiration risk VFSS performed: Positive for aspiration of thin liquids, silent Recommending slippery diet, thin liquids with chin tuck Please refer to full recommendations of speech therapist under notes for complete instructions (3) Non-ST elevation (NSTEMI) myocardial infarction: Troponin trended up, highest 16,[address]ite treater Dr. Valerio In light of ongoing pneumonia, volume overload, recommended medical management Based on heparin IV drip, discontinued March 05, 2019 Remains chest pain-free (4) CAD (coronary artery disease): Patient with known CAD and PCI to RCA with ANNIE 10/2018 On dual antiplatelet therapy with aspirin and Plavix Off coreg and lisinopril due to hypotension Continue high intensity statin last echo 01/2019 revealed slight improvement of EF to 40% with inferior, po sterior, septal wall severe hypokinesia Management per above (5) ESRD (end stage renal disease) on dialysis: Usually on on peritoneal dialysis Placed on hemodialysis for volume management while admitted (6) IDDM (insulin dependent diabetes mellitus): Last A1c 6.0 on 10/2018 Currently on Lantus 14 units daily along with NovoLog with meals consult glycemic pharmacist for management given addition of steroids, appreciate their input given co morbidities loose control is acceptable to prevent hypoglycemia (7) ANI on CPAP: CPAP at bedtime (8) Anemia: Hemoglobin 9.5 No signs of active bleeding Continue to monitor (9) DVT prophylaxis: TEDS, SCDS Disposition: to be determined, case management consulted Most likely will need rehab Follow up: PCP Dr. St upon discharge along with appropriate cardiology and nephrology follow up Subjective Follow-up for acute hypoxic respiratory failure, CHF exacerbation, aspiration pneumonia Status post hemodialysis fourth session today Seen resting in bed, watching TV, comfortable, not in distress still somewhat weak but improved States he feels improved today compared to yesterday Denies shortness of breath, cough resolved, no sputum Denies chest pain, palpitations, dizziness, no other sick Review of Systems Review of Systems: All systems reviewed & are unremarkable except as noted in HPI & below Physical Exam Physical Exam: General- oriented x 2, not in distress, speaks in sentences with no effort or accessory muscle use Eyes- anicteric Neck- no JVD Lungs- clear breath sounds bilaterally Heart- normal rate, regular rhythm; no murmurs Abdomen-normal bowel sounds, soft, no distention, nontender Extremities- no pretibial edema, no calf tenderness Neuro- alert, oriented x 2; no gross focal neurologic deficits Skin- warm & dry Results & Data Vital Signs (Past 12 Hours) Vital Signs Temp Pulse Pulse Pulse Resp BP BP 03/06/19 20:30 36.6 C 67 24 112/61 03/06/19 15:20 36.4 C L 51 L 21 109/43 L 03/06/19 13:45 36.9 C 62 117/57 L 03/06/19 13:40 51 L 115/60 03/06/19 13:20 50 L 128/53 L 03/06/19 13:00 56 L 118/56 L 03/06/19 12:40 62 107/54 L 03/06/19 12:20 62 132/57 L 03/06/19 12:00 53 L 126/53 L 03/06/19 11:40 58 L 109/56 L 03/06/19 11:20 62 117/62 03/06/19 11:00 67 111/61 03/06/19 10:42 61 109/59 L 03/06/19 10:20 51 L 112/55 L 03/06/19 10:00 60 98/53 L 03/06/19 09:35 36.9 C 52 L Pulse Ox 03/06/19 20:30 99 03/06/19 15:20 96 03/06/19 13:45 03/06/19 13:40 03/06/19 13:20 03/06/19 13:00 03/06/19 12:40 03/06/19 12:20 03/06/19 12:00 03/06/19 11:40 03/06/19 11:20 03/06/19 11:00 03/06/19 10:42 03/06/19 10:20 03/06/19 10:00 03/06/19 09:35 Laboratory Results Laboratory Results - last 24 hr 03/05/19 03/05/19 03/06/19 20:43 22:50 06:11 WBC 10.00 RBC 3.11 L Hgb 10.2 L Hct 31.3 L MCV 100.6 H MCH 32.8 MCHC 32.6 RDW Std Deviation 64.0 H RDW Coeff of Mp 18.9 H Plt Count 229 MPV 9.7 Immature Gran % (Auto) 0.9 Neut % (Auto) 74.3 Lymph % (Auto) 12.7 [place] % (Auto) 11.9 Eos % (Auto) 0.2 Baso % (Auto) 0.0 Immature Gran # (Auto) 0.09 H Neut # (Auto) 7.43 H Lymph # (Auto) 1.27 [place] # (Auto) 1.19 H Eos # (Auto) 0.02 Baso # (Auto) 0.00 Absolute Nucleated RBC 0.20 H Nucleated RBC % (auto) 2.0 Polychromasia 1+ Echinocytes 1+ Sodium Potassium Chloride Carbon Dioxide Anion Gap BUN Creatinine Est Cr Clr Drug Dosing Est GFR ( Amer) Est GFR (Non-Af Amer) BUN/Creatinine Ratio Glucose POC Glucose 183 H Calcium Urine Color Dark Yellow Urine Appearance Clear Urine pH 5.0 Ur Specific [place] 1.018 Urine Protein 2+ H Urine Glucose (UA) 2+ H Urine Ketones Negative Urine Blood 1+ H Urine Nitrite Negative Urine Bilirubin Negative Urine Urobilinogen Negative Ur Leukocyte Esterase Negative Urine WBC (Auto) 1-5 Urine RBC (Auto) 5-10 H U Hyaline Cast (Auto) 1-5 U Epithel Cells (Auto) 10-20 H Urine Bacteria (Auto) Negative Urine Yeast Not Reportable 03/06/19 03/06/19 03/06/19 06:11 07:11 14:29 WBC RBC Hgb Hct MCV MCH MCHC RDW Std Deviation RDW Coeff of Mp Plt Count MPV Immature Gran % (Auto) Neut % (Auto) Lymph % (Auto) [place] % (Auto) Eos % (Auto) Baso % (Auto) Immature Gran # (Auto) Neut # (Auto) Lymph # (Auto) [place] # (Auto) Eos # (Auto) Baso # (Auto) Absolute Nucleated RBC Nucleated RBC % (auto) Polychromasia Echinocytes Sodium 130 L Potassium 4.1 D Chloride 91 L Carbon Dioxide 24 Anion Gap 15.0 H BUN 66 H Creatinine 6.69 H* D Est Cr Clr Drug Dosing 10.3 Est GFR ( Amer) 8.5 Est GFR (Non-Af Amer) 7.3 BUN/Creatinine Ratio 9.9 L Glucose 116 H POC Glucose 110 H 111 H Calcium 7.9 L Urine Color Urine Appearance Urine pH Ur Specific [place] Urine Protein Urine Glucose (UA) Urine Ketones Urine Blood Urine Nitrite Urine Bilirubin Urine Urobilinogen Ur Leukocyte Esterase Urine WBC (Auto) Urine RBC (Auto) U Hyaline Cast (Auto) U Epithel Cells (Auto) Urine Bacteria (Auto) Urine Yeast 03/06/19 03/06/19 16:22 20:32 WBC RBC Hgb Hct MCV MCH MCHC RDW Std Deviation RDW Coeff of Mp Plt Count MPV Immature Gran % (Auto) Neut % (Auto) Lymph % (Auto) [place] % (Auto) Eos % (Auto) Baso % (Auto) Immature Gran # (Auto) Neut # (Auto) Lymph # (Auto) [place] # (Auto) Eos # (Auto) Baso # (Auto) Absolute Nucleated RBC Nucleated RBC % (auto) Polychromasia Echinocytes Sodium Potassium Chloride Carbon Dioxide Anion Gap BUN Creatinine Est Cr Clr Drug Dosing Est GFR ( Amer) Est GFR (Non-Af Amer) BUN/Creatinine Ratio Glucose POC Glucose 135 H 162 H Calcium Urine Color Urine Appearance Urine pH Ur Specific [place] Urine Protein Urine Glucose (UA) Urine Ketones Urine Blood Urine Nitrite Urine Bilirubin Urine Urobilinogen Ur Leukocyte Esterase Urine WBC (Auto) Urine RBC (Auto) U Hyaline Cast (Auto) U Epithel Cells (Auto) Urine Bacteria (Auto) Urine Yeast
[2019-03-07] MEDS: CARBOHYDRATES FOR HYPOGLYCEMIA PO PRN (07:29)
[2019-03-07] MEDS: SEVELAMER HCL 800 MG TABLET PO SCH ×3 (07:51→16:50)
[2019-03-07] MEDS: ATORVASTATIN 40 MG TAB PO SCH (07:53)
[2019-03-07] MEDS: CLOPIDOGREL BISULFATE 75 MG TAB PO SCH (07:53)
[2019-03-07] MEDS: PANTOprazole 40 MG TAB PO SCH (07:53)
[2019-03-07] MEDS: AMIODARONE 200 MG TAB PO SCH ×2 (07:54→20:04)
[2019-03-07] MEDS: SERTRALINE HCL 50 MG TABLET PO SCH (07:54)
[2019-03-07] MEDS: DOXYCYCLINE HYCLATE 100 MG CAP PO SCH ×2 (07:54→20:04)
[2019-03-07] MEDS: DOCUSATE SODIUM 100 MG CAP PO SCH ×2 (07:55→20:04)
[2019-03-07] MEDS: predniSONE 20 MG TAB PO SCH (07:55)
[2019-03-07] MEDS: NYSTATIN SUSP 500,000 U/5 ML UDC PO SCH ×4 (07:56→20:04)
[2019-03-07] MEDS: AMOXICILLIN/CLAVULANATE 500 MG TAB PO SCH (07:56)
[2019-03-07] MEDS: NEPHROCAPS PO SCH (07:56)
[2019-03-07] MEDS: ASPIRIN 81 MG ECTAB PO SCH (07:56)
[2019-03-07] MEDS: INSULIN ASPART 100 UNITS/ML 3 ML PEN SC SCH ×3 (07:57→16:49)
[2019-03-07] MEDS: DORZOLAMIDE/TIMOLOL 22.3/6.8MG/ML 10 ML BTL OPB SCH ×2 (07:57→20:05)
[2019-03-07] MEDS: METOPROLOL SUCC 25MG EXT REL TAB PO SCH (08:01)
[2019-03-07 08:02] LABS: Basophils # (auto) 0.01 K/uL (0-0.2); Basophils % (auto) 0.1 %; Hematocrit (blood only) 29.5 % (42-52); Hemoglobin 9.6 g/dL (14.0-18.0); Immature Granulocytes # (auto) 0.08 K/uL (0.00-0.02); Immature Granulocytes % (auto) 0.8 %; Lymphocytes # (auto) 1.55 K/uL (1.2-3.4); Mean Corpuscular Hgb Conc 32.5 g/dL (32-36); Mean Corpuscular Volume 100.7 fL (80-100); Mean Platelet Volume 10.3 fL (7.4-10.4); Monocytes # (auto) 1.28 K/uL (0.11-0.59); Monocytes % (auto) 13.3 %; Neutrophils # (auto) 6.64 K/uL (1.4-6.5); Neutrophils % (auto) 68.8 %; Nucleated RBC # (auto) 0.09 K/uL (0-0); Nucleated RBC % (auto) 0.9 %; Platelet Count 206 K/uL (130-400); RDW Coefficient of Variation 19.8 % (11.5-14.5); RDW Standard Deviation 65.6 fL (36.4-46.3); Red Blood Count 2.93 M/uL (4.7-6.1); White Blood Count 9.66 K/uL (4.8-10.8)
[2019-03-07 08:58] LABS: BUN Creatinine Ratio 9.5 (10-20); Calcium 7.9 mg/dl (8.5-10.1); Creatinine Clr Calc Pharmacy 14.6 ml/min; Est GFR (African American) 12.9; Est GFR (Non-African American) 11.1; Potassium 3.7 mmol/L (3.5-5.1)
[2019-03-07] MEDS ORDERED: INSULIN GLARGINE SOLOSTAR 100 UNITS/ML 3 ML PEN SC SCH (09:00)
--- NOTE | 2019-03-07 13:07 | Hospitalist Progress Note ---
Date of Service March 07, 2019 Assessment & Plan (1) Acute on chronic systolic and diastolic heart failure, NYHA class 4: Updated echo EF 25 to 30%, moderate to severe mitral regurgitation, Valvular status seems to be stable Volume management with hemodialysis per academic affairs manager Appreciate nephrology input and recommended (2) Paroxysmal atrial fibrillation with RVR: Atrial fibrillation noted to be from 03/04 Has been on amiodarone and reverted to sinus rhythm Continue beta-alexandria and aspirin Appreciate cardiology input and recommendation (3) Pneumonia: With possible sepsis Secondary to aspiration pneumonia Sputum culture, blood cultures: Negative Next nasal MRSA: Negative Changed antibiotic from ceftriaxone and Flagyl to Zosyn and doxycycline day 4 --> changed to Augmentin, Doxy, last day of antibiotics tomorrow March 07, 2019 Remains afebrile, improving, cough resolved Speech therapist ordered for evaluation of failure, aspiration risk VFSS performed: Positive for aspiration of thin liquids, silent Recommending slippery diet, thin liquids with chin tuck Please refer to full recommendations of speech therapist under notes for complete instructions This preventive measures were discussed in detail with the patient and his son (4) Non-ST elevation (NSTEMI) myocardial infarction: Troponin trended up, highest 19.200 Appreciate cardiology input and recommendation In light of ongoing pneumonia, volume overload, recommended medical management Based on heparin IV drip, discontinued March 05, 2019 Denies any more chest pain (5) CAD (coronary artery disease): Patient with known CAD and PCI to RCA with ANNIE 10/2018 On dual antiplatelet therapy with aspirin and Plavix Off coreg and lisinopril due to hypotension Continue high intensity statin Last echo 01/2019 revealed slight improvement of EF to 40% with inferior, posterior, septal wall severe hypokinesia Management per above (6) ESRD (end stage renal disease) on dialysis: Was on peritoneal dialysis Placed on hemodialysis for volume management while admitted Likely to continue with hemodialysis (7) IDDM (insulin dependent diabetes mellitus): Last A1c 6.0 on 10/2018 Currently on Lantus 14 units daily along with NovoLog with meals consult glycemic pharmacist for management given addition of steroids, appreciate their input given co morbidities loose control is acceptable to prevent hypoglycemia (8) ANI on CPAP: CPAP at bedtime (9) Anemia: Hemoglobin 9.5 No signs of active bleeding Continue to monitor (10) DVT prophylaxis: TEDS, SCDS Disposition: to be determined, case management consulted PT and OT have been requested Most likely will need rehab Follow up: PCP Dr. St upon discharge along with appropriate cardiology and nephrology follow up Discussed with the patient and her son Subjective 03/07 The patient was seen and examined in telemetry unit in presence of the son Complains to have generalized weakness but denies any other acute symptoms and or distress Review of Systems Review of Systems: All systems reviewed and are unremarkable except as noted below Constitutional: + fatigue and + anorexia Respiratory: no dyspnea Cardiovascular: no chest pain Gastrointestinal: no abdominal pain Physical Exam Physical Exam: Lying in bed comfortably Constitutional: well developed, well nourished, + ill appearing, + frail appearing and cooperative; no acute distress Eyes: EOM intact bilaterally ENMT: Ears: no external ear abnormality Nose: no external nose abnormality Mouth: + dry oral mucous membranes Neck: trachea midline, no thyromegaly no nuchal rigidity Respiratory: normal respiratory effort, + cough and able to speak in complete sentences Auscultation: + diminished lung sounds (chance bl bases) and + crackles Cardiovascular: Rate/Rhythm: regular rate and regular rhythm Heart Sounds: + murmur Extremities: + AV fistula (+ t/b); no edema Gastrointestinal (Abdomen): Inspection/Auscultation: abdomen normal to inspection and normal bowel sounds Percussion/Palpation: abdomen soft; abdomen nontender Musculoskeletal: Generally Skin: no rashes, warm and dry Neurologic: moves all extremities Generally weak Psychiatric: Orientation: alert and oriented x 3 Affect: + depressed affect Results & Data Vital Signs (Past 12 Hours) Vital Signs Temp Pulse Pulse Pulse Resp BP Pulse Ox 03/07/19 11:11 36.4 C L 53 L 18 111/58 L 100 03/07/19 08:22 36.5 C 61 20 86/48 L 98 03/07/19 08:00 63 03/07/19 04:47 36.5 C 52 L 17 110/61 100 Laboratory Results Short CBC 03/07/19 Range/Units 07:21 WBC 9.66 (4.8-10.8) K/uL Hgb 9.6 L (14.0-18.0) g/dL Hct 29.5 L (42-52) % Plt Count 206 (130-400) K/uL BMP 03/07/19 07:21 Sodium 135 L Potassium 3.7 Chloride 98 Carbon Dioxide 28 BUN 45 H Creatinine 4.73 H* D Glucose 59 L Calcium 7.9 L Medications Administered Current Inpatient Medications Acetaminophen (Tylenol) 650 mg PO Q4H PRN PRN Reason: Pain or Fever Stop: 03/30/19 22:11 Amiodarone HCl (Cordarone) 200 mg PO BID [facility] Stop: 04/03/19 16:59 Last Admin: 03/07/19 07:54 Dose: 200 mg Documented by: Aspirin (Ecotrin Ectab) 81 mg PO DAILY MICHAEL Stop: 03/31/19 08:59 Last Admin: 03/07/19 07:56 Dose: 81 mg Documented by: Atorvastatin Calcium (Lipitor) 40 mg PO DAILY MICHAEL Stop: 03/31/19 08:59 Last Admin: 03/07/19 07:53 Dose: 40 mg Documented by: Clopidogrel Bisulfate (Plavix) 75 mg PO DAILY [facility] Stop: 03/31/19 08:59 Last Admin: 03/07/19 07:53 Dose: 75 mg Documented by: Dextrose (Dextrose 50%) 25 - 50 ml IV UD PRN; Protocol PRN Reason: Hypoglycemia Protocol Stop: 03/30/19 22:44 Docusate Sodium (Colace) 100 mg PO BID [facility] Stop: 03/31/19 08:59 Last Admin: 03/07/19 07:55 Dose: 100 mg Documented by: Dorzolamide/Timolol (Cosopt) 1 drops OPB BID [facility] Stop: 03/31/19 08:59 Last Admin: 03/07/19 07:57 Dose: 1 drops Documented by: Doxycycline Hyclate (Vibramycin) 100 mg PO BID [facility] Stop: 03/08/19 09:44 Last Admin: 03/07/19 07:54 Dose: 100 mg Documented by: Glucagon (Glucagen) 1 mg SQ UD PRN; Protocol PRN Reason: Hypoglycemia Protocol Stop: 03/30/19 22:44 Glucose (Glucose 40%) 15 - 30 gm PO UD PRN; Protocol PRN Reason: Hypoglycemia Protocol Stop: 03/30/19 22:44 Glucose (Dex4 Glucose) 4 - 8 tabs PO UD PRN; Protocol PRN Reason: Hypoglycemia Protocol Stop: 03/30/19 22:44 Insulin Aspart (Novolog Flexpen) 0 units SC ACHS MICHAEL Stop: 03/30/19 22:44 Last Admin: 03/07/19 12:15 Dose: 1 units Documented by: Insulin Glargine (Lantus Solostar Pen) 0 units SC QAM [facility]; Protocol Stop: 04/06/19 08:59 Last Admin: 03/07/19 07:58 Dose: 12 units Documented by: Ipratropium [place] (Atrovent 0.02% 0.5mg/2.5ml) 0.5 mg INH Q4H PRN PRN Reason: Shortness Of Breath Or Wheezing Stop: 04/03/19 17:14 Last Admin: 03/05/19 22:47 Dose: 0.5 mg Documented by: Latanoprost (Xalatan Oph) 1 drops OPB [facility] Stop: 03/31/19 20:59 Last Admin: 03/06/19 20:26 Dose: 1 drops Documented by: Levalbuterol HCl (Xopenex 0.63 Mg/3 Ml Neb) 0.63 mg NEB Q4H PRN PRN Reason: Shortness Of Breath Or Wheezing Stop: 04/03/19 17:14 Last Admin: 03/05/19 22:49 Dose: 0.63 mg Documented by: Menthol (Nice) 1 adi BUCCAL UD PRN PRN Reason: Sore Throat Stop: 03/31/19 21:17 Metoprolol Succinate (Toprol Xl) 12.5 mg PO DAILY [facility] Stop: 04/05/19 08:59 Last Admin: 03/07/19 08:01 Dose: Not Given Documented by: Miscellaneous (Carbohydrates For Hypoglycemia) 15 - 30 gm PO UD PRN PRN Reason: Hypoglycemia Treatment Stop: 03/30/19 22:44 Last Admin: 03/07/19 07:29 Dose: 15 gm Documented by: Miscellaneous Information (Consult Glycemic Management Pharmacy) 1 ea N/A UD PRN; Protocol PRN Reason: Consult Stop: 03/30/19 22:27 Nitroglycerin (Nitrostat) 0.4 mg SL UD PRN PRN Reason: Chest Pain Stop: 03/30/19 22:11 Nystatin (Mycostatin) 5 ml PO QID [facility] Stop: 03/12/19 16:59 Last Admin: 03/07/19 12:16 Dose: 5 ml Documented by: Ondansetron HCl (Zofran) 4 mg IV Q6H PRN PRN Reason: Nausea Stop: 03/30/19 22:11 Pantoprazole Sodium (Protonix) 40 mg PO QAM [facility] Stop: 03/31/19 08:59 Last Admin: 03/07/19 07:53 Dose: 40 mg Documented by: Polyethylene Glycol (Miralax Powder Packet) 17 gm PO DAILY PRN PRN Reason: Constipation Stop: 03/30/19 22:11 Prednisone (Prednisone) 20 mg PO DAILY [facility]; Taper Stop: 03/09/19 08:59 Last Admin: 03/07/19 07:55 Dose: 20 mg Documented by: Sertraline HCl (Zoloft) 50 mg PO DAILY [facility] Stop: 03/31/19 08:59 Last Admin: 03/07/19 07:54 Dose: 50 mg Documented by: Sevelamer HCl (Renagel) 1,600 mg PO TIDM [facility] Stop: 03/31/19 07:59 Last Admin: 03/07/19 11:42 Dose: 1,600 mg Documented by: Vitamin B Complex/Folic Acid (Nephrocaps) 1 cap PO DAILY [facility] Stop: 03/31/19 08:59 Last Admin: 03/07/19 07:56 Dose: 1 cap Documented by:
--- NOTE | 2019-03-07 14:47 | Pharmacy Report ---
Pharmacy Glycemic Short Note 2 - Date of Service March 07, 2019 - Glycemic Short BSG Results (Last 24 hours): 03/06/19 03/06/19 03/06/19 14:29 16:22 20:32 Glucose POC Glucose 111 H 135 H 162 H 03/07/19 03/07/19 03/07/19 07:20 07:21 07:22 Glucose 59 L POC Glucose 66 L* 65 L* 03/07/19 03/07/19 07:48 11:08 Glucose POC Glucose 70 116 H Outpatient Anti-diabetic Regimen: * Novolog 8 units TID with meals + Sliding scale 0-12 units * Lantus 14 units SC daily * A1c = 6.5 % 03/01/19 Risk Factors for Insulin Resistance: * Steroids: ongoing taper - prednisone 40 mg yesterday, 30 mg today, and 20 mg scheduled for tomorrow * Infection: Sepsis 2nd aspiration pneumonitis - doxycycline PO * Diet: T2DM ASSESSMENT: * 78 yo M with hx IDDM, ESRD admitted with sepsis 2nd aspiration pneumonitis. He utilizes peritoneal dialysis as an outpatient but has been transitioned to HD as inpatient * AM fasting BSG decreased from 110 to 70 mg/dL yesterday to today. Will decrease dose by ~15%. Hesitant to be more aggressive with decrease in IDDM as this dose will be below the patient's home dose despite steroids currently on board * Will loosen Novolog parameters further. Will also significantly loosen HS x1 to help prevent AM hypoglycemia PLAN FOR INPATIENT GLYCEMIC CONTROL: * Basal insulin: Lantus 12 units SQ x1 this AM. * Bolus insulin * NovoLog per scale ACHS or Q6hrs while NPO * Goal Range: Low 110 mg/dL - High 140 mg/dL * Correction Factor: 25 mg/dL/unit (loosen to 40 mg/dL/unit at HS x1) * Carb ratio: 8 g CHO/unit (loosen to 15 g CHO/unit at HS x1)
--- NOTE | 2019-03-07 16:23 | Nephrology Progress Note ---
Date of Service March 07, 2019 Assessment & Plan (1) ESRD (end stage renal disease) on dialysis: pt is traditionally on PD but has functional AVF; Now doing HD. Patient had episode of hypotension and rapid A. fib 03/04. Patient tolerated dialysis yesterday. Blood pressure on the lower side this morning. Will defer to cardiology regarding down titrating his anti arrhythmic and metoprolol. We will do dialysis tomorrow. We will also flush his PD catheter tomorrow. (2) Congestive heart failure: Appears well compensated now. Cardiology following closely; for conservative mgt; continue to optimize volume status with dialysis. (3) Anemia: aggressive epo, IV iron on dialysis; t stn 15% this admission; no heparin since on gtt (4) Pneumonia: Due to aspiration. Patient being evaluated for dysphagia by speech swallow and gastroenterology. Improving on steroids, zosyn; will optimize volume status Subjective ESRD patient seen in follow up during morning rounds.he feels well, reports no shortness of breath or pain. He continues to choke while drinking and eating. He is being evaluated for dysphagia. Brother was at the bedside Review of Systems Review of Systems: All systems reviewed & are unremarkable except as noted in HPI & below Physical Exam Physical Exam: General exam: Appears comfortable, no acute distress HEENT: Pupils are equal and reactive to light Neck: No JVD, neck is supple trachea is midline Respiratory system: Clear breath sounds bilaterally. Gastrointestinal: Abdomen is soft, non distended, non tender, bowel sounds are present CVS: Regular rate and rhythm. No murmurs, rubs or gallops Musculoskeletal: No joint or muscle tenderness Extremities: Non tender, no edema, peripheral pulses are present Neuro: Oriented, no tremors, no focal neurological deficits Skin: No rashes Access: AV fistula with good bruit, PD catheter. Results & Data Vital Signs (Past 12 Hours) Vital Signs Temp Pulse Pulse Pulse Resp BP Pulse Ox 03/07/19 15:51 36.6 C 67 18 114/53 L 95 03/07/19 11:11 36.4 C L 53 L 18 111/58 L 100 03/07/19 08:22 36.5 C 61 20 86/48 L 98 03/07/19 08:00 63 03/07/19 04:47 36.5 C 52 L 17 110/61 100 Laboratory Results Laboratory Results - last 24 hr 03/06/19 03/06/19 03/07/19 16:22 20:32 07:20 WBC RBC Hgb Hct MCV MCH MCHC RDW Std Deviation RDW Coeff of Mp Plt Count MPV Immature Gran % (Auto) Neut % (Auto) Lymph % (Auto) [place] % (Auto) Eos % (Auto) Baso % (Auto) Immature Gran # (Auto) Neut # (Auto) Lymph # (Auto) [place] # (Auto) Eos # (Auto) Baso # (Auto) Absolute Nucleated RBC Nucleated RBC % (auto) Sodium Potassium Chloride Carbon Dioxide Anion Gap BUN Creatinine Est Cr Clr Drug Dosing Est GFR ( Amer) Est GFR (Non-Af Amer) BUN/Creatinine Ratio Glucose POC Glucose 135 H 162 H 66 L* Calcium 03/07/19 03/07/19 03/07/19 07:21 07:21 07:22 WBC 9.66 RBC 2.93 L Hgb 9.6 L Hct 29.5 L MCV 100.7 H MCH 32.8 MCHC 32.5 RDW Std Deviation 65.6 H RDW Coeff of Mp 19.8 H Plt Count 206 MPV 10.3 Immature Gran % (Auto) 0.8 Neut % (Auto) 68.8 Lymph % (Auto) 16.0 [place] % (Auto) 13.3 Eos % (Auto) 1.0 Baso % (Auto) 0.1 Immature Gran # (Auto) 0.08 H Neut # (Auto) 6.64 H Lymph # (Auto) 1.55 [place] # (Auto) 1.28 H Eos # (Auto) 0.10 Baso # (Auto) 0.01 Absolute Nucleated RBC 0.09 H Nucleated RBC % (auto) 0.9 Sodium 135 L Potassium 3.7 Chloride 98 Carbon Dioxide 28 Anion Gap 10.0 BUN 45 H Creatinine 4.73 H* D Est Cr Clr Drug Dosing 14.6 Est GFR ( Amer) 12.9 Est GFR (Non-Af Amer) 11.1 BUN/Creatinine Ratio 9.5 L Glucose 59 L POC Glucose 65 L* Calcium 7.9 L 03/07/19 03/07/19 07:48 11:08 WBC RBC Hgb Hct MCV MCH MCHC RDW Std Deviation RDW Coeff of Mp Plt Count MPV Immature Gran % (Auto) Neut % (Auto) Lymph % (Auto) [place] % (Auto) Eos % (Auto) Baso % (Auto) Immature Gran # (Auto) Neut # (Auto) Lymph # (Auto) [place] # (Auto) Eos # (Auto) Baso # (Auto) Absolute Nucleated RBC Nucleated RBC % (auto) Sodium Potassium Chloride Carbon Dioxide Anion Gap BUN Creatinine Est Cr Clr Drug Dosing Est GFR ( Amer) Est GFR (Non-Af Amer) BUN/Creatinine Ratio Glucose POC Glucose 70 116 H Calcium (1) Congestive heart failure Heart failure chronicity: unspecified Heart failure type: unspecified Qualified Code(s): I50.9 - Heart failure, unspecified
--- NOTE | 2019-03-07 17:10 | Cardiology Progress Note ---
Date of Service March 07, 2019 Assessment & Plan (1) Paroxysmal atrial fibrillation with RVR: (2) Non-ST elevation (NSTEMI) myocardial infarction: (3) Acute on chronic systolic and diastolic heart failure, NYHA class 4: (4) Ischemic cardiomyopathy: (5) CAD (coronary artery disease): (6) Pneumonia: (7) ESRD (end stage renal disease) on dialysis: (8) Hypotension: 78-year-old patient admitted with aspiration pneumonia, congestive heart failure, and NSTEMI Developed rapid atrial fibrillation 03/04. Treated with amiodarone and IV fluids subsequently converting to sinus rhythm. Patient has remained in sinus rhythm. IV heparin discontinued. Continue current cardiovascular medications including amiodarone, metoprolol, and aspirin. Reduce amiodarone to 200 mg once daily at time of discharge. Volume status management per hemodialysis. Patient appears euvolemic/dry weight currently. Consider transition to long-term hemodialysis in the outpatient setting due to difficulties maintaining euvolemia with peritoneal dialysis while residing at the [facility]. Overall clinical status improving with medical management. Possible transfer to rehab in the next 24 to 48 hours. Subjective Patient seen and examined at the bedside. Improving clinically today. Denies chest pain or shortness of breath. No recurrent dysrhythmias on telemetry. Denies palpitations, orthopnea, or PND. Review of Systems Review of Systems: All systems reviewed & are unremarkable except as noted in HPI & below Physical Exam Physical Exam: General: NAD, AAO x3, chronically ill. HEENT: Normocephalic. Atraumatic. Conjunctiva pink, no scleral icterus. Neck: No carotid bruits, the carotid upstrokes are brisk. No JVD. No HJR Heart: Regular normal S-1 and S-2 no S-3 or S-4 gallop. 2/6 mid peaking systolic ejection murmur heard best at the right second intercostal space. PMI is not displaced. No RV heave. Lungs: Diminished breath sounds at the bases bilaterally. No rhonchi or wheeze. Abdomen: Mild distention, no tenderness or guarding. Normal bowel sounds. No masses or organomegaly. No abdominal bruits. Extremities: Left upper extremity fistula with palpable thrill. No clubbing, cyanosis, or edema. Pulses: Diminished femoral pulses bilaterally. Radial=1/4 on right. Femoral pulse: 1/4 on right, 3/4 on the left. Neuro: Cranial nerves grossly intact. No focal motor deficit. Results & Data Vital Signs (Past 12 Hours) Vital Signs Temp Pulse Pulse Resp BP Pulse Ox 03/07/19 15:51 36.6 C 67 18 114/53 L 95 03/07/19 11:11 36.4 C L 53 L 18 111/58 L 100 03/07/19 08:22 36.5 C 61 20 86/48 L 98 03/07/19 08:00 63
[2019-03-07] MEDS: LATANOPROST 0.005% OP SOLN 2.5 ML BTL OPB SCH (20:05)
[2019-03-07] MEDS ORDERED: INSULIN ASPART 100 UNITS/ML 3 ML PEN SC ONE (21:00)
[2019-03-08 06:41] LABS: Basophils # (auto) 0.02 K/uL (0-0.2); Basophils % (auto) 0.2 %; Eosinophils # (auto) 0.09 K/uL (0-0.5); Eosinophils % (auto) 0.8 %; Hematocrit (blood only) 29.1 % (42-52); Hemoglobin 9.5 g/dL (14.0-18.0); Immature Granulocytes % (auto) 1.7 %; Lymphocytes # (auto) 1.79 K/uL (1.2-3.4); Lymphocytes % (auto) 15.5 %; Mean Corpuscular Hgb Conc 32.6 g/dL (32-36); Mean Corpuscular Volume 99.7 fL (80-100); Mean Platelet Volume 10.3 fL (7.4-10.4); Monocytes % (auto) 14.7 %; Neutrophils # (auto) 7.76 K/uL (1.4-6.5); Neutrophils % (auto) 67.1 %; Nucleated RBC # (auto) 0.06 K/uL (0-0); Nucleated RBC % (auto) 0.6 %; Platelet Count 205 K/uL (130-400); RDW Coefficient of Variation 20.4 % (11.5-14.5); RDW Standard Deviation 65.5 fL (36.4-46.3); Red Blood Count 2.92 M/uL (4.7-6.1); White Blood Count 11.56 K/uL (4.8-10.8)
[2019-03-08 07:04] LABS: BUN Creatinine Ratio 10.1 (10-20); Calcium 7.9 mg/dl (8.5-10.1); Creatinine Clr Calc Pharmacy 11.1 ml/min; Est GFR (African American) 9.3; Magnesium 2.3 mg/dl (1.8-2.4); Potassium 4.4 mmol/L (3.5-5.1)
[2019-03-08 07:41] LABS: Anisocytosis Present; Macrocytosis Present; Polychromasia 1+
[2019-03-08] MEDS: SEVELAMER HCL 800 MG TABLET PO SCH ×3 (07:41→17:00)
[2019-03-08] MEDS: INSULIN ASPART 100 UNITS/ML 3 ML PEN SC SCH ×4 (07:42→20:46)
[2019-03-08] MEDS: DOCUSATE SODIUM 100 MG CAP PO SCH ×2 (07:44→20:36)
[2019-03-08] MEDS: PANTOprazole 40 MG TAB PO SCH (07:44)
[2019-03-08] MEDS: METOPROLOL SUCC 25MG EXT REL TAB PO SCH (07:44)
[2019-03-08] MEDS: AMIODARONE 200 MG TAB PO SCH (07:46)
[2019-03-08] MEDS: ATORVASTATIN 40 MG TAB PO SCH (07:46)
[2019-03-08] MEDS: DORZOLAMIDE/TIMOLOL 22.3/6.8MG/ML 10 ML BTL OPB SCH ×2 (07:46→20:36)
[2019-03-08] MEDS: NYSTATIN SUSP 500,000 U/5 ML UDC PO SCH ×4 (07:47→20:36)
[2019-03-08] MEDS: predniSONE 20 MG TAB PO SCH (07:48)
[2019-03-08] MEDS: NEPHROCAPS PO SCH (07:48)
[2019-03-08] MEDS: SERTRALINE HCL 50 MG TABLET PO SCH (07:49)
[2019-03-08] MEDS: CLOPIDOGREL BISULFATE 75 MG TAB PO SCH (07:49)
[2019-03-08] MEDS: ASPIRIN 81 MG ECTAB PO SCH (07:49)
[2019-03-08] MEDS: DOXYCYCLINE HYCLATE 100 MG CAP PO SCH (07:50)
[2019-03-08] MEDS ORDERED: SODIUM CHLORIDE 0.9% 1000ML 1,000 ML IV PRN (08:30)
[2019-03-08] MEDS ORDERED: EPOETIN ALFA 10,000 UNITS/ML VIAL IV SCH (08:30)
[2019-03-08] MEDS ORDERED: INSULIN GLARGINE SOLOSTAR 100 UNITS/ML 3 ML PEN SC ONE (09:00)
--- NOTE | 2019-03-08 10:03 | Pharmacy Report ---
Pharmacy Glycemic Short Note 2 - Date of Service March 08, 2019 - Glycemic Short BSG Results (Last 24 hours): 03/07/19 03/07/19 03/07/19 11:08 16:30 20:24 Glucose POC Glucose 116 H 168 H 192 H 03/08/19 03/08/19 06:21 07:38 Glucose 97 POC Glucose 95 Outpatient Anti-diabetic Regimen: * Novolog 8 units TID with meals + Sliding scale 0-12 units * Lantus 14 units SC daily * A1c = 6.5 % 03/01/19 Risk Factors for Insulin Resistance: * Steroids: ongoing taper - prednisone 20 mg yesterday, 10 mg today, and no steroids scheduled for tomorrow * Infection: Sepsis 2nd aspiration pneumonitis - resolved / antibiotics discontinued * Diet: T2DM ASSESSMENT: * 78 yo M with hx IDDM, ESRD admitted with sepsis 2nd aspiration pneumonitis. He utilizes peritoneal dialysis as an outpatient but has been transitioned to HD as inpatient * AM fasting BSG decreased 95 mg/dL this AM which is a trend up from the 70 mg/dL yesterday AM. Patient received *lower* than home dose of Lantus yesterday, even with steroids on board. Will continue this dose today. * BSG's trended up over the course of the day yesterday ([phone] mg/dL), likely 2nd insufficient prandial coverage as CHO ratio was loosened yesterday AM in anticipation of increased insulin sensitivity due to ongoing steroid taper. Despite this CHO ratio yesterday being insufficient to control post- prandial elevations in BSG's, will maintain this CHO ratio today as steroids are tapering by a further 50% and thus anticipate that current CHO ratio will perform better * HD today to end ~1345. BSG immediately post-HD will not be reflective of insulin therapy/adequacy of CHO ratio this AM. PLAN FOR INPATIENT GLYCEMIC CONTROL: * Basal insulin: Lantus qAM based on BSG * 10 units for BSG less than 80 mg/dL * 12 units for BSG 80-120 mg/dL * 14 units for BSG greater than 120 mg/dL * Bolus insulin * NovoLog per scale ACHS or Q6hrs while NPO * Goal Range: Low 110 mg/dL - High 140 mg/dL * Correction Factor: 25 mg/dL/unit * Carb ratio: 8 g CHO/unit
--- NOTE | 2019-03-08 10:14 | Nephrology Progress Note ---
Date of Service March 08, 2019 Assessment & Plan (1) ESRD (end stage renal disease) on dialysis: pt is traditionally on PD but has functional AVF; Now doing HD. Patient had episode of hypotension and rapid A. fib 03/04. Patient tolerating dialysis well this morning. Target UF 1.5 L. We will also flush his PD catheter with 1.5 L of 1.5% dextrose. Next dialysis will be Tuesday. (2) Congestive heart failure: Appears well compensated now. Cardiology following closely; for conservative mgt; continue to optimize volume status with dialysis. (3) Anemia: Will give 10,000 units of Epogen today with dialysis; t stn 15% this admission; no heparin since on gtt (4) Pneumonia: Due to aspiration. Patient being evaluated for dysphagia by speech swallow and gastroenterology. Improving on antibiotics per primary team. Subjective Patient seen and examined while on dialysis this morning. He is tolerating dialysis well. No shortness of breath. He continues to have dysphagia and eating thickened liquids. No leg swelling. Review of Systems Review of Systems: All systems reviewed & are unremarkable except as noted in HPI & below Physical Exam Physical Exam: General exam: Appears comfortable, no acute distress HEENT: Pupils are equal and reactive to light Neck: No JVD, neck is supple trachea is midline Respiratory system: Clear breath sounds bilaterally. Gastrointestinal: Abdomen is soft, non distended, non tender, bowel sounds are present CVS: Regular rate and rhythm. No murmurs, rubs or gallops Musculoskeletal: No joint or muscle tenderness Extremities: Non tender, no edema, peripheral pulses are present Neuro: Oriented, no tremors, no focal neurological deficits Skin: No rashes Access: AV fistula with good bruit, PD catheter. Results & Data Vital Signs (Past 12 Hours) Vital Signs Temp Pulse Pulse Pulse Resp BP Pulse Ox 03/08/19 08:05 36.5 C 58 L 25 H 122/67 95 03/08/19 03:28 36.5 C 68 20 108/50 L 98 03/08/19 00:00 56 L 03/07/19 23:23 36.5 C 56 L 23 108/68 100 Laboratory Results Laboratory Results - last 24 hr 03/07/19 03/07/19 03/07/19 11:08 16:30 20:24 WBC RBC Hgb Hct MCV MCH MCHC RDW Std Deviation RDW Coeff of Mp Plt Count MPV Immature Gran % (Auto) Neut % (Auto) Lymph % (Auto) [place] % (Auto) Eos % (Auto) Baso % (Auto) Immature Gran # (Auto) Neut # (Auto) Lymph # (Auto) [place] # (Auto) Eos # (Auto) Baso # (Auto) Absolute Nucleated RBC Nucleated RBC % (auto) Polychromasia Anisocytosis Macrocytosis Sodium Potassium Chloride Carbon Dioxide Anion Gap BUN Creatinine Est Cr Clr Drug Dosing Est GFR ( Amer) Est GFR (Non-Af Amer) BUN/Creatinine Ratio Glucose POC Glucose 116 H 168 H 192 H Calcium Magnesium 03/08/19 03/08/19 03/08/19 06:21 06:21 07:38 WBC 11.56 H RBC 2.92 L Hgb 9.5 L Hct 29.1 L MCV 99.7 MCH 32.5 MCHC 32.6 RDW Std Deviation 65.5 H RDW Coeff of Mp 20.4 H Plt Count 205 MPV 10.3 Immature Gran % (Auto) 1.7 Neut % (Auto) 67.1 Lymph % (Auto) 15.5 [place] % (Auto) 14.7 Eos % (Auto) 0.8 Baso % (Auto) 0.2 Immature Gran # (Auto) 0.20 H Neut # (Auto) 7.76 H Lymph # (Auto) 1.79 [place] # (Auto) 1.70 H Eos # (Auto) 0.09 Baso # (Auto) 0.02 Absolute Nucleated RBC 0.06 H Nucleated RBC % (auto) 0.6 Polychromasia 1+ Anisocytosis Present Macrocytosis Present Sodium 135 L Potassium 4.4 D Chloride 99 Carbon Dioxide 25 Anion Gap 11.0 BUN 62 H Creatinine 6.19 H* D Est Cr Clr Drug Dosing 11.1 Est GFR ( Amer) 9.3 Est GFR (Non-Af Amer) 8.0 BUN/Creatinine Ratio 10.1 Glucose 97 POC Glucose 95 Calcium 7.9 L Magnesium 2.3 (1) Congestive heart failure Heart failure chronicity: unspecified Heart failure type: unspecified Qualified Code(s): I50.9 - Heart failure, unspecified
--- NOTE | 2019-03-08 16:02 | Cardiology Progress Note ---
Date of Service March 08, 2019 Assessment & Plan (1) Acute on chronic systolic and diastolic heart failure, NYHA class 4: (2) Non-ST elevation (NSTEMI) myocardial infarction: (3) Paroxysmal atrial fibrillation with RVR: (4) Ischemic cardiomyopathy: (5) CAD (coronary artery disease): (6) Pneumonia: (7) ESRD (end stage renal disease) on dialysis: Continue current cardiovascular medications including amiodarone, metoprolol, and aspirin. Reduce amiodarone to 200 mg once daily at time of discharge. Patient appears euvolemic/dry weight currently. Consider transition to long- term hemodialysis in the outpatient setting due to difficulties maintaining euvolemia with peritoneal dialysis while residing at the [facility]. Patient appears stable for transfer to rehab facility from a cardiovascular perspective. Cardiology will sign off. Please call with questions. Subjective Patient seen and examined the bedside. Hemodialysis treatment completed. Notes mild fatigue. Cough developed this morning with minimal sputum production. No shortness of breath or chest discomfort. Remains in sinus rhythm on telemetry. Patient offers no concerns/complaints at this time. Review of Systems Review of Systems: All systems reviewed & are unremarkable except as noted in HPI & below Physical Exam Physical Exam: General: NAD, AAO x3, chronically ill. HEENT: Normocephalic. Atraumatic. Conjunctiva pink, no scleral icterus. Neck: No carotid bruits, the carotid upstrokes are brisk. No JVD. No HJR Heart: Regular normal S-1 and S-2 no S-3 or S-4 gallop. 2/6 mid peaking systolic ejection murmur heard best at the right second intercostal space. PMI is not displaced. No RV heave. Lungs: Mild expiratory wheezing bilaterally, scattered rhonchi. Abdomen: Mild distention, no tenderness or guarding. Normal bowel sounds. No masses or organomegaly. No abdominal bruits. Extremities: Left upper extremity fistula with palpable thrill. No clubbing, cyanosis, or edema. Pulses: Diminished femoral pulses bilaterally. Radial=1/4 on right. Femoral pulse: 1/4 on right, 3/4 on the left. Neuro: Cranial nerves grossly intact. No focal motor deficit. Results & Data Vital Signs (Past 12 Hours) Vital Signs Temp Pulse Pulse Pulse Resp BP BP 03/08/19 15:40 36.5 C 63 22 108/46 L 07/25/19 14:28 36.5 C 71 29 H 117/66 03/08/19 14:05 36.6 C 61 131/66 03/08/19 13:40 60 117/60 03/08/19 13:20 60 123/52 L 03/08/19 13:00 60 133/60 03/08/19 12:40 58 L 120/66 03/08/19 12:20 59 L 142/72 H 03/08/19 12:00 63 137/64 03/08/19 11:40 62 125/64 03/08/19 11:20 53 L 97/58 L 03/08/19 11:00 60 128/61 03/08/19 10:20 56 L 121/62 03/08/19 10:00 52 L 124/59 L 03/08/19 09:47 51 L 124/58 L 03/08/19 09:30 36.4 C L 51 L 03/08/19 08:05 36.5 C 58 L 25 H 122/67 Pulse Ox 03/08/19 15:40 98 03/08/19 14:28 99 03/08/19 14:05 03/08/19 13:40 03/08/19 13:20 03/08/19 13:00 03/08/19 12:40 03/08/19 12:20 03/08/19 12:00 03/08/19 11:40 03/08/19 11:20 03/08/19 11:00 03/08/19 10:20 03/08/19 10:00 03/08/19 09:47 03/08/19 09:30 03/08/19 08:05 95
--- NOTE | 2019-03-08 17:36 | Hospitalist Progress Note ---
Date of Service March 08, 2019 Assessment & Plan (1) Acute on chronic systolic and diastolic heart failure, NYHA class 4: Updated echo EF 25 to 30%, moderate to severe mitral regurgitation, Valvular status seems to be stable Volume management with hemodialysis per securities sales associate Appreciate nephrology input and recommended No signs of volume overload and no symptoms (2) Paroxysmal atrial fibrillation with RVR: Atrial fibrillation noted to be from 03/04 Has been on amiodarone and reverted to sinus rhythm Continue beta-alexandria and aspirin Appreciate cardiology input and recommendation We will continue amiodarone on discharge at a dose of 400 mg daily (3) Pneumonia: With possible sepsis Secondary to aspiration pneumonia Sputum culture, blood cultures: Negative Next nasal MRSA: Negative Changed antibiotic from ceftriaxone and Flagyl to Zosyn and doxycycline day 4 --> changed to Augmentin, Doxy, last day of antibiotics tomorrow March 07, 2019 Remains afebrile, improving, cough resolved Speech therapist ordered for evaluation of failure, aspiration risk VFSS performed: Positive for aspiration of thin liquids, silent Recommending slippery diet, thin liquids with chin tuck Please refer to full recommendations of speech therapist under notes for complete instructions This preventive measures were discussed in detail with the patient and his brother (4) Non-ST elevation (NSTEMI) myocardial infarction: Troponin trended up, highest 19.200 Appreciate cardiology input and recommendation In light of ongoing pneumonia, volume overload, recommended medical management Based on heparin IV drip, discontinued March 05, 2019 Denies any more chest pain No cardiac symptoms (5) CAD (coronary artery disease): Patient with known CAD and PCI to RCA with ANNIE 10/2018 On dual antiplatelet therapy with aspirin and Plavix Off coreg and lisinopril due to hypotension Continue high intensity statin Last echo 01/2019 revealed slight improvement of EF to 40% with inferior, posterior, septal wall severe hypokinesia Management per above (6) ESRD (end stage renal disease) on dialysis: Was on peritoneal dialysis Placed on hemodialysis for volume management while admitted Likely to continue with hemodialysis (7) IDDM (insulin dependent diabetes mellitus): Last A1c 6.0 on 10/2018 Currently on Lantus 14 units daily along with NovoLog with meals consult glycemic pharmacist for management given addition of steroids, appreciate their input given co morbidities loose control is acceptable to prevent hypoglycemia (8) ANI on CPAP: CPAP at bedtime (9) Anemia: Hemoglobin 9.5 No signs of active bleeding Continue to monitor (10) DVT prophylaxis: TEDS, SCDS Disposition: to be determined, case management consulted PT and OT have been requested Most likely will need rehab Follow up: PCP Dr. St upon discharge along with appropriate cardiology and nephrology follow up Discussed with the patient and her son Discharged tomorrow for rehab Subjective 03/07 The patient was seen and examined in telemetry unit in presence of the son Complains to have generalized weakness but denies any other acute symptoms and or distress 03/08 Patient was seen and examined in telemetry unit in presence of the problem He has been feeling a lot better and denies any acute symptoms Remains generally weak but has been getting physical therapy Review of Systems Review of Systems: All systems reviewed and are unremarkable except as noted below Constitutional: + fatigue and + anorexia Physical Exam Physical Exam: Lying in bed comfortably Constitutional: well developed, well nourished, + ill appearing, + frail appearing and cooperative; no acute distress Eyes: EOM intact bilaterally ENMT: Ears: no external ear abnormality Nose: no external nose abnormality Mouth: + dry oral mucous membranes Neck: trachea midline, no thyromegaly no nuchal rigidity Respiratory: normal respiratory effort, + cough and able to speak in complete sentences Auscultation: + diminished lung sounds (chance bl bases) and + crackles Cardiovascular: Rate/Rhythm: regular rate and regular rhythm Heart Sounds: + murmur Extremities: + AV fistula (+ t/b); no edema Gastrointestinal (Abdomen): Inspection/Auscultation: abdomen normal to inspection and normal bowel sounds Percussion/Palpation: abdomen soft; abdomen nontender Musculoskeletal: No acute arthritis in any of the joints Skin: no rashes, warm and dry Neurologic: moves all extremities Psychiatric: Orientation: alert and oriented x 3 Affect: + depressed affect Results & Data Vital Signs (Past 12 Hours) Vital Signs Temp Pulse Pulse Pulse Resp BP BP 03/08/19 15:40 36.5 C 63 22 108/46 L 03/08/19 14:28 36.5 C 71 29 H 117/66 03/08/19 14:05 36.6 C 61 131/66 03/08/19 13:40 60 117/60 03/08/19 13:20 60 123/52 L 03/08/19 13:00 60 133/60 03/08/19 12:40 58 L 120/66 03/08/19 12:20 59 L 142/72 H 03/08/19 12:00 63 137/64 03/08/19 11:40 62 125/64 03/08/19 11:20 53 L 97/58 L 03/08/19 11:00 60 128/61 03/08/19 10:20 56 L 121/62 03/08/19 10:00 52 L 124/59 L 03/08/19 09:47 51 L 124/58 L 03/08/19 09:30 36.4 C L 51 L 03/08/19 08:05 36.5 C 58 L 25 H 122/67 Pulse Ox 03/08/19 15:40 98 03/08/19 14:28 99 03/08/19 14:05 03/08/19 13:40 03/08/19 13:20 03/08/19 13:00 03/08/19 12:40 03/08/19 12:20 03/08/19 12:00 03/08/19 11:40 03/08/19 11:20 03/08/19 11:00 03/08/19 10:20 03/08/19 10:00 03/08/19 09:47 03/08/19 09:30 03/08/19 08:05 95 Laboratory Results Short CBC 03/08/19 Range/Units 06:21 WBC 11.56 H (4.8-10.8) K/uL Hgb 9.5 L (14.0-18.0) g/dL Hct 29.1 L (42-52) % Plt Count 205 (130-400) K/uL BMP 03/08/19 06:21 Sodium 135 L Potassium 4.4 D Chloride 99 Carbon Dioxide 25 BUN 62 H Creatinine 6.19 H* D Glucose 97 Calcium 7.9 L Medications Administered Current Inpatient Medications Acetaminophen (Tylenol) 650 mg PO Q4H PRN PRN Reason: Pain or Fever Stop: 03/30/19 22:11 Amiodarone HCl (Cordarone) 200 mg PO DAILY [facility] Stop: 04/08/19 08:59 Aspirin (Ecotrin Ectab) 81 mg PO DAILY [facility] Stop: 03/31/19 08:59 Last Admin: 03/08/19 07:49 Dose: 81 mg Documented by: Atorvastatin Calcium (Lipitor) 40 mg PO DAILY [facility] Stop: 03/31/19 08:59 Last Admin: 03/08/19 07:46 Dose: 40 mg Documented by: Clopidogrel Bisulfate (Plavix) 75 mg PO DAILY [facility] Stop: 03/31/19 08:59 Last Admin: 03/08/19 07:49 Dose: 75 mg Documented by: Dextrose (Dextrose 50%) 25 - 50 ml IV UD PRN; Protocol PRN Reason: Hypoglycemia Protocol Stop: 03/30/19 22:44 Docusate Sodium (Colace) 100 mg PO BID [facility] Stop: 03/31/19 08:59 Last Admin: 03/08/19 07:44 Dose: 100 mg Documented by: Dorzolamide/Timolol (Cosopt) 1 drops OPB BID [facility] Stop: 03/31/19 08:59 Last Admin: 03/08/19 07:46 Dose: 1 drops Documented by: Glucagon (Glucagen) 1 mg SQ UD PRN; Protocol PRN Reason: Hypoglycemia Protocol Stop: 03/30/19 22:44 Glucose (Glucose 40%) 15 - 30 gm PO UD PRN; Protocol PRN Reason: Hypoglycemia Protocol Stop: 03/30/19 22:44 Glucose (Dex4 Glucose) 4 - 8 tabs PO UD PRN; Protocol PRN Reason: Hypoglycemia Protocol Stop: 03/30/19 22:44 Insulin Aspart (Novolog Flexpen) 0 units SC ACHS [facility] Stop: 03/30/19 22:44 Last Admin: 03/08/19 17:00 Dose: 2 units Documented by: Insulin Glargine (Lantus Solostar Pen) 0 units SC QAM [facility]; Protocol Stop: 04/08/19 08:59 Ipratropium Potosi (Atrovent 0.02% 0.5mg/2.5ml) 0.5 mg INH Q4H PRN PRN Reason: Shortness Of Breath Or Wheezing Stop: 04/03/19 17:14 Last Admin: 03/05/19 22:47 Dose: 0.5 mg Documented by: Latanoprost (Xalatan Oph) 1 drops OPB HS [facility] Stop: 03/31/19 20:59 Last Admin: 03/07/19 20:05 Dose: 1 drops Documented by: Levalbuterol HCl (Xopenex 0.63 Mg/3 Ml Neb) 0.63 mg NEB Q4H PRN PRN Reason: Shortness Of Breath Or Wheezing Stop: 04/03/19 17:14 Last Admin: 03/05/19 22:49 Dose: 0.63 mg Documented by: Menthol (Nice) 1 adi BUCCAL UD PRN PRN Reason: Sore Throat Stop: 03/31/19 21:17 Metoprolol Succinate (Toprol Xl) 12.5 mg PO DAILY [facility] Stop: 04/05/19 08:59 Last Admin: 03/08/19 07:44 Dose: 12.5 mg Documented by: Miscellaneous (Carbohydrates For Hypoglycemia) 15 - 30 gm PO UD PRN PRN Reason: Hypoglycemia Treatment Stop: 03/30/19 22:44 Last Admin: 03/07/19 07:29 Dose: 15 gm Documented by: Katcellaneous Information (Consult Glycemic Management Pharmacy) 1 ea N/A UD PRN; Protocol PRN Reason: Consult Stop: 03/30/19 22:27 Nitroglycerin (Nitrostat) 0.4 mg SL UD PRN PRN Reason: Chest Pain Stop: 03/30/19 22:11 Nystatin (Mycostatin) 5 ml PO QID [facility] Stop: 03/12/19 16:59 Last Admin: 03/08/19 17:01 Dose: 5 ml Documented by: Ondansetron HCl (Zofran) 4 mg IV Q6H PRN PRN Reason: Nausea Stop: 03/30/19 22:11 Pantoprazole Sodium (Protonix) 40 mg PO QAM [facility] Stop: 03/31/19 08:59 Last Admin: 03/08/19 07:44 Dose: 40 mg Documented by: Polyethylene Glycol (Miralax Powder Packet) 17 gm PO DAILY PRN PRN Reason: Constipation Stop: 03/30/19 22:11 Prednisone (Prednisone) 10 mg PO DAILY [facility]; Taper Stop: 03/09/19 08:59 Last Admin: 03/08/19 07:48 Dose: 10 mg Documented by: Sertraline HCl (Zoloft) 50 mg PO DAILY [facility] Stop: 03/31/19 08:59 Last Admin: 03/08/19 07:49 Dose: 50 mg Documented by: Sevelamer HCl (Renagel) 1,600 mg PO TIDM [facility] Stop: 03/31/19 07:59 Last Admin: 03/08/19 17:00 Dose: 1,600 mg Documented by: Vitamin B Complex/Folic Acid (Nephrocaps) 1 cap PO DAILY MICHA[facility] Stop: 03/31/19 08:59 Last Admin: 03/08/19 07:48 Dose: 1 cap Documented by:
[2019-03-08] MEDS: LATANOPROST 0.005% OP SOLN 2.5 ML BTL OPB SCH (20:36)
[2019-03-09 07:05] LABS: Hematocrit (blood only) 28.9 % (42-52); Hemoglobin 9.5 g/dL (14.0-18.0); Mean Corpuscular Hgb Conc 32.9 g/dL (32-36); Mean Corpuscular Volume 102.1 fL (80-100); Mean Platelet Volume 10.2 fL (7.4-10.4); Nucleated RBC # (auto) 0.11 K/uL (0-0); Nucleated RBC % (auto) 1.7 %; Platelet Count 165 K/uL (130-400); RDW Coefficient of Variation 21.1 % (11.5-14.5); RDW Standard Deviation 68.9 fL (36.4-46.3); Red Blood Count 2.83 M/uL (4.7-6.1); White Blood Count 6.86 K/uL (4.8-10.8)
[2019-03-09] MEDS: CARBOHYDRATES FOR HYPOGLYCEMIA PO PRN (07:28)
[2019-03-09] MEDS: INSULIN ASPART 100 UNITS/ML 3 ML PEN SC SCH ×3 (08:12→16:35)
[2019-03-09] MEDS: SEVELAMER HCL 800 MG TABLET PO SCH ×3 (08:17→16:38)
[2019-03-09] MEDS: NEPHROCAPS PO SCH (08:17)
[2019-03-09] MEDS: METOPROLOL SUCC 25MG EXT REL TAB PO SCH (08:17)
[2019-03-09] MEDS: CLOPIDOGREL BISULFATE 75 MG TAB PO SCH (08:17)
[2019-03-09] MEDS: DOCUSATE SODIUM 100 MG CAP PO SCH (08:17)
[2019-03-09] MEDS: PANTOprazole 40 MG TAB PO SCH (08:17)
[2019-03-09] MEDS: ASPIRIN 81 MG ECTAB PO SCH (08:17)
[2019-03-09] MEDS: ATORVASTATIN 40 MG TAB PO SCH (08:17)
[2019-03-09] MEDS: SERTRALINE HCL 50 MG TABLET PO SCH (08:17)
[2019-03-09] MEDS: NYSTATIN SUSP 500,000 U/5 ML UDC PO SCH ×3 (08:18→16:38)
[2019-03-09] MEDS: DORZOLAMIDE/TIMOLOL 22.3/6.8MG/ML 10 ML BTL OPB SCH (08:18)
[2019-03-09] MEDS ORDERED: AMIODARONE 200 MG TAB PO SCH (09:00)
[2019-03-09] MEDS ORDERED: INSULIN GLARGINE SOLOSTAR 100 UNITS/ML 3 ML PEN SC SCH (09:00)
--- NOTE | 2019-03-09 10:02 | Nephrology Progress Note ---
Date of Service March 09, 2019 Assessment & Plan (1) ESRD (end stage renal disease) on dialysis: pt is traditionally on PD but has functional AVF; Now doing HD. Patient had episode of hypotension and rapid A. fib 03/04. Patient tolerated HD well yesterday. PD catheter was also flushed. Electrolytes are stable and no volume overload today. We will plan dialysis tomorrow. Patient will likely be transferred to [facility]. Next dialysis will be Tuesday. (2) Congestive heart failure: Appears well compensated now. Cardiology following closely; for conservative mgt; continue to optimize volume status with dialysis. (3) Anemia: Will continue 10,000 units of Epogen with dialysis; t stn 15% this admission; no heparin since on gtt (4) Pneumonia: Due to aspiration. Patient being evaluated for dysphagia by speech swallow and gastroenterology. Improving on antibiotics per primary team. Subjective ESRD patient seen in follow-up. He tolerated dialysis well yesterday. He also had his PD catheter flushed. He is feeling better this morning denies any shortness of breath or pain. Brother was at the bedside. He will likely go to [facility] Review of Systems Review of Systems: All systems reviewed & are unremarkable except as noted in HPI & below Physical Exam Physical Exam: General exam: Appears comfortable, no acute distress HEENT: Pupils are equal and reactive to light Neck: No JVD, neck is supple trachea is midline Respiratory system: Clear breath sounds bilaterally. Gastrointestinal: Abdomen is soft, non distended, non tender, bowel sounds are present. PD catheter present CVS: Regular rate and rhythm. No murmurs, rubs or gallops Musculoskeletal: No joint or muscle tenderness Extremities: Non tender, no edema, peripheral pulses are present Neuro: Oriented, no tremors, no focal neurological deficits Skin: No rashes Access: AV fistula Results & Data Vital Signs (Past 12 Hours) Vital Signs Temp Pulse Pulse Resp BP Pulse Ox 03/09/19 07:09 36.5 C 60 18 117/51 L 99 03/09/19 04:00 36.5 C 81 20 124/56 L 99 03/09/19 00:16 36.9 C 60 21 104/68 98 03/09/19 00:15 54 L Laboratory Results Laboratory Results - last 24 hr 03/08/19 03/08/19 03/08/19 14:21 16:28 20:46 WBC RBC Hgb Hct MCV MCH MCHC RDW Std Deviation RDW Coeff of Mp Plt Count MPV Absolute Nucleated RBC Nucleated RBC % (auto) POC Glucose 89 126 H 116 H 03/09/19 03/09/19 03/09/19 06:41 07:23 07:25 WBC 6.86 RBC 2.83 L Hgb 9.5 L Hct 28.9 L MCV 102.1 H MCH 33.6 MCHC 32.9 RDW Std Deviation 68.9 H RDW Coeff of Mp 21.1 H Plt Count 165 MPV 10.2 Absolute Nucleated RBC 0.11 H Nucleated RBC % (auto) 1.7 POC Glucose 69 L* 67 L* 03/09/19 07:41 WBC RBC Hgb Hct MCV MCH MCHC RDW Std Deviation RDW Coeff of Mp Plt Count MPV Absolute Nucleated RBC Nucleated RBC % (auto) POC Glucose 78 (1) Congestive heart failure Heart failure chronicity: unspecified Heart failure type: unspecified Qualified Code(s): I50.9 - Heart failure, unspecified
--- NOTE | 2019-03-09 11:32 | Hospitalist Progress Note ---
Date of Service March 09, 2019 Assessment & Plan (1) Acute on chronic systolic and diastolic heart failure, NYHA class 4: Updated echo EF 25 to 30%, moderate to severe mitral regurgitation, Valvular status seems to be stable Volume management with hemodialysis per vb net developer Appreciate nephrology input and recommended No signs of volume overload and no symptoms Continue hemodialysis (2) Paroxysmal atrial fibrillation with RVR: Atrial fibrillation noted to be from 03/04 Has been on amiodarone and reverted to sinus rhythm Continue beta-alexandria and aspirin Appreciate cardiology input and recommendation We will continue amiodarone on discharge at a dose of 200mg daily Reverted to sinus rhythm and is maintaining (3) Pneumonia: With possible sepsis Secondary to aspiration pneumonia Sputum culture, blood cultures: Negative Next nasal MRSA: Negative Changed antibiotic from ceftriaxone and Flagyl to Zosyn and doxycycline day 4 --> changed to Augmentin, Doxy, last day of antibiotics tomorrow March 07, 2019 Remains afebrile, improving, cough resolved Speech therapist ordered for evaluation of failure, aspiration risk VFSS performed: Positive for aspiration of thin liquids, silent Recommending slippery diet, thin liquids with chin tuck Please refer to full recommendations of speech therapist under notes for complete instructions This preventive measures were discussed in detail with the patient and his brother (4) Non-ST elevation (NSTEMI) myocardial infarction: Troponin trended up, highest 19.200 Appreciate cardiology input and recommendation In light of ongoing pneumonia, volume overload, recommended medical management Was on on heparin IV drip, discontinued March 05, 2019 Denies any more chest pain No cardiac symptoms (5) CAD (coronary artery disease): Patient with known CAD and PCI to RCA with ANNIE 10/2018 On dual antiplatelet therapy with aspirin and Plavix Off coreg and lisinopril due to hypotension Continue high intensity statin Last echo 01/2019 revealed slight improvement of EF to 40% with inferior, posterior, septal wall severe hypokinesia Management per above (6) ESRD (end stage renal disease) on dialysis: Was on peritoneal dialysis Placed on hemodialysis for volume management while admitted Likely to continue with hemodialysis Appreciate nephrology input and recommendation (7) IDDM (insulin dependent diabetes mellitus): Last A1c 6.0 on 10/2018 Currently on Lantus 14 units daily along with NovoLog with meals consult glycemic pharmacist for management given addition of steroids, appreciate their input given co morbidities loose control is acceptable to prevent hypoglycemia (8) ANI on CPAP: CPAP at bedtime (9) Anemia: Hemoglobin 9.5 No signs of active bleeding Continue to monitor-hemoglobin remains stable at 9.5 (10) DVT prophylaxis: TEDS, SCDS Disposition: to be determined, case management consulted PT and OT have been requested Most likely will need rehab Follow up: PCP Dr. St upon discharge along with appropriate cardiology and nephrology follow up Discussed with the patient and her son Discharged to [facility] today Subjective 03/07 The patient was seen and examined in telemetry unit in presence of the son Complains to have generalized weakness but denies any other acute symptoms and or distress 03/08 Patient was seen and examined in telemetry unit in presence of the problem He has been feeling a lot better and denies any acute symptoms Remains generally weak but has been getting physical therapy 03/09 The patient was seen and examined in telemetry unit in presence of the bladder He denies any symptoms Only complaint is weakness Review of Systems Review of Systems: All systems reviewed and are unremarkable except as noted below Constitutional: + fatigue and + weakness Neurologic: + generalized weakness Physical Exam Physical Exam: Lying in bed comfortably Constitutional: well developed, well nourished, + ill appearing, + frail appearing and cooperative; no acute distress Eyes: PERRL, conjunctivae normal, anicteric sclerae ENMT: external ear and nose normal, oropharynx normal Mouth: + dry oral mucous membranes Neck: trachea midline, no thyromegaly no nuchal rigidity Respiratory: normal respiratory effort, + cough and able to speak in complete sentences Auscultation: + diminished lung sounds (chance bl bases) and + crackles Cardiovascular: Rate/Rhythm: regular rate and regular rhythm Heart Sounds: + murmur Extremities: + AV fistula (+ t/b); no edema Gastrointestinal (Abdomen): Inspection/Auscultation: abdomen normal to inspection and normal bowel sounds Percussion/Palpation: abdomen soft; abdomen nontender Skin: no rashes, warm and dry Neurologic: moves all extremities Psychiatric: Orientation: alert and oriented x 3 Affect: + depressed affect Lymphatic: no cervical or axillary lymphadenopathy Results & Data Vital Signs (Past 12 Hours) Vital Signs Temp Pulse Pulse Resp BP Pulse Ox 03/09/19 11:13 36.8 C 64 22 111/53 L 96 03/09/19 07:09 36.5 C 60 18 117/51 L 99 03/09/19 04:00 36.5 C 81 20 124/56 L 99 03/09/19 00:16 36.9 C 60 21 104/68 98 03/09/19 00:15 54 L Laboratory Results Short CBC 03/09/19 Range/Units 06:41 WBC 6.86 (4.8-10.8) K/uL Hgb 9.5 L (14.0-18.0) g/dL Hct 28.9 L (42-52) % Plt Count 165 (130-400) K/uL Medications Administered Current Inpatient Medications Acetaminophen (Tylenol) 650 mg PO Q4H PRN PRN Reason: Pain or Fever Stop: 03/30/19 22:11 Amiodarone HCl (Cordarone) 200 mg PO DAILY [facility] Stop: 04/08/19 08:59 Last Admin: 03/09/19 08:17 Dose: 200 mg Documented by: Aspirin (Ecotrin Ectab) 81 mg PO DAILY [facility] Stop: 03/31/19 08:59 Last Admin: 03/09/19 08:17 Dose: 81 mg Documented by: Atorvastatin Calcium (Lipitor) 40 mg PO DAILY [facility] Stop: 03/31/19 08:59 Last Admin: 03/09/19 08:17 Dose: 40 mg Documented by: Clopidogrel Bisulfate (Plavix) 75 mg PO DAILY [facility] Stop: 03/31/19 08:59 Last Admin: 03/09/19 08:17 Dose: 75 mg Documented by: Dextrose (Dextrose 50%) 25 - 50 ml IV UD PRN; Protocol PRN Reason: Hypoglycemia Protocol Stop: 03/30/19 22:44 Docusate Sodium (Colace) 100 mg PO BID [facility] Stop: 03/31/19 08:59 Last Admin: 03/09/19 08:17 Dose: 100 mg Documented by: Dorzolamide/Timolol (Cosopt) 1 drops OPB BID [facility] Stop: 03/31/19 08:59 Last Admin: 03/09/19 08:18 Dose: 1 drops Documented by: Glucagon (Glucagen) 1 mg SQ UD PRN; Protocol PRN Reason: Hypoglycemia Protocol Stop: 03/30/19 22:44 Glucose (Glucose 40%) 15 - 30 gm PO UD PRN; Protocol PRN Reason: Hypoglycemia Protocol Stop: 03/30/19 22:44 Glucose (Dex4 Glucose) 4 - 8 tabs PO UD PRN; Protocol PRN Reason: Hypoglycemia Protocol Stop: 03/30/19 22:44 Insulin Aspart (Novolog Flexpen) 0 units SC ACHS [facility] Stop: 03/30/19 22:44 Last Admin: 03/09/19 08:12 Dose: Not Given Documented by: Insulin Glargine (Lantus Solostar Pen) 0 units SC QAM [facility]; Protocol Stop: 04/08/19 08:59 Last Admin: 03/09/19 08:18 Dose: 10 units Documented by: Ipratropium [place] (Atrovent 0.02% 0.5mg/2.5ml) 0.5 mg INH Q4H PRN PRN Reason: Shortness Of Breath Or Wheezing Stop: 04/03/19 17:14 Last Admin: 03/05/19 22:47 Dose: 0.5 mg Documented by: Latanoprost (Xalatan Oph) 1 drops OPB HS [facility] Stop: 03/31/19 20:59 Last Admin: 03/08/19 20:36 Dose: 1 drops Documented by: Levalbuterol HCl (Xopenex 0.63 Mg/3 Ml Neb) 0.63 mg NEB Q4H PRN PRN Reason: Shortness Of Breath Or Wheezing Stop: 04/03/19 17:14 Last Admin: 03/05/19 22:49 Dose: 0.63 mg Documented by: Menthol (Nice) 1 adi BUCCAL UD PRN PRN Reason: Sore Throat Stop: 03/31/19 21:17 Metoprolol Succinate (Toprol Xl) 12.5 mg PO DAILY [facility] Stop: 04/05/19 08:59 Last Admin: 03/09/19 08:17 Dose: 12.5 mg Documented by: Miscellaneous (Carbohydrates For Hypoglycemia) 15 - 30 gm PO UD PRN PRN Reason: Hypoglycemia Treatment Stop: 03/30/19 22:44 Last Admin: 03/09/19 07:28 Dose: 15 gm Documented by: Miscellaneous Information (Consult Glycemic Management Pharmacy) 1 ea N/A UD PRN; Protocol PRN Reason: Consult Stop: 03/30/19 22:27 Nitroglycerin (Nitrostat) 0.4 mg SL UD PRN PRN Reason: Chest Pain Stop: 03/30/19 22:11 Nystatin (Mycostatin) 5 ml PO QID [facility] Stop: 03/12/19 16:59 Last Admin: 03/09/19 08:18 Dose: 5 ml Documented by: Ondansetron HCl (Zofran) 4 mg IV Q6H PRN PRN Reason: Nausea Stop: 03/30/19 22:11 Pantoprazole Sodium (Protonix) 40 mg PO QAM [facility] Stop: 03/31/19 08:59 Last Admin: 03/09/19 08:17 Dose: 40 mg Documented by: Polyethylene Glycol (Miralax Powder Packet) 17 gm PO DAILY PRN PRN Reason: Constipation Stop: 03/30/19 22:11 Sertraline HCl (Zoloft) 50 mg PO DAILY [facility] Stop: 03/31/19 08:59 Last Admin: 03/09/19 08:17 Dose: 50 mg Documented by: Sevelamer HCl (Renagel) 1,600 mg PO TIDM [facility] Stop: 03/31/19 07:59 Last Admin: 03/09/19 08:17 Dose: 1,600 mg Documented by: Vitamin B Complex/Folic Acid (Nephrocaps) 1 cap PO DAILY [facility] Stop: 03/31/19 08:59 Last Admin: 03/09/19 08:17 Dose: 1 cap Documented by:
--- NOTE | 2019-03-09 11:52 | Pharmacy Report ---
Pharmacy Glycemic Short Note 2 - Date of Service March 09, 2019 - Glycemic Short BSG Results (Last 24 hours): 03/08/19 03/08/19 03/08/19 14:21 16:28 20:46 POC Glucose 89 126 H 116 H 03/09/19 03/09/19 03/09/19 07:23 07:25 07:41 POC Glucose 69 L* 67 L* 78 03/09/19 11:12 POC Glucose 122 H Outpatient Anti-diabetic Regimen: * Novolog 8 units TID with meals + Sliding scale 0-12 units * Lantus 14 units SC daily * A1c = 6.5 % 03/01/19 Risk Factors for Insulin Resistance: * Steroids: ongoing taper - prednisone 10 mg yesterday and no steroids scheduled for today * Infection: Sepsis 2nd aspiration pneumonitis - resolved / antibiotics discontinued * Diet: T2DM ASSESSMENT: * 78 yo M with hx IDDM, ESRD admitted with sepsis 2nd aspiration pneumonitis. He utilizes peritoneal dialysis as an outpatient but has been transitioned to HD as inpatient * AM fasting BSG decreased 78 mg/dL this AM. Patient received *lower* than home dose of Lantus yesterday, even with steroids on board. Will continue to decrease by ~20% now that steroids are discontinued and BSG is below goal range * Post-prandial BSG's well controlled yesterday. However, steroids are being discontinued today and will therefore loosen CHO ratio PLAN FOR INPATIENT GLYCEMIC CONTROL: * Basal insulin: Lantus 10 units SC x1 this AM * Bolus insulin * NovoLog per scale ACHS or Q6hrs while NPO * Goal Range: Low 110 mg/dL - High 140 mg/dL * Correction Factor: 25 mg/dL/unit * Carb ratio: 9 g CHO/unit DISCHARGE RECOMMENDATIONS * Per pharmacist discussion w Dr. Gutierrez - patient being discharged today * I spoke w RN (Juan) - patient going to [facility] Lantus SC qAM based on BSG * 8 units for BSG less than 80 mg/dL * 10 units for BSG 80-120 mg/dL * 12 units for BSG greater than 120 mg/dL Novolog SC ACHS * 1 unit Novolog for every 10 g CHO consumed PLUS sliding scale as follows: * Sliding scale * BSG 140-169 mg/dL: 1 unit * BSG 170-199 mg/dL: 2 units * BSG 200-229 mg/dL: 3 units * BSG 230-259 mg/dL: 4 units * BSG 260-299 mg/dL: 5 units * BSG 300 mg/dL or greater: 6 units and contact provider
--- NOTE | 2019-03-09 12:55 | Cardiology Progress Note ---
Date of Service March 09, 2019 Assessment & Plan (1) Acute on chronic systolic and diastolic heart failure, NYHA class 4: (2) Non-ST elevation (NSTEMI) myocardial infarction: (3) Paroxysmal atrial fibrillation with RVR: (4) Ischemic cardiomyopathy: (5) CAD (coronary artery disease): (6) Pneumonia: (7) ESRD (end stage renal disease) on dialysis: Continue current cardiovascular medications including amiodarone, metoprolol, and aspirin. Reduce amiodarone to 200 mg once daily. Patient may be transferred from telemetry to general medical floor at this time. Appears euvolemic/dry weight currently. Consider transition to long-term hemodialysis in the outpatient setting due to difficulties maintaining euvolemia with peritoneal dialysis while residing at the [facility]. Patient appears stable for transfer to rehab facility from a cardiovascular perspective. Cardiology will sign off. Please call with questions. Subjective Patient seen and examined the bedside. Cough and expiratory wheezing improved. Denies chest pain or shortness of breath. No recurrent atrial fibrillation on telemetry. Awaiting placement at this time. Review of Systems Review of Systems: All systems reviewed & are unremarkable except as noted in HPI & below Physical Exam Physical Exam: General: NAD, AAO x3, chronically ill. HEENT: Normocephalic. Atraumatic. Conjunctiva pink, no scleral icterus. Neck: No carotid bruits, the carotid upstrokes are brisk. No JVD. No HJR Heart: Regular normal S-1 and S-2 no S-3 or S-4 gallop. 2/6 mid peaking systolic ejection murmur heard best at the right second intercostal space. PMI is not displaced. No RV heave. Lungs: Mild expiratory wheezing bilaterally, scattered rhonchi. Abdomen: Mild distention, no tenderness or guarding. Normal bowel sounds. No masses or organomegaly. No abdominal bruits. Extremities: Left upper extremity fistula with palpable thrill. No clubbing, cyanosis, or edema. Pulses: Diminished femoral pulses bilaterally. Radial=1/4 on right. Femoral pulse: 1/4 on right, 3/4 on the left. Neuro: Cranial nerves grossly intact. No focal motor deficit. Results & Data Vital Signs (Past 12 Hours) Vital Signs Temp Pulse Resp BP Pulse Ox 03/09/19 11:13 36.8 C 64 22 111/53 L 96 03/09/19 07:09 36.5 C 60 18 117/51 L 99 03/09/19 04:00 36.5 C 81 20 124/56 L 99
--- NOTE | 2019-03-09 16:53 | Discharge Summary ---
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 Brother is at bedside. Pt currently at [facility] for acute rehab. He recently underwent kyphoplasty for acute lumbar compression fracture in early February. When at rehab today he overall didn't feel well, nauseated and had episode of emesis. Per brother when patient was eating lunch today he had episode of choking. The choking episode preceded his other symptoms. Since choking he developed moist cough, rhinorrhea and SOB. He denies any fever, chills, sweats, lightheadedness, dizziness, chest pain, abdominal pain, diarrhea. He makes minimal urine given PD. According to brother he has been compliant with PD but he is unaware of patient's weights because he did not seem to be measuring his weights. Appetite has overall been poor. According to brother he has had flu ctuating blood sugars. Of significant note patient was hospitalized at [facility] 10/2018. Initially he was hospitalized at [facility] and was transferred to [facility] secondary to elevated troponin. He underwent heart catheterization and had ANNIE to RCA. He was diagnosed with ischemic cardiomyopathy and an EF of 35%. He was started on dual antiplatelet regimen of aspirin and Plavix, high intensity statin as well as carvedilol and lisinopril. Subsequent during hospitalization he developed acute anemia and was diagnosed with a femoral hematoma which required blood transfusion. Patient was discharged home and has been participating in cardiac rehab. He did undergo an echocardiogram on 01/16/2019 which did reveal slight improvement in his EF to 40% with inferior, posterior and septal wall severely hypokinetic. Because of the improvement in the EF at this time and AICD is no longer recommended. Unfortunately patient has been having difficulty with hypotension and due to this his lisinopril and Coreg have since been discontinued. Admission Exam Per Admitting Provider Physical Exam: Gen: Tall, elderly, male, appears chronically ill, sitting up in bed, pleasant, conversing easily, mild respiratory distress Head: Normocephalic, Atraumatic, b/l temporal wasting Eyes: Sclera normal, no conjunctival injection, PERRLA, EOMI ENT: Gross hearing intact, normal pharynx, mucous membranes moist Neck: supple, no adenopathy, No JVD, no bruit, Resp: Diffuse inspiratory and expiratory rhonchi and wheezing noted throughout, increased inspiratory effort, abdominal accessory muscle use CV: Regular rate, regular rhythm, no murmur, rub, gallop, or ectopy Abd: +BS x 4, soft, nontender, nondistended Musculoskeletal: moves extremities active rom x 4, strength intact, 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 Discharge Exam Constitutional well developed, well nourished, + ill appearing, + frail appearing and cooperative; no acute distress Eyes PERRL, conjunctivae normal, anicteric sclerae EOM intact bilaterally ENMT external ear and nose normal, oropharynx normal Ears: no external ear abnormality Nose: no external nose abnormality Mouth: + dry oral mucous membranes Neck trachea midline, no thyromegaly no nuchal rigidity Respiratory normal respiratory effort, + cough and able to speak in complete sentences Auscultation: + diminished lung sounds (chance bl bases) and + crackles Cardiovascular Rate/Rhythm: regular rate and regular rhythm Heart Sounds: + murmur Extremities: + AV fistula (+ t/b); no edema Gastrointestinal (Abdomen) Inspection/Auscultation: abdomen normal to inspection and normal bowel sounds Percussion/Palpation: abdomen soft; abdomen nontender Skin no rashes, warm and dry Neurologic moves all extremities Psychiatric Orientation: alert and oriented x 3 Affect: + depressed affect Lymphatic no cervical or axillary lymphadenopathy Discharge Data Allergies Allergy/AdvReac Type Severity Reaction Status Date / Time No Known Allergies Allergy Verified 02/28/19 19:45 Consultations 02/28/19 19:50 ED Decision to Admit Stat 02/28/19 22:12 Consult Cardiology Routine Consult Case Management - Discharge Planning Routine Consult Nephrology Routine Ordered Studies 03/02/19 12:30 FL video swallow Routine Hospital Course (1) Acute on chronic systolic and diastolic heart failure, NYHA class 4: Updated echo EF 25 to 30%, moderate to severe mitral regurgitation, Valvular status seems to be stable Volume management with hemodialysis per motor block mechanic Appreciate nephrology input and recommended No signs of volume overload and no symptoms Continue hemodialysis (2) Paroxysmal atrial fibrillation with RVR: Atrial fibrillation noted to be from 03/04 Has been on amiodarone and reverted to sinus rhythm Continue beta-alexandria and aspirin Appreciate cardiology input and recommendation We will continue amiodarone on discharge at a dose of 200mg daily Reverted to sinus rhythm and is maintaining (3) Pneumonia: With possible sepsis Secondary to aspiration pneumonia Sputum culture, blood cultures: Negative Next nasal MRSA: Negative Changed antibiotic from ceftriaxone and Flagyl to Zosyn and doxycycline day 4 --> changed to Augmentin, Doxy, last day of antibiotics tomorrow March 07, 2019 Remains afebrile, improving, cough resolved Speech therapist ordered for evaluation of failure, aspiration risk VFSS performed: Positive for aspiration of thin liquids, silent Recommending slippery diet, thin liquids with chin tuck Please refer to full recommendations of speech therapist under notes for complete instructions This preventive measures were discussed in detail with the patient and his brother (4) Non-ST elevation (NSTEMI) myocardial infarction: Troponin trended up, highest 19.200 Appreciate cardiology input and recommendation In light of ongoing pneumonia, volume overload, recommended medical management Was on on heparin IV drip, discontinued March 05, 2019 Denies any more chest pain No cardiac symptoms (5) CAD (coronary artery disease): Patient with known CAD and PCI to RCA with ANNIE 10/2018 On dual antiplatelet therapy with aspirin and Plavix Off coreg and lisinopril due to hypotension Continue high intensity statin Last echo 01/2019 revealed slight improvement of EF to 40% with inferior, posterior, septal wall severe hypokinesia Management per above (6) ESRD (end stage renal disease) on dialysis: Was on peritoneal dialysis Placed on hemodialysis for volume management while admitted Likely to continue with hemodialysis Appreciate nephrology input and recommendation (7) IDDM (insulin dependent diabetes mellitus): Last A1c 6.0 on 10/2018 Currently on Lantus 14 units daily along with NovoLog with meals consult glycemic pharmacist for management given addition of steroids, appreciate their input given co morbidities loose control is acceptable to prevent hypoglycemia (8) ANI on CPAP: CPAP at bedtime (9) Anemia: Hemoglobin 9.5 No signs of active bleeding Continue to monitor-hemoglobin remains stable at 9.5 (10) DVT prophylaxis: TEDS, SCDS Disposition: to be determined, case management consulted PT and OT have been requested Most likely will need rehab Follow up: PCP Dr. St upon discharge along with appropriate cardiology and nephrology follow up Discussed with the patient and her son [facility]charged to [facility] today Total Time Total Time Spent Total Time Spent (In Minutes): 40 minutes Total Time Includes: Examination of the Patient, Discharge Planning, Medication Reconciliation and Communication With Other Providers Discharge Plan Discharge Items Patient Disposition: Transfer [facility] Reason For Visit: HYPOTENSION,PNEUMONITIS Discharge Diagnosis: Acute on chronic systolic and diastolic heart failure, end- stage renal disease on hemodialysis, paroxysmal atrial fibrillation-now in sinus rhythm, pneumonia secondary to aspiration. Condition: Fair Discharge Goals: Decrease discomfort, Increase independence and Improve nutritio nal status Activity: Resume your previous activity Non-emergency contact: Primary Care Provider Call non-emergency contact if: you have any medication questions and your symptoms worsen Follow-up/Referrals: PCP,NO [Primary Care Provider] - Diet: Carb Consistent or DM2 and Heart Healthy Fluids: 1500ml (6 cups) Addtl Provider Instructions: DISCHARGE RECOMMENDATIONS from glycemic pharmacist: Per pharmacist discussion w Dr. Gutierrez - patient being discharged today I spoke w RN (Juan) - patient going to [facility] Lantus SC qAM based on BSG 8 units for BSG less than 80 mg/dL 10 units for BSG 80-120 mg/dL 12 units for BSG greater than 120 mg/dL Novolog SC ACHS 1 unit Novolog for every 10 g CHO consumed PLUS sliding scale as follows: Sliding scale BSG 140-169 mg/dL: 1 unit BSG 170-199 mg/dL: 2 units BSG 200-229 mg/dL: 3 units BSG 230-259 mg/dL: 4 units BSG 260-299 mg/dL: 5 units BSG 300 mg/dL or greater: 6 units and contact provider Prescriptions: New nystatin 100,000 unit/mL Suspension 5 ml PO QID 7 Days Qty: 140 RF: 0 amiodarone 200 mg Tablet 200 mg PO DAILY 30 Days Qty: 30 RF: 0 metoprolol succinate 25 mg Tablet Extended Release 24 Hr 12.5 mg PO DAILY 30 Days Qty: 15 RF: 0 Continued latanoprost 0.005 % drops 1 drp OPB HS RF: 0 atorvastatin 40 mg tablet 40 mg PO DAILY RF: 0 acetaminophen 325 mg Tablet 650 mg PO Q4H PRN (Reason: Pain) RF: 0 sennosides-docusate sodium [Senokot-S] 8.6-50 mg Tablet 1 tab PO .Q LUNCH PRN (Reason: Constipation) RF: 0 clopidogrel 75 mg tablet 75 mg PO DAILY RF: 0 tamsulosin 0.4 mg capsule 0.4 mg PO DAILY RF: 0 bisacodyl 10 mg Suppository 10 mg MT DAILY PRN (Reason: Constipation) RF: 0 pantoprazole 40 mg Tablet,Delayed Release (Dr/Ec) 40 mg PO QAM RF: 0 Fleet Enema 19-7 gram/118 mL Enema 133 ml MT DAILY PRN (Reason: Constipation) RF: 0 nitroglycerin 0.4 mg tablet, sublingual 0.4 mg sublingual DIRECTED PRN (Reason: Chest Pain) RF: 0 docusate sodium 100 mg Capsule 100 mg PO BID RF: 0 aspirin 81 mg Tablet,Chewable 81 mg PO DAILY RF: 0 dorzolamide-timolol 22.3-6.8 mg/mL drops 1 drp OPB BID RF: 0 nystatin 100,000 unit/gram Powder 1 applic TOPICAL BID RF: 0 Renal Caps 1 mg Capsule 1 cap PO DAILY RF: 0 polyethylene glycol 3350 [Miralax] 17 gram/dose Powder 17 g PO DAILY RF: 0 sertraline 50 mg Tablet 50 mg PO DAILY RF: 0 finasteride 5 mg tablet 5 mg PO DAILY RF: 0 Milk Of Magnesia Concentrated 2,400 mg/10 mL Suspension 30 ml PO DAILY PRN (Reason: Constipation) RF: 0 sevelamer carbonate 800 mg tablet 1,600 mg PO TIDM RF: 0 dextrose [Glucose Gel] 40 % Gel 15 g PO DIRECTED PRN (Reason: Hypoglycemia) RF: 0 glucagon HCl 1 mg Recon Soln 1 mg subcut DIRECTED PRN (Reason: Hypoglycemia) RF: 0 Changed Novolog Flexpen U-100 Insulin 100 unit/mL (3 mL) insulin pen 1 unit subcut UD Qty: 0 RF: 0 insulin glargine 100 unit/mL Solution 1 unit SUBCUT UD Qty: 0 RF: 0 Discontinued oxycodone-acetaminophen 5-325 mg Tablet 1 tab PO Q6H PRN (Reason: Pain) RF: 0 Novolog U-100 Insulin aspart 100 unit/mL Solution 1 sliding scale dose SUBCUT USEASDIRECTD RF: 0 polyethylene glycol 3350 [Miralax] 17 gram/dose Powder 17 g PO .Q LUNCH PRN (Reason: Constipation) RF: 0 heparin (porcine) 5,000 unit/mL Solution 5,000 unit SUBCUT Q12H RF: 0 Stand-Alone Forms: [facility] Discharge Orders: Discharge Order (Routine); Ordered 03/09/19 Ordered By: Lucila Gutierrez Skilled Items Patient informed of condition?: Yes DNR: No Discharge Level of Care: Skilled Communicable Disease: No Discharge Prognosis: Stable Admission Data Admit Date/Time: 02/28/19 21:13 Attending Provider: Lucila Gutierrez Admit Provider: Jatin Paulson Primary Care Provider: PCP,NO Other Providers: Nica Hoffman ; David Valerio ; Jatin Paulson ; Byron [place] Service: Intensive Care Unit
== END 2019-03-09 17:45 | DRG 871 ==
LOC: ED 17:36 → 2S 21:13 → SUATTDRO 21:13 → 2S 21:37 → 1E 03-01 09:18 → 2E 03-01 14:59